=== PATIENT | male | born 1965 | race Caucasian/White ===

== ENCOUNTER 2020-02-28 10:22 | Emergency (ER) | payer OTHER ==
[~2020-02-28] VITALS: Ht 172.7 cm; Wt 75.0 kg
[2020-02-28] MEDS ORDERED: IV NORMAL SALINE 1000ML BAG 1,000 ML IV SCH (10:51)
--- NOTE | 2020-02-28 10:57 | ED.ADGEN ---
Past Medical History Past Medical History: Diabetes-Type I, Hypertension, Kidney Stone Additional Past Medical Histor: STAPH INFECTION ON LEFT LEG W/ SX Past Surgical History: Appendectomy, Cholecystectomy Additional Past Surgical Histo: ROTATOR CUFF SX Smoking Status: Current Some Day Smoker Alcohol Use: None Adult General Chief Complaint Chief Complaint: ABDOMINAL PAIN HPI HPI Patient is a 54 year old male who presents for nausea, vomiting, generalized abdominal pain. Was hospitalized at [facility] 1 week ago and discharged with new prescriptions for insulin, he has not had any since discharge. Was previously on insulin NPH and regular insulin. He was discharged with a prescription for Humulin and Levemir but is unable to afford the medications. Patient states he ran out of his Percocet that he takes for pain. Review of Systems Review of Systems Constitutional: Denies fever or chills. [] Eyes: Denies change in visual acuity. [] HENT: Denies nasal congestion or sore throat. [] Respiratory: Denies cough or shortness of breath. [] Cardiovascular: Denies chest pain or edema. [] GI: Denies abdominal pain, nausea, vomiting, bloody stools or diarrhea. [] : Denies dysuria. [] Musculoskeletal: Denies back pain or joint pain. [] Integument: Denies rash. [] Neurologic: Denies headache, focal weakness or sensory changes. [] Endocrine: Denies polyuria or polydipsia. [] Lymphatic: Denies swollen glands. [] Psychiatric: Denies depression or anxiety. [] Current Medications Current Medications Current Medications Medications (Trade) Dose Ordered Sig/Rock Start Time Stop Time Status Last Admin Dose Admin Morphine Sulfate (Morphine Sulfate) 4 mg PRN Q15MIN PRN 02/28/20 11:00 02/29/20 10:59 02/28/20 11:01 4 MG Ondansetron HCl (Zofran) 4 mg 1X ONCE 02/28/20 11:00 02/28/20 11:01 DC 02/28/20 11:02 4 MG Sodium Chloride 1,000 ml @ 1,000 mls/hr Q1H 02/28/20 10:51 02/28/20 11:50 DC 02/28/20 11:02 1,000 MLS/HR Allergies Allergies Allergies Coded Allergies Type Severity Reaction Last Updated Verified No Known Drug Allergies 10/5/20 No Physical Exam Physical Exam Constitutional: Well developed, well nourished, non-toxic appearance. [] HENT: Normocephalic, atraumatic, bilateral external ears normal, oropharynx moist, no oral exudates, nose normal. [] Eyes: PERRLA, EOMI, conjunctiva normal, no discharge. [] Neck: Normal range of motion, no tenderness, supple, no stridor. [] Cardiovascular:Heart rate regular rhythm, no murmur [] Lungs & Thorax: Bilateral breath sounds clear to auscultation [] Abdomen: Bowel sounds normal, soft, generalized tenderness and voluntary guarding [] Skin: Warm, dry, no erythema, no rash. [] Back: No tenderness, no CVA tenderness. [] Extremities: No tenderness, no cyanosis, no clubbing, ROM intact, no edema. [] Neurologic: Alert and oriented X 3, normal motor function, normal sensory function, no focal deficits noted. [] Psychologic: Affect normal, judgement normal, mood normal. [] Current Patient Data Vital Signs Vital Signs Date Time Temp Pulse Resp B/P (MAP) Pulse Ox O2 Delivery O2 Flow Rate FiO2 02/28/20 10:33 98.1 97 16 173/111 (131) 100 Room Air 98.1 Lab Values Laboratory Tests Test 02/28/20 10:41 02/28/20 10:43 02/28/20 12:25 Glucose (Fingerstick) 367 mg/dL (70-99) H White Blood Count 8.1 x10^3/uL (4.0-11.0) Red Blood Count 4.78 x10^6/uL (4.30-5.70) Hemoglobin 14.2 g/dL (13.0-17.5) Hematocrit 40.5 % (39.0-53.0) Mean Corpuscular Volume 85 fL (79-100) Mean Corpuscular Hemoglobin 30 pg (25-35) Mean Corpuscular Hemoglobin Concent 35 g/dL (31-37) Red Cell Distribution Width 15.1 % (11.5-14.5) H Platelet Count 351 x10^3/uL (140-400) Neutrophils (%) (Auto) 74 % (31-73) H Lymphocytes (%) (Auto) 20 % (24-48) L Monocytes (%) (Auto) 4 % (0-9) Eosinophils (%) (Auto) 1 % (0-3) Basophils (%) (Auto) 1 % (0-3) Neutrophils # (Auto) 6.0 x10^3/uL (1.8-7.7) Lymphocytes # (Auto) 1.6 x10^3/uL (1.0-4.8) Monocytes # (Auto) 0.4 x10^3/uL (0.0-1.1) Eosinophils # (Auto) 0.1 x10^3/uL (0.0-0.7) Basophils # (Auto) 0.1 x10^3/uL (0.0-0.2) Sodium Level 133 mmol/L (136-145) L Potassium Level 4.1 mmol/L (3.5-5.1) Chloride Level 99 mmol/L (98-107) Carbon Dioxide Level 24 mmol/L (21-32) Anion Gap 10 (6-14) Blood Urea Nitrogen 12 mg/dL (8-26) Creatinine 0.8 mg/dL (0.7-1.3) Estimated GFR (Cockcroft-Gault) 100.0 BUN/Creatinine Ratio 15 (6-20) Glucose Level 366 mg/dL (70-99) H Calcium Level 9.7 mg/dL (8.5-10.1) Phosphorus Level 3.7 mg/dL (2.6-4.7) Magnesium Level 1.7 mg/dL (1.8-2.4) L Total Bilirubin 0.4 mg/dL (0.2-1.0) Aspartate Amino Transferase (AST) 29 U/L (15-37) Alanine Aminotransferase (ALT) 41 U/L (16-63) Alkaline Phosphatase 111 U/L (46-116) Total Protein 7.7 g/dL (6.4-8.2) Albumin 4.0 g/dL (3.4-5.0) Albumin/Globulin Ratio 1.1 (1.0-1.7) Urine Collection Type Void Urine Color Yellow Urine Clarity Clear Urine pH 6.5 (<5.0-8.0) Urine Specific Gideon >=1.030 (1.000-1.030) Urine Protein 100 mg/dL (NEG-TRACE) Urine Glucose (UA) >=1000 mg/dL (NEG) Urine Ketones (Stick) 40 mg/dL (NEG) Urine Blood Negative (NEG) Urine Nitrite Negative (NEG) Urine Bilirubin Negative (NEG) Urine Urobilinogen Dipstick 0.2 mg/dL (0.2 mg/dL) Urine Leukocyte Esterase Negative (NEG) Urine RBC 0 /HPF (0-2) Urine WBC Occ /HPF (0-4) Urine Squamous Epithelial Cells Few /LPF Urine Bacteria Few /HPF (0-FEW) Laboratory Tests 02/28/20 10:43 Laboratory Tests 02/28/20 10:43 EKG EKG Heart rate 85, normal sinus rhythm, normal intervals, no ST elevation. Normal conduction, normal QRS [] Interpretation Time: 1115 Radiology/Procedures Radiology/Procedures EXAM: PORTABLE CHEST 1V 02/28/2020 10:51 AM CLINICAL INDICATION: Chest pain COMPARISON: Chest radiograph 02/19/2020 TECHNIQUE: AP upright view of the chest FINDINGS: A loop recorder projects over the heart. The heart and mediastinum are normal. Lungs are well-expanded. A nodular opacity projecting over the right lung base was not seen on prior exam but may be a nipple shadow. No consolidation, pleural effusion, or pneumothorax. Pulmonary vascularity is normal. The thoracic skeleton is intact. IMPRESSION: Nodular opacity projecting over the right lung base may be a nipple shadow. This could be confirmed with nipple markers. Otherwise negative radiograph of the chest. [] Course & Med Decision Making Course & Med Decision Making Pertinent Labs and Imaging studies reviewed. (See chart for details) [] Dragon Disclaimer Dragon Disclaimer This electronic medical record was generated, in whole or in part, using a voice recognition dictation system. Departure Departure Impression: Primary Impression: Abdominal pain Additional Impression: Uncontrolled diabetes mellitus Disposition: 01 HOME, SELF-CARE Condition: IMPROVED Referrals: Dr. Tinoco Patient Instructions: Correction Insulin, How and Where to Give Insulin Injections, Adult Additional Instructions: [facility] [address] [place] [address] [facility] [address] [place] [address] [place] [address] [facility] [address], [place] [address] Count Includes [facility] [address] [place] [address] [address] [place] [address] [address] [place] [address] [facility] [address] [place] [address] [facility] [address] [place] [address] [facility] [address] [place] [address] Scripts Oxycodone/Apap 5-325 (PERCOCET 5-325 MG TABLET ) 1 Each Tablet 2 TAB PO prn q8 PRN for PAIN for 2 Days, #12 TAB 0 Refills Prov: JAIME CARDONA MD 02/28/20 Insulin NPH Human Isophane (Novolin N Flexpen) 100 Unit/1 Ml Insuln.pen 15 UNIT SQ BID, #100 EACH Prov: JAIME CARDONA MD 02/28/20 Insulin Regular, Human (NOVOLIN R) 100 Unit/1 Ml Vial 7 UNIT IJ TID, #100 EACH Prov: JAIME CARDONA MD 02/28/20 Metoclopramide Hcl (REGLAN) 5 Mg Tablet 5 MG PO BIDAC for 7 Days, #14 TAB 0 Refills Prov: JAIME CARDONA MD 02/28/20 Problem Qualifiers JAIME CARDONA MD Feb 28, 2020 10:57
[2020-02-28] MEDS ORDERED: ONDANSETRON PF 4 MG/2 ML VIAL. IV ONE (11:00)
[2020-02-28] MEDS: MORPHINE SULFATE 4 MG/ML VIAL. IV/SQ PRN ×2 (11:01→13:15)
[2020-02-28 11:09] LABS: BASO # 0.1 x10^3/uL (0.0-0.2); BASO % 1 % (0-3); EOS # 0.1 x10^3/uL (0.0-0.7); EOS % 1 % (0-3); HEMATOCRIT 40.5 % (39.0-53.0); HEMOGLOBIN 14.2 g/dL (13.0-17.5); LYMPH # 1.6 x10^3/uL (1.0-4.8); LYMPH % 20 % (24-48); MEAN CORPUSCULAR HEMOGLOBIN 30 pg (25-35); MEAN CORPUSCULAR HGB CONC 35 g/dL (31-37); MEAN CORPUSCULAR VOLUME 85 fL (79-100); MONO # 0.4 x10^3/uL (0.0-1.1); MONO % 4 % (0-9); NEUT % 74 % (31-73); PLATELET COUNT 351 x10^3/uL (140-400); RED BLOOD COUNT 4.78 x10^6/uL (4.30-5.70); RED CELL DISTRIBUTION WIDTH 15.1 % (11.5-14.5); WHITE BLOOD COUNT 8.1 x10^3/uL (4.0-11.0)
[2020-02-28 11:21] LABS: CALCIUM 9.7 mg/dL (8.5-10.1); CREATININE 0.8 mg/dL (0.7-1.3)
[2020-02-28 11:26] LABS: ALBUMIN/GLOBULIN RATIO 1.1 (1.0-1.7); MAGNESIUM 1.7 mg/dL (1.8-2.4); PHOSPHORUS 3.7 mg/dL (2.6-4.7); TOTAL BILIRUBIN 0.4 mg/dL (0.2-1.0); TOTAL PROTEIN 7.7 g/dL (6.4-8.2)
[2020-02-28 11:27] LABS: POTASSIUM 4.1 mmol/L (3.5-5.1)
--- NOTE | 2020-02-28 11:30 | RAD ---
EXAM: PORTABLE CHEST 1V 02/28/2020 10:51 AM CLINICAL INDICATION: Chest pain COMPARISON: Chest radiograph 02/19/2020 TECHNIQUE: AP upright view of the chest FINDINGS: A loop recorder projects over the heart. The heart and mediastinum are normal. Lungs are well-expanded. A nodular opacity projecting over the right lung base was not seen on prior exam but may be a nipple shadow. No consolidation, pleural effusion, or pneumothorax. Pulmonary vascularity is normal. The thoracic skeleton is intact. IMPRESSION: Nodular opacity projecting over the right lung base may be a nipple shadow. This could be confirmed with nipple markers. Otherwise negative radiograph of the chest. Electronically signed by: Jennifer Winslow MD (02/28/2020 11:27 AM) [id number]
[2020-02-28 12:36] LABS: BILIRUBIN,URINE NEGATIVE (NEG); CLARITY,URINE CLEAR; COLOR,URINE YELLOW; NITRITE,URINE NEGATIVE (NEG); PH,URINE 6.5 (<5.0-8.0); PROTEIN,URINE 100 mg/dL (NEG-TRACE); UROBILINOGEN,URINE 0.2 mg/dL (0.2 mg/dL)
[2020-02-28 12:42] LABS: BACTERIA,URINE FEW /HPF (0-FEW); RBC,URINE 0 /HPF (0-2); WBC,URINE OCC /HPF (0-4)
--- NOTE | 2020-02-28 12:49 | EKG ---
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
[2020-02-28] MEDS ORDERED: OXYC1TAB15 PO (13:17)
[2020-02-28] MEDS ORDERED: INSU100V11 IJ (13:17)
[2020-02-28] MEDS ORDERED: METO5TAB55 PO (13:17)
[2020-02-28] MEDS ORDERED: INSU100I51 SQ (13:17)
[2020-02-28 13:33] VITALS: BP 146/87
[2020-02-28] MEDS ORDERED: MORPHINE SULFATE 2 MG/ML VIAL. IV ONE (13:45)
== END 2020-02-28 13:43 | disposition home or self-care (01) ==
LOC: ER 10:22
DX: R10.84 Generalized abdominal pain (principal); R11.2 Nausea with vomiting, unspecified; E10.9 Type 1 diabetes mellitus without complications; I10 Essential (primary) hypertension; Z87.442 Personal history of urinary calculi; Z90.89 Acquired absence of other organs; Z90.49 Acquired absence of other specified parts of digestive tract; Z98.890 Other specified postprocedural states; Z87.891 Personal history of nicotine dependence
CPT/HCPCS: 36415; 71045; 80053; 81001; 82962; 83735; 84100; 85025; 93005; 96361; 96374; 96375; 96376; 99285; J2270; J2405; J7030

== ENCOUNTER 2020-03-08 09:50 | Inpatient (IN) | payer OTHER ==
[~2020-03-08] VITALS: Ht 172.7 cm; Wt 73.8 kg
[~2020-03-08 09:50] MED LIST: INSU100I51 SQ; INSU100V11 IJ; METO5TAB55 PO; OXYC1TAB15 PO
[2020-03-08] MEDS ORDERED: IV NORMAL SALINE 1000ML BAG 1,000 ML IV SCH (10:18)
--- NOTE | 2020-03-08 10:21 | PHYS DOC ---
Past Medical History Past Medical History: Diabetes-Type I, Hypertension, Kidney Stone Additional Past Medical Histor: STAPH INFECTION ON LEFT LEG W/ SX Past Surgical History: Appendectomy, Cholecystectomy Additional Past Surgical Histo: ROTATOR CUFF SX Smoking Status: Current Some Day Smoker Alcohol Use: None General Adult EDM: Chief Complaint: NAUSEA/VOMITING/DIARRHA HPI: HPI: 54M with PMH of IDDM, p/w abd pain. Reports dull epigastric pain that began last night. Associated nausea and nonbloody/nonbilious emesis. Also reports some loose bowel movements. Was seen February 27 for abdominal pain as well. Prior to that, he was admitted to [place] for DM. Prior appendectomy and cholecystectomy. Review of Systems: Review of Systems: Gen: No fever, chills. Eyes: No blurred vision, diplopia. ENT: No nasal congestion, sore throat. CV: No CP, palpitations. Resp. No SOB, cough. GI: Reports abd pain, N/V. : No dysuria, hematuria. Reports polyuria. Neuro: No CHAPMAN, dizziness, weakness. MSK: No myalgia, arthralgia, back pain. Skin: No acute rash or lesion. Heart Score: Risk Factors: Risk Factors: DM, Current or recent (<one month) smoker, HTN, HLP, family history of CAD, obesity. Risk Scores: Score 0 - 3: 2.5% MACE over next 6 weeks - Discharge Home Score 4 - 6: 20.3% MACE over next 6 weeks - Admit for Clinical Observation Score 7 - 10: 72.7% MACE over next 6 weeks - Early Invasive Strategies Allergies: Allergies: Allergies Coded Allergies Type Severity Reaction Last Updated Verified No Known Drug Allergies 02/28/20 No Physical Exam: PE: Gen: NAD. Head: NC/AT. Eyes: No scleral icterus. No conjunctival injection. ENT: MMM. Posterior OP clear. Neck: Supple. NT. CV: RRR. Peripheral pulses intact. Resp: CTAB. Abd: Soft. Nondistended. Mid to upper abdominal tenderness without rebound, guarding, rigidity. MSK: No peripheral cyanosis. No edema. Neuro: Awake and alert. Skin. Warm. Dry. Psych: Appropriate mood & affect. Current Patient Data: Labs: Laboratory Tests Test 03/08/20 10:00 Glucose (Fingerstick) 491 mg/dL (70-99) H EKG: EKG: [] Radiology/Procedures: Radiology/Procedures: [] Course & Med Decision Making: Course & Med Decision Making Pertinent Labs and Imaging studies reviewed. (See chart for details) In summary, 54-year-old male with significant history of insulin-dependent diabetes mellitus with noncompliance, who presents evaluation of abdominal pain, nausea and vomiting. Hyperglycemic 491 on fingerstick. Elevated gap but normal ketones. CT abdomen/pelvis reveals findings consistent with colitis receiving Rocephin and Flagyl. Will be admitted for management of HHS, colitis, intractable nausea and vomiting. Insulin drip ordered. Dragon Disclaimer: Dragon Disclaimer: This electronic medical record was generated, in whole or in part, using a voice recognition dictation system. Departure Departure Impression: Primary Impression: Hyperosmolar hyperglycemic state (HHS) Additional Impressions: Colitis Intractable nausea and vomiting Disposition: ADMITTED INPT THIS HOSP Admitting Physician: DOLORES Condition: STABLE Referrals: SEFERINO WARE (PCP) DAKOTAH HARRIS DO Mar 08, 2020 10:21
[2020-03-08] MEDS ORDERED: ONDANSETRON PF 4 MG/2 ML VIAL. IVP ONE (10:30)
[2020-03-08] MEDS: MORPHINE SULFATE 4 MG/ML VIAL. IV/SQ PRN ×2 (10:32→12:53)
[2020-03-08 10:33] LABS: BASO # 0.1 x10^3/uL (0.0-0.2); BASO % 1 % (0-3); EOS % 0 % (0-3); HEMATOCRIT 45.8 % (39.0-53.0); HEMOGLOBIN 15.7 g/dL (13.0-17.5); LYMPH # 1.8 x10^3/uL (1.0-4.8); LYMPH % 13 % (24-48); MEAN CORPUSCULAR HEMOGLOBIN 29 pg (25-35); MEAN CORPUSCULAR HGB CONC 34 g/dL (31-37); MEAN CORPUSCULAR VOLUME 86 fL (79-100); MONO # 0.3 x10^3/uL (0.0-1.1); MONO % 2 % (0-9); NEUT # 11.3 x10^3/uL (1.8-7.7); NEUT % 83 % (31-73); PLATELET COUNT 338 x10^3/uL (140-400); RED BLOOD COUNT 5.32 x10^6/uL (4.30-5.70); RED CELL DISTRIBUTION WIDTH 14.7 % (11.5-14.5); WHITE BLOOD COUNT 13.6 x10^3/uL (4.0-11.0)
[2020-03-08 10:40] LABS: CALCIUM 10.1 mg/dL (8.5-10.1); CREATININE 1.3 mg/dL (0.7-1.3); GFR 57.1; POTASSIUM 3.9 mmol/L (3.5-5.1)
[2020-03-08 10:43] LABS: ALBUMIN 4.1 g/dL (3.4-5.0); TOTAL BILIRUBIN 0.6 mg/dL (0.2-1.0); TOTAL PROTEIN 8.3 g/dL (6.4-8.2)
[2020-03-08] MEDS ORDERED: IOHEXOL 300 MG/ML 100ML VIAL. IV ONE (10:45)
[2020-03-08 11:22] LABS: BILIRUBIN,URINE NEGATIVE (NEG); CLARITY,URINE CLEAR; COLOR,URINE YELLOW; NITRITE,URINE NEGATIVE (NEG); PROTEIN,URINE 100 mg/dL (NEG-TRACE); UROBILINOGEN,URINE 0.2 mg/dL (0.2 mg/dL)
--- NOTE | 2020-03-08 11:30 | RAD ---
CT abdomen and pelvis with contrast History: Mid abdominal pain Technique: After the administration of intravenous contrast, CT imaging was performed of the abdomen and pelvis. No oral contrast was given. Multiplanar images are reviewed. Exposure: One or more of the following individualized dose reduction techniques were utilized for this examination: 1. Automated exposure control 2. Adjustment of the mA and/or kV according to patient size 3. Use of iterative reconstruction technique. Comparison: February 19, 2020 Findings: There is no significant abnormality of the visualized lung bases. There is no significant focal abnormality of the liver, spleen, pancreas, adrenal glands. There is likely hepatic steatosis. Both kidneys enhance without hydronephrosis. There is again some nonspecific strandy change of the bilateral perinephric fat. There is again 1 cm hypodense lesion of the superior left kidney, density measurements suggestive of cyst 17 Hounsfield units. There has been cholecystectomy. Accurate evaluation of bowel is limited without oral contrast. No free air or free fluid is identified. There is scattered colonic diverticulosis greatest of the sigmoid colon. There is appearance of long segment variable colonic wall thickening throughout the colon greatest descending and proximal to mid sigmoid colon. There has been appendectomy. There is now appearance of circumferential urinary bladder wall thickening. Impression: 1. Suboptimally evaluated without oral contrast, there is appearance of variable long segment colonic wall thickening as may be seen with colitis. There is scattered colonic diverticulosis greatest of the sigmoid colon. 2. There is now appearance of circumferential urinary bladder wall thickening, could be due to incomplete distention unless suspicion for cystitis. 3. There is likely hepatic steatosis. 4. There has been appendectomy and cholecystectomy. 5. There is likely small cyst of the superior left kidney. Electronically signed by: Alireza Bishop MD (03/08/2020 11:27 AM) [facility]
[2020-03-08 11:38] LABS: BACTERIA,URINE 0 /HPF (0-FEW); RBC,URINE RARE /HPF (0-2); WBC,URINE RARE /HPF (0-4)
[2020-03-08] MEDS ORDERED: METOCLOPRAMIDE HCL 10 MG/2 ML VIAL. ONE (13:23)
[2020-03-08] MEDS ORDERED: METOCLOPRAMIDE HCL 10 MG/2 ML VIAL. IVP ONE (13:30)
[2020-03-08] MEDS ORDERED: INSULIN,REGULAR 100 UNIT DRIP 100 ML IV ONE (13:45)
[2020-03-08] MEDS ORDERED: cefTRIAXone IV Push 1 GM VIAL. IVP ONE (13:45)
[2020-03-08] MEDS ORDERED: ONDANSETRON PF 4 MG/2 ML VIAL. IV PRN (14:30)
--- NOTE | 2020-03-08 15:28 | HP ---
ADMIT DATE: 03/08/2020 CHIEF COMPLAINT: Nausea, vomiting, diarrhea. HISTORY OF PRESENT ILLNESS: The patient is a pleasant 54-year-old male who has type 1 diabetes. I am not sure if he is complying with his meds, basically he presents with nausea, vomiting, and diarrhea. He has associated epigastric pain. It was all night long, rates it at 09/10, worse with food, better with no food, describes as very irritating. While in the ER, we have noticed that he has a hyperglycemic hyperosmolar state and leukocytosis. We are going to admit the patient and he is currently on an insulin drip. PAST MEDICAL HISTORY: Noncompliance, diabetes, hypertension, hyperlipidemia, kidney stones, staph infection of the left leg, appendectomy, cholecystectomy, rotator cuff surgery, and tobacco abuse. ALLERGIES: None. FAMILY HISTORY: Diabetes. SOCIAL HISTORY: He smokes. No drinking or drugs. MEDICATIONS: Reviewed, please refer to the MRAD. REVIEW OF SYSTEMS: GENERAL: No history of weight change, weakness or fevers. SKIN: No bruising, hair changes or rashes. EYES: No blurred, double or loss of vision. NOSE AND THROAT: No history of nosebleeds, hoarseness or sore throat. HEART: No history of palpitations, chest pain or shortness of breath on exertion. LUNGS: Denies cough, hemoptysis, wheezing or shortness of breath. GASTROINTESTINAL: He complains of nausea, vomiting and diarrhea. GENITOURINARY: No history of frequency, urgency, hesitancy or nocturia. NEUROLOGIC: Denies history of numbness, tingling, tremor or weakness. PSYCHIATRIC: No history of panic, anxiety or depression. ENDOCRINE: No history of heat or cold intolerance, polyuria or polydipsia. EXTREMITIES: Denies muscle weakness, joint pain, pain on walking or stiffness. PHYSICAL EXAMINATION: VITALS: Within normal limits and are stable. GENERAL: No apparent distress. Alert and oriented. HEENT: Normal cephalic atraumatic, external auditory canals are patent EYES: Extraocular muscles are intact, pupils are equally round and reactive to light and accommodation MUSCULOSKELETAL: Well developed, well nourished, good range of motion ENDOCRINE: No thyromegaly was palpated LYMPHATICS: No cervical chain or axillary nodes were noted HEMATOPOIETIC: No bruising NECK: Supple, no JVD, no thyromegaly was noted. LUNGS: Clear to auscultation in all lung langford without rhonchi or wheezing. HEART: RRR, S1, S2 present. Peripheral pulses intact, no obvious murmurs were noted. ABDOMEN: Soft, nontender. Positive bowel sounds no organomegaly, normal bowel sounds. EXTREMITIES: Without any cyanosis, clubbing, or edema. Pedal pulses intact, Homans sign is negative. NEUROLOGIC: Normal speech, normal tone. A & O x3, moves all extremities, no obvious focal deficits. PSYCHIATRIC: Normal affect, normal mood. Stable. SKIN: No ulcerations or rashes, good skin turgor, no jaundice. VASCULAR: Good capillary refill, neurovascular bundle appears to be intact. IMAGING: CT of the abdomen shows some colonic thickening and hepatic steatosis. ASSESSMENT AND PLAN: Hyperglycemic hyperosmolar state colitis, leukocytosis of 13.6. Electrolyte disturbance with hyponatremia, sodium of 135. The patient has been admitted. We will start insulin drip, IV fluids. Trend labs. Consult GI. DVT prophylaxis. Full code. P.r.n. Zofran, IV saline p.r.n. morphine, IV ceftriaxone, IV Flagyl. ICU monitoring. PROGNOSIS: Guarded. SMITHA ANGEL DO DR: CHARMAINE/chata JOB#: [id number] / [id number]
--- NOTE | 2020-03-08 16:00 | PDOC2 ---
GI CONSULT Date of Service: DATE: 03/08/20 TIME: 15:46 Reason For Consult: nausea vomiting diarrhea abnormal cat scan HPI: HPI: 54 y/o male seen in ER. Reports recurrent n/v and upper abdominal pain ("like being punched," worse w/ vomiting). First occurred a couple months ago - admitted to [facility], was told "colitis," and treated w/ IV atbx and insulin drip. Unable to fill insulin Rx after that, came to ER here w/ similar but less severe symptoms, given different Rx. Back again - everything more severe this time. Symptoms recurred this morning w/o precipitating events. Has felt better in between each visit to the hospital. Denies reflux/heartburn, dysphagia, hematemesis, constipation, hematochezia, melena, and weight loss. Has "diarrhea" - one loose stool every 3-4 days. EGD and colonoscopy for dysphagia in [place] ~10 years ago were reportedly normal. Diverticulosis and likely hepatic steatosis on imaging. S/p cholecystectomy (doesn't recall stones). No liver or pancreas history. Percocet at home for LE nerve pain, denies NSAIDs, also uses marijuana sometimes for pain. Sees PCP for diabetes treatment, not sure what last A1c was. PMH: PMH: HTN, DM, neuropathy, nephrolithiasis appendectomy, cholecystectomy, right rotator cuff surgery x 3, lithotripsy, left leg surgery for staph infection FH: Family History: Cancer (mother - ovarian) Social History: Smoke: Quit ALCOHOL: none Drugs: Marijuana (occasionally for pain) ROS: GEN: Denies fevers, chills, sweats HEENT: Denies blurred vision, sore throat CV: Denies chest pain RESP: Denies shortness of air, cough GI: Per HPI : Denies hematuria, dysuria ENDO: Denies weight changes NEURO: LE neuropathy pain MSK: Denies weakness, joint pain/swelling SKIN: Denies jaundice, pruritus Vitals: Vitals: Vital Signs Date Time Temp Pulse Resp B/P (MAP) Pulse Ox O2 Delivery O2 Flow Rate FiO2 03/08/20 12:53 16 100 Room Air 03/08/20 10:12 98.6 73 151/87 (108) 98.6 Labs: Labs: Laboratory Tests Test 03/08/20 10:00 03/08/20 10:01 03/08/20 11:10 03/08/20 13:54 Glucose (Fingerstick) 491 mg/dL (70-99) 423 mg/dL (70-99) White Blood Count 13.6 x10^3/uL (4.0-11.0) Red Blood Count 5.32 x10^6/uL (4.30-5.70) Hemoglobin 15.7 g/dL (13.0-17.5) Hematocrit 45.8 % (39.0-53.0) Mean Corpuscular Volume 86 fL (79-100) Mean Corpuscular Hemoglobin 29 pg (25-35) Mean Corpuscular Hemoglobin Concent 34 g/dL (31-37) Red Cell Distribution Width 14.7 % (11.5-14.5) Platelet Count 338 x10^3/uL (140-400) Neutrophils (%) (Auto) 83 % (31-73) Lymphocytes (%) (Auto) 13 % (24-48) Monocytes (%) (Auto) 2 % (0-9) Eosinophils (%) (Auto) 0 % (0-3) Basophils (%) (Auto) 1 % (0-3) Neutrophils # (Auto) 11.3 x10^3/uL (1.8-7.7) Lymphocytes # (Auto) 1.8 x10^3/uL (1.0-4.8) Monocytes # (Auto) 0.3 x10^3/uL (0.0-1.1) Eosinophils # (Auto) 0.0 x10^3/uL (0.0-0.7) Basophils # (Auto) 0.1 x10^3/uL (0.0-0.2) Sodium Level 135 mmol/L (136-145) Potassium Level 3.9 mmol/L (3.5-5.1) Chloride Level 97 mmol/L (98-107) Carbon Dioxide Level 19 mmol/L (21-32) Anion Gap 19 (6-14) Blood Urea Nitrogen 19 mg/dL (8-26) Creatinine 1.3 mg/dL (0.7-1.3) Estimated GFR (Cockcroft-Gault) 57.1 BUN/Creatinine Ratio 15 (6-20) Glucose Level 484 mg/dL (70-99) Calcium Level 10.1 mg/dL (8.5-10.1) Magnesium Level 2.0 mg/dL (1.8-2.4) Total Bilirubin 0.6 mg/dL (0.2-1.0) Aspartate Amino Transf (AST/SGOT) 31 U/L (15-37) Alanine Aminotransferase (ALT/SGPT) 37 U/L (16-63) Alkaline Phosphatase 109 U/L (46-116) Total Protein 8.3 g/dL (6.4-8.2) Albumin 4.1 g/dL (3.4-5.0) Albumin/Globulin Ratio 1.0 (1.0-1.7) Lipase 133 U/L (73-393) Acetone Level Neg (NEG) Urine Collection Type Unknown Urine Color Yellow Urine Clarity Clear Urine pH 6.0 (<5.0-8.0) Urine Specific [place] >=1.030 (1.000-1.030) Urine Protein 100 mg/dL (NEG-TRACE) Urine Glucose (UA) >=1000 mg/dL (NEG) Urine Ketones (Stick) 40 mg/dL (NEG) Urine Blood Negative (NEG) Urine Nitrite Negative (NEG) Urine Bilirubin Negative (NEG) Urine Urobilinogen Dipstick 0.2 mg/dL (0.2 mg/dL) Urine Leukocyte Esterase Negative (NEG) Urine RBC Rare /HPF (0-2) Urine WBC Rare /HPF (0-4) Urine Squamous Epithelial Cells Few /LPF Urine Bacteria 0 /HPF (0-FEW) Test 03/08/20 15:21 Glucose (Fingerstick) 369 mg/dL (70-99) Allergies: Coded Allergies: No Known Drug Allergies (Unverified , 02/28/20) Medications: Current Medications Medications (Trade) Dose Ordered Sig/Rock Route PRN Reason Start Time Stop Time Status Last Admin Dose Admin Morphine Sulfate (Morphine Sulfate) 4 mg PRN Q15MIN PRN IV/SQ PAIN GREATER THAN 3/10 03/08/20 10:30 03/09/20 10:29 03/08/20 12:53 Sodium Chloride 1,000 ml @ 1,000 mls/hr Q1H IV 03/08/20 10:18 03/08/20 11:17 DC 03/08/20 10:31 Ondansetron HCl (Zofran) 4 mg 1X ONCE IVP 03/08/20 10:30 03/08/20 10:31 DC 03/08/20 10:32 Iohexol (Omnipaque 300 Mg/ml) 60 ml 1X ONCE IV 03/08/20 10:45 03/08/20 10:47 DC 03/08/20 11:10 Metoclopramide HCl (Reglan Vial) 10 mg 1X ONCE IVP 03/08/20 13:30 03/08/20 13:31 DC 03/08/20 13:29 Insulin Human Regular 100 ml @ 0 mls/hr 1X ONCE IV 03/08/20 13:45 03/08/20 13:46 DC 03/08/20 14:23 Ceftriaxone Sodium (Rocephin) 1 gm 1X ONCE IVP 03/08/20 13:45 03/08/20 13:46 DC 03/08/20 14:01 Metronidazole 100 ml @ 100 mls/hr 1X ONCE IV 03/08/20 13:45 03/08/20 14:44 DC 03/08/20 14:01 Imaging: Imaging: CT A/P 03/08 Impression: 1. Suboptimally evaluated without oral contrast, there is appearance of variable long segment colonic wall thickening as may be seen with colitis. There is scattered colonic diverticulosis greatest of the sigmoid colon. 2. There is now appearance of circumferential urinary bladder wall thickening, could be due to incomplete distention unless suspicion for cystitis. 3. There is likely hepatic steatosis. 4. There has been appendectomy and cholecystectomy. 5. There is likely small cyst of the superior left kidney. PE: GEN: NAD HEENT: Atraumatic, PERRL LUNGS: CTAB HEART: RRR ABD: NABS, S/ND, epigastric discomfort EXTREMITY: No edema SKIN: No rashes, no jaundice NEURO/PSYCH: A & O 3 A/P: A/P: Recurrent n/v, upper abd pain, loose stool every 3-4 days Leukocytosis, uncontrolled DM, elevated total protein Abnormal CT - possible colitis, possible cystitis CRC screen - reportedly normal ~10 years ago in [place] Diverticulosis S/p cholecystectomy Likely hepatic steatosis Chronic pain on Percocet Marijuana use -- Hyperglycemia/DM treatment, IV fluids, and chronic pain control per Dr. Reyes. Given IV Flagyl and Rocephin in ER - will discuss ?need to continue w/ Dr. Rankin. Recheck labs in a.m. 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 If really has diarrhea (doesn't seem like it), check stool studies - has had atbx recently, will order for completeness. Says he's thirsty - okay for clears, ADAT per GI. Check tox screen. Will plan for outpt EGD and colonoscopy +/- GES. EVANGELIST VELAZQUEZ Mar 08, 2020 16:00
[2020-03-08 16:39] LABS: BARBITURATES NEG (NEG); BENZODIAZEPINES NEG (NEG); CANNABINOIDS POS (NEG); COCAINE NEG (NEG); METHADONE NEG (NEG); OPIATES POS (NEG); PHENCYCLIDINE NEG (NEG)
[2020-03-08 16:41] LABS: AMPHETAMINE/METHAMPHETAMINE NEG (NEG)
[2020-03-08 20:00] VITALS: BP 141/74
[2020-03-08] MEDS ORDERED: PROCHLORPERAZINE 10 MG/2 ML VIAL. IM PRN (21:15)
[2020-03-08] MEDS: MORPHINE SULFATE 2 MG/ML VIAL. IV PRN (21:57)
[2020-03-08 23:03] VITALS: BP 139/80
[2020-03-09 01:09] LABS: HEMOGLOBIN A1C 9.6 % (4.8-5.6)
[2020-03-09 02:41] VITALS: BP 135/84
[2020-03-09] MEDS ORDERED: LISI1TAB23 PO (05:06)
[2020-03-09] MEDS ORDERED: CITA20TA9 PO (05:06)
[2020-03-09 07:00] VITALS: BP 145/84
[2020-03-09] MEDS: PANTOPRAZOLE IV PUSH 40 MG VIAL. IVP SCH ×2 (08:00→10:56)
[2020-03-09 09:08] LABS: HEMATOCRIT 41.9 % (39.0-53.0); HEMOGLOBIN 14.3 g/dL (13.0-17.5); RED BLOOD COUNT 4.89 x10^6/uL (4.30-5.70)
[2020-03-09 09:22] LABS: ALBUMIN 3.7 g/dL (3.4-5.0); ALBUMIN/GLOBULIN RATIO 0.9 (1.0-1.7); CALCIUM 9.4 mg/dL (8.5-10.1); GFR 77.3; POTASSIUM 3.8 mmol/L (3.5-5.1); TOTAL BILIRUBIN 0.7 mg/dL (0.2-1.0); TOTAL PROTEIN 7.8 g/dL (6.4-8.2)
--- NOTE | 2020-03-09 09:26 | PDOC ---
[employer] PROGRESS NOTE Date of Service DOS: DATE: 03/09/20 TIME: 09:20 Chief Complaint Chief Complaint Recurrent n/v, upper abd pain, loose stool every 3-4 days Leukocytosis, uncontrolled DM, elevated total protein DM2 - A1c 9.[address] - possible colitis, possible cystitis CRC screen - reportedly normal ~10 years ago in [place] Diverticulosis S/p cholecystectomy Likely hepatic steatosis Chronic pain on Percocet Marijuana use History of Present Illness History of Present Illness Mr Christianson is a 54 yo M w/ PMHx DM, HTN, HLD admitted with nausea, vomiting, and diarrhea. He has associated epigastric pain. It was all night long, rates it at 09/10, worse with food, better with no food, describes as very irritating. Admitted on insulin GTT for hyperglycemic hyperosmolar state and leukocytosis. Afebrile. Still with epigastric pain on taking liquid diet. Glucose better controlled today. No CP or SOB. Vitals/I&O Vitals/I&O: Vital Signs Date Time Temp Pulse Resp B/P (MAP) Pulse Ox O2 Delivery O2 Flow Rate FiO2 03/09/20 07:00 98.0 88 19 145/84 (104) 98 Room Air 98.0 I & O 0 03/08/20 03/08/20 03/09/20 15:00 23:00 07:00 Intake Total 800 ml 550 ml Output Total 0 ml Balance 800 ml 550 ml Physical Exam General: Alert, Oriented X3, Cooperative Heart: Regular rate, Normal S1, Normal S2 Lungs: Clear Abdomen: Normal bowel sounds, Soft Extremities: No clubbing, No cyanosis Skin: No rashes, No breakdown Labs Labs: Laboratory Tests Test 03/08/20 10:00 03/08/20 10:01 03/08/20 11:10 03/08/20 13:54 Glucose (Fingerstick) 491 mg/dL (70-99) 423 mg/dL (70-99) White Blood Count 13.6 x10^3/uL (4.0-11.0) Red Blood Count 5.32 x10^6/uL (4.30-5.70) Hemoglobin 15.7 g/dL (13.0-17.5) Hematocrit 45.8 % (39.0-53.0) Mean Corpuscular Volume 86 fL (79-100) Mean Corpuscular Hemoglobin 29 pg (25-35) Mean Corpuscular Hemoglobin Concent 34 g/dL (31-37) Red Cell Distribution Width 14.7 % (11.5-14.5) Platelet Count 338 x10^3/uL (140-400) Neutrophils (%) (Auto) 83 % (31-73) Lymphocytes (%) (Auto) 13 % (24-48) Monocytes (%) (Auto) 2 % (0-9) Eosinophils (%) (Auto) 0 % (0-3) Basophils (%) (Auto) 1 % (0-3) Neutrophils # (Auto) 11.3 x10^3/uL (1.8-7.7) Lymphocytes # (Auto) 1.8 x10^3/uL (1.0-4.8) Monocytes # (Auto) 0.3 x10^3/uL (0.0-1.1) Eosinophils # (Auto) 0.0 x10^3/uL (0.0-0.7) Basophils # (Auto) 0.1 x10^3/uL (0.0-0.2) Sodium Level 135 mmol/L (136-145) Potassium Level 3.9 mmol/L (3.5-5.1) Chloride Level 97 mmol/L (98-107) Carbon Dioxide Level 19 mmol/L (21-32) Anion Gap 19 (6-14) Blood Urea Nitrogen 19 mg/dL (8-26) Creatinine 1.3 mg/dL (0.7-1.3) Estimated GFR (Cockcroft-Gault) 57.1 BUN/Creatinine Ratio 15 (6-20) Glucose Level 484 mg/dL (70-99) Hemoglobin A1c 9.6 % (4.8-5.6) Calcium Level 10.1 mg/dL (8.5-10.1) Magnesium Level 2.0 mg/dL (1.8-2.4) Total Bilirubin 0.6 mg/dL (0.2-1.0) Aspartate Amino Transf (AST/SGOT) 31 U/L (15-37) Alanine Aminotransferase (ALT/SGPT) 37 U/L (16-63) Alkaline Phosphatase 109 U/L (46-116) Total Protein 8.3 g/dL (6.4-8.2) Albumin 4.1 g/dL (3.4-5.0) Albumin/Globulin Ratio 1.0 (1.0-1.7) Lipase 133 U/L (73-393) Acetone Level Neg (NEG) Urine Collection Type Unknown Urine Color Yellow Urine Clarity Clear Urine pH 6.0 (<5.0-8.0) Urine Specific [place] >=1.030 (1.000-1.030) Urine Protein 100 mg/dL (NEG-TRACE) Urine Glucose (UA) >=1000 mg/dL (NEG) Urine Ketones (Stick) 40 mg/dL (NEG) Urine Blood Negative (NEG) Urine Nitrite Negative (NEG) Urine Bilirubin Negative (NEG) Urine Urobilinogen Dipstick 0.2 mg/dL (0.2 mg/dL) Urine Leukocyte Esterase Negative (NEG) Urine RBC Rare /HPF (0-2) Urine WBC Rare /HPF (0-4) Urine Squamous Epithelial Cells Few /LPF Urine Bacteria 0 /HPF (0-FEW) Urine Opiates Screen Pos (NEG) Urine Methadone Screen Neg (NEG) Urine Barbiturates Neg (NEG) Urine Phencyclidine Screen Neg (NEG) Urine Amphetamine/Methamphetamine Neg (NEG) Urine Benzodiazepines Screen Neg (NEG) Urine Cocaine Screen Neg (NEG) Urine Cannabinoids Screen Pos (NEG) Urine Ethyl Alcohol Neg (NEG) Test 03/08/20 15:21 03/08/20 16:27 03/08/20 17:28 03/08/20 18:33 Glucose (Fingerstick) 369 mg/dL (70-99) 286 mg/dL (70-99) 217 mg/dL (70-99) 164 mg/dL (70-99) Test 03/08/20 19:47 03/08/20 20:22 03/09/20 07:20 03/09/20 08:35 Glucose (Fingerstick) 92 mg/dL (70-99) 88 mg/dL (70-99) 198 mg/dL (70-99) White Blood Count 8.0 x10^3/uL (4.0-11.0) Red Blood Count 4.89 x10^6/uL (4.30-5.70) Hemoglobin 14.3 g/dL (13.0-17.5) Hematocrit 41.9 % (39.0-53.0) Mean Corpuscular Volume 86 fL (79-100) Mean Corpuscular Hemoglobin 29 pg (25-35) Mean Corpuscular Hemoglobin Concent 34 g/dL (31-37) Red Cell Distribution Width 15.0 % (11.5-14.5) Platelet Count 307 x10^3/uL (140-400) Assessment and Plan Assessmemt and Plan Problems Medical Problems: (1) Colitis Status: Acute (2) Hyperosmolar hyperglycemic state (HHS) Status: Acute (3) Intractable nausea and vomiting Status: Acute Comment Review of Relevant I have reviewed the following items jackie (where applicable) has been applied. Medications: Current Medications Medications (Trade) Dose Ordered Sig/Rock Route PRN Reason Start Time Stop Time Status Last Admin Dose Admin Morphine Sulfate (Morphine Sulfate) 4 mg PRN Q15MIN PRN IV/SQ PAIN GREATER THAN 310 03/08/20 10:30 03/09/20 10:29 03/08/20 12:53 Sodium Chloride 1,000 ml @ 1,000 mls/hr Q1H IV 03/08/20 10:18 03/08/20 11:17 DC 03/08/20 10:31 Ondansetron HCl (Zofran) 4 mg 1X ONCE IVP 03/08/20 10:30 03/08/20 10:31 DC 03/08/20 10:32 Iohexol (Omnipaque 300 Mg/ml) 60 ml 1X ONCE IV 03/08/20 10:45 03/08/20 10:47 DC 03/08/20 11:10 Metoclopramide HCl (Reglan Vial) 10 mg 1X ONCE IVP 03/08/20 13:30 03/08/20 13:31 DC 03/08/20 13:29 Insulin Human Regular 100 ml @ 0 mls/hr 1X ONCE IV 03/08/20 13:45 03/08/20 13:46 DC 03/08/20 14:23 Ceftriaxone Sodium (Rocephin) 1 gm 1X ONCE IVP 03/08/20 13:45 03/08/20 13:46 DC 03/08/20 14:01 Metronidazole 100 ml @ 100 mls/hr 1X ONCE IV 03/08/20 13:45 03/08/20 14:44 DC 03/08/20 14:01 Pantoprazole Sodium (PROTONIX VIAL for IV PUSH) 40 mg DAILY IVP 03/09/20 07:30 03/09/20 08:00 Morphine Sulfate (Morphine Sulfate) 2 mg PRN Q2HR PRN IV PAIN 03/08/20 21:15 03/08/20 21:57 Justifications for Admission Other Justification ISACC FORRESTER MD Mar 09, 2020 09:26
[2020-03-09] MEDS: MORPHINE SULFATE 2 MG/ML VIAL. IV PRN ×4 (09:29→21:33)
[2020-03-09] MEDS ORDERED: NON FORMULARY ITEM (Lisinopril/Hydrochlorothiazide (Lisinopril-Hctz 10-12.5 Mg Tab) 1 TAB) PO SCH (09:30)
[2020-03-09] MEDS ORDERED: DEXTROSE 50% 25 GM / 50ML DISP.SYRIN. IV PRN (09:30)
[2020-03-09] MEDS ORDERED: LIDO:MAALOX 1:1 20 ML SINGLE DOSE. SWSW ONE (10:15)
[2020-03-09] MEDS: CITALOPRAM 20 MG TABLET. PO SCH (10:45)
[2020-03-09] MEDS: hydroCHLOROthiazide 12.5 MG CAPSULE PO SCH (10:45)
[2020-03-09 10:46] VITALS: BP 155/88
[2020-03-09] MEDS: LISINOPRIL 10 MG TABLET PO SCH (10:48)
[2020-03-09] MEDS: INSULIN GLARGINE SYRINGE. SQ SCH ×2 (10:51→21:34)
[2020-03-09] MEDS ORDERED: ONDANSETRON PF 4 MG/2 ML VIAL. IV PRN (12:15)
[2020-03-09] MEDS: INSULIN LISPRO 300 UNITS/3 ML VIAL. SQ SCH ×2 (12:26→16:32)
--- NOTE | 2020-03-09 13:09 | PDOC ---
Date of Service: DATE: 03/09/20 TIME: 13:06 Subjective: Subjective: No diarrhea. Suprapubic pain. Nausea. Objective: Vital Signs: Vital Signs Date Time Temp Pulse Resp B/P (MAP) Pulse Ox O2 Delivery O2 Flow Rate FiO2 03/09/20 12:16 Room Air 03/09/20 10:48 85 155/88 03/09/20 10:46 98.3 19 98 98.3 Labs: Laboratory Tests Test 03/08/20 13:54 03/08/20 15:21 03/08/20 16:27 03/08/20 17:28 Glucose (Fingerstick) 423 mg/dL 369 mg/dL 286 mg/dL 217 mg/dL Test 03/08/20 18:33 03/08/20 19:47 03/08/20 20:22 03/09/20 07:20 Glucose (Fingerstick) 164 mg/dL 92 mg/dL 88 mg/dL 198 mg/dL Test 03/09/20 08:35 03/09/20 11:14 White Blood Count 8.0 x10^3/uL Red Blood Count 4.89 x10^6/uL Hemoglobin 14.3 g/dL Hematocrit 41.9 % Mean Corpuscular Volume 86 fL Mean Corpuscular Hemoglobin 29 pg Mean Corpuscular Hemoglobin Concent 34 g/dL Red Cell Distribution Width 15.0 % Platelet Count 307 x10^3/uL Sodium Level 137 mmol/L Potassium Level 3.8 mmol/L Chloride Level 101 mmol/L Carbon Dioxide Level 25 mmol/L Anion Gap 11 Blood Urea Nitrogen 20 mg/dL Creatinine 1.0 mg/dL Estimated GFR (Cockcroft-Gault) 77.3 BUN/Creatinine Ratio 20 Glucose Level 262 mg/dL Calcium Level 9.4 mg/dL Total Bilirubin 0.7 mg/dL Aspartate Amino Transf (AST/SGOT) 33 U/L Alanine Aminotransferase (ALT/SGPT) 39 U/L Alkaline Phosphatase 95 U/L Total Protein 7.8 g/dL Albumin 3.7 g/dL Albumin/Globulin Ratio 0.9 Glucose (Fingerstick) 251 mg/dL PE: GEN: NAD LUNGS: CTAB HEART: RRR ABD: suprapubic discomfort NEURO/PSYCH: A & O 3 A/P: Recurrent n/v, suprapubic pain DM Abnormal CT - possible colitis, possible cystitis Chronic pain +marijuana -- Previously discussed outpt EGD and colonoscopy, possible GES. Continue same per GI for now. Will return later w/ Dr. Rankin. Justicifation of Admission Dx: Justifications for Admission: Justification of Admission Dx: Yes EVANGELIST VELAZQUEZ Mar 09, 2020 13:09
--- NOTE | 2020-03-09 14:21 | NUR ---
SS following for discharge planning. SS reviewed pt chart and discussed with pt RN. Pt is from home with spouse and is currently on room air. GI consulted. Pt requesting resources for insulin. Resource list provided to pt. SS will continue to follow for discharge planning.
[2020-03-09 14:37] VITALS: BP 149/86
[2020-03-09 19:50] VITALS: BP 150/90
[2020-03-09 22:43] VITALS: BP 118/83
[2020-03-10 02:47] VITALS: BP 133/68
--- NOTE | 2020-03-10 07:42 | PDOC ---
[employer] PROGRESS NOTE Date of Service DOS: DATE: 03/10/20 TIME: 07:42 Chief Complaint Chief Complaint Recurrent n/v, upper abd pain, loose stool every 3-4 days Leukocytosis, uncontrolled DM, elevated total protein DM2 - A1c 9.[address] - possible colitis, possible cystitis CRC screen - reportedly normal ~10 years ago in [place] Diverticulosis S/p cholecystectomy Likely hepatic steatosis Chronic pain on Percocet Marijuana use History of Present Illness History of Present Illness Mr Christianson is a 54 yo M w/ PMHx DM, HTN, HLD admitted with nausea, vomiting, and diarrhea. He has associated epigastric pain. It was all night long, rates it at 09/10, worse with food, better with no food, describes as very irritating. Admitted on insulin GTT for hyperglycemic hyperosmolar state and leukocytosis. 03/09: Afebrile. Still with epigastric pain on taking liquid diet. Glucose better controlled today. No CP or SOB. Afebrile. Has for full diet today and eating well no pain no early satiety had a bowel movement with a lot of relief. He is little disappointed he will not be getting EGD and colonoscopy while inpatient. He wishes for discharge home with self care with his . Vitals/I&O Vitals/I&O: Vital Signs Date Time Temp Pulse Resp B/P (MAP) Pulse Ox O2 Delivery O2 Flow Rate FiO2 03/10/20 02:47 98.0 82 19 133/68 (89) 97 Room Air 98.0 I & O 03/09/20 03/09/20 03/10/20 15:00 23:00 07:00 Intake Total 480 ml 500 ml Output Total 1000 ml Balance 480 ml -500 ml Physical Exam General: Alert, Oriented X3, Cooperative Heart: Regular rate, Normal S1, Normal S2 Lungs: Clear Abdomen: Normal bowel sounds, Soft Extremities: No clubbing, No cyanosis Skin: No rashes, No breakdown Labs Labs: Laboratory Tests Test 03/09/20 08:35 03/09/20 11:14 03/09/20 16:18 03/09/20 20:02 White Blood Count 8.0 x10^3/uL (4.0-11.0) Red Blood Count 4.89 x10^6/uL (4.30-5.70) Hemoglobin 14.3 g/dL (13.0-17.5) Hematocrit 41.9 % (39.0-53.0) Mean Corpuscular Volume 86 fL (79-100) Mean Corpuscular Hemoglobin 29 pg (25-35) Mean Corpuscular Hemoglobin Concent 34 g/dL (31-37) Red Cell Distribution Width 15.0 % (11.5-14.5) Platelet Count 307 x10^3/uL (140-400) Sodium Level 137 mmol/L (136-145) Potassium Level 3.8 mmol/L (3.5-5.1) Chloride Level 101 mmol/L (98-107) Carbon Dioxide Level 25 mmol/L (21-32) Anion Gap 11 (6-14) Blood Urea Nitrogen 20 mg/dL (8-26) Creatinine 1.0 mg/dL (0.7-1.3) Estimated GFR (Cockcroft-Gault) 77.3 BUN/Creatinine Ratio 20 (6-20) Glucose Level 262 mg/dL (70-99) Calcium Level 9.4 mg/dL (8.5-10.1) Total Bilirubin 0.7 mg/dL (0.2-1.0) Aspartate Amino Transf (AST/SGOT) 33 U/L (15-37) Alanine Aminotransferase (ALT/SGPT) 39 U/L (16-63) Alkaline Phosphatase 95 U/L (46-116) Total Protein 7.8 g/dL (6.4-8.2) Albumin 3.7 g/dL (3.4-5.0) Albumin/Globulin Ratio 0.9 (1.0-1.7) Glucose (Fingerstick) 251 mg/dL (70-99) 130 mg/dL (70-99) 129 mg/dL (70-99) Test 03/09/20 21:14 Glucose (Fingerstick) 147 mg/dL (70-99) Assessment and Plan Assessmemt and Plan Problems Medical Problems: (1) Colitis Status: Acute (2) Hyperosmolar hyperglycemic state (HHS) Status: Acute (3) Intractable nausea and vomiting Status: Acute Comment Review of Relevant I have reviewed the following items jackie (where applicable) has been applied. Medications: Current Medications Medications (Trade) Dose Ordered Sig/Rock Route PRN Reason Start Time Stop Time Status Last Admin Dose Admin Citalopram Hydrobromide (CeleXA) 20 mg DAILY PO 03/09/20 10:30 03/09/20 10:45 Insulin Glargine (Lantus Syringe) 15 unit BID SQ 03/09/20 10:30 03/09/20 21:34 Insulin Human Lispro (HumaLOG) 0-9 UNITS TIDWMEALS SQ 03/09/20 12:00 03/09/20 12:26 Lisinopril (Prinivil) 10 mg DAILY PO 03/09/20 10:30 03/09/20 10:48 Hydrochlorothiazide (Microzide) 12.5 mg DAILY PO 03/09/20 10:30 03/09/20 10:45 Multi-Ingredient Mouthwash/Gargle (Gi Cocktail) 20 ml 1X ONCE SWSW 03/09/20 10:15 03/09/20 10:16 DC 03/09/20 10:48 Ondansetron HCl (Zofran) 4 mg PRN Q4HRS PRN IV NAUSEA/VOMITING 03/09/20 12:15 03/09/20 12:17 Justifications for Admission Other Justification ISACC FORRESTER MD Mar 10, 2020 07:42
[2020-03-10] MEDS ORDERED: METOCLOPRAMIDE HCL 10 MG/2 ML VIAL. IVP PRN (07:45)
[2020-03-10 07:56] VITALS: BP 136/87
[2020-03-10] MEDS: INSULIN LISPRO 300 UNITS/3 ML VIAL. SQ SCH ×2 (08:00→12:42)
[2020-03-10] MEDS: PANTOPRAZOLE IV PUSH 40 MG VIAL. IVP SCH (08:40)
[2020-03-10] MEDS: hydroCHLOROthiazide 12.5 MG CAPSULE PO SCH (09:40)
[2020-03-10] MEDS: CITALOPRAM 20 MG TABLET. PO SCH (09:40)
[2020-03-10] MEDS: LISINOPRIL 10 MG TABLET PO SCH (09:41)
[2020-03-10] MEDS: INSULIN GLARGINE SYRINGE. SQ SCH (09:44)
--- NOTE | 2020-03-10 09:57 | PDOC ---
Date of Service: DATE: 03/10/20 TIME: 09:55 Subjective: Subjective: No pain. Ate regular food for breakfast. Had a stool - says no specimen collected. 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 Note has IV Reglan ordered. Vital Signs: Vital Signs Date Time Temp Pulse Resp B/P (MAP) Pulse Ox O2 Delivery O2 Flow Rate FiO2 03/10/20 09:41 100 136/87 03/10/20 07:56 98.1 19 99 Room Air 98.1 Labs: Laboratory Tests Test 03/09/20 11:14 03/09/20 16:18 03/09/20 20:02 03/09/20 21:14 Glucose (Fingerstick) 251 mg/dL (70-99) 130 mg/dL (70-99) 129 mg/dL (70-99) 147 mg/dL (70-99) Test 03/10/20 08:26 Glucose (Fingerstick) 192 mg/dL (70-99) PE: GEN: NAD LUNGS: CTAB HEART: RRR ABD: NABS, S/ND/NT NEURO/PSYCH: A & O 3 A/P: Recurrent n/v, suprapubic pain - resolved DM Abnormal CT - possible colitis, possible cystitis Chronic pain, +marijuana -- Outpt scopes when able to prep. Dc per primary. Justicifation of Admission Dx: Justifications for Admission: Justification of Admission Dx: Yes EVANGELIST VELAZQUEZ Mar 10, 2020 09:57
[2020-03-10 10:12] VITALS: BP 161/98
[2020-03-10] MEDS ORDERED: PANT40TA77 PO (11:04)
--- NOTE | 2020-03-10 11:09 | PDOC3 ---
Discharge Summary Visit Information Date of Admission: Mar 08, 2020 Date of Discharge: Mar 10, 2020 Admitting Diagnosis: Intractable nausea and vomiting Final Diagnosis Problems Medical Problems: (1) Colitis Status: Acute (2) Hyperosmolar hyperglycemic state (HHS) Status: Acute (3) Intractable nausea and vomiting Status: Acute Brief Hospital Course Allergies Allergies Coded Allergies Type Severity Reaction Last Updated Verified No Known Drug Allergies 02/28/20 No Vital Signs Vital Signs Date Time Temp Pulse Resp B/P (MAP) Pulse Ox O2 Delivery O2 Flow Rate FiO2 03/10/20 10:12 98.2 101 19 161/98 (119) 98 Room Air 98.2 Lab Results Laboratory Tests Test 03/08/20 11:10 03/08/20 13:54 03/08/20 15:21 03/08/20 16:27 Urine Collection Type Unknown Urine Color Yellow Urine Clarity Clear Urine pH 6.0 (<5.0-8.0) Urine Specific [place] >=1.030 (1.000-1.030) Urine Protein 100 mg/dL (NEG-TRACE) Urine Glucose (UA) >=1000 mg/dL (NEG) Urine Ketones (Stick) 40 mg/dL (NEG) Urine Blood Negative (NEG) Urine Nitrite Negative (NEG) Urine Bilirubin Negative (NEG) Urine Urobilinogen Dipstick 0.2 mg/dL (0.2 mg/dL) Urine Leukocyte Esterase Negative (NEG) Urine RBC Rare /HPF (0-2) Urine WBC Rare /HPF (0-4) Urine Squamous Epithelial Cells Few /LPF Urine Bacteria 0 /HPF (0-FEW) Urine Opiates Screen Pos (NEG) Urine Methadone Screen Neg (NEG) Urine Barbiturates Neg (NEG) Urine Phencyclidine Screen Neg (NEG) Urine Amphetamine/Methamphetamine Neg (NEG) Urine Benzodiazepines Screen Neg (NEG) Urine Cocaine Screen Neg (NEG) Urine Cannabinoids Screen Pos (NEG) Urine Ethyl Alcohol Neg (NEG) Glucose (Fingerstick) 423 mg/dL (70-99) 369 mg/dL (70-99) 286 mg/dL (70-99) Test 03/08/20 17:28 03/08/20 18:33 03/08/20 19:47 03/08/20 20:22 Glucose (Fingerstick) 217 mg/dL (70-99) 164 mg/dL (70-99) 92 mg/dL (70-99) 88 mg/dL (70-99) Test 03/09/20 07:20 03/09/20 08:35 03/09/20 11:14 03/09/20 16:18 Glucose (Fingerstick) 198 mg/dL (70-99) 251 mg/dL (70-99) 130 mg/dL (70-99) White Blood Count 8.0 x10^3/uL (4.0-11.0) Red Blood Count 4.89 x10^6/uL (4.30-5.70) Hemoglobin 14.3 g/dL (13.0-17.5) Hematocrit 41.9 % (39.0-53.0) Mean Corpuscular Volume 86 fL (79-100) Mean Corpuscular Hemoglobin 29 pg (25-35) Mean Corpuscular Hemoglobin Concent 34 g/dL (31-37) Red Cell Distribution Width 15.0 % (11.5-14.5) Platelet Count 307 x10^3/uL (140-400) Sodium Level 137 mmol/L (136-145) Potassium Level 3.8 mmol/L (3.5-5.1) Chloride Level 101 mmol/L (98-107) Carbon Dioxide Level 25 mmol/L (21-32) Anion Gap 11 (6-14) Blood Urea Nitrogen 20 mg/dL (8-26) Creatinine 1.0 mg/dL (0.7-1.3) Estimated GFR (Cockcroft-Gault) 77.3 BUN/Creatinine Ratio 20 (6-20) Glucose Level 262 mg/dL (70-99) Calcium Level 9.4 mg/dL (8.5-10.1) Total Bilirubin 0.7 mg/dL (0.2-1.0) Aspartate Amino Transf (AST/SGOT) 33 U/L (15-37) Alanine Aminotransferase (ALT/SGPT) 39 U/L (16-63) Alkaline Phosphatase 95 U/L (46-116) Total Protein 7.8 g/dL (6.4-8.2) Albumin 3.7 g/dL (3.4-5.0) Albumin/Globulin Ratio 0.9 (1.0-1.7) Test 03/09/20 20:02 03/09/20 21:14 03/10/20 08:26 Glucose (Fingerstick) 129 mg/dL (70-99) 147 mg/dL (70-99) 192 mg/dL (70-99) Laboratory Tests Test 03/09/20 11:14 03/09/20 16:18 03/09/20 20:02 03/09/20 21:14 Glucose (Fingerstick) 251 mg/dL (70-99) 130 mg/dL (70-99) 129 mg/dL (70-99) 147 mg/dL (70-99) Test 03/10/20 08:26 Glucose (Fingerstick) 192 mg/dL (70-99) Brief Hospital Course Mr Christianson is a 54 yo M w/ PMHx DM, HTN, HLD admitted with nausea, vomiting, and diarrhea. He has associated epigastric pain. It was all night long, rates it at 09/10, worse with food, better with no food, describes as very irritating. Admitted on insulin GTT for hyperglycemic hyperosmolar state and leukocytosis. 03/09: Afebrile. Still with epigastric pain on taking liquid diet. Glucose better controlled today. No CP or SOB. Afebrile. Has for full diet today and eating well no pain no early satiety had a bowel movement with a lot of relief. He is little disappointed he will not be getting EGD and colonoscopy while inpatient. He wishes for discharge home with self care with his . Consults; GI Problem list: Recurrent n/v, upper abd pain, loose stool every 3-4 days Leukocytosis, uncontrolled DM, elevated total protein DM2 - A1c 9.[address] - possible colitis, possible cystitis CRC screen - reportedly normal ~10 years ago in [place] Diverticulosis S/p cholecystectomy Likely hepatic steatosis Chronic pain on Percocet Marijuana use Greater than 30 minutes spent on d/c home with self care Discharge Information Condition at Discharge: Improved Follow Up: Weeks (1) Disposition/Orders: D/C to Home Scheduled Citalopram Hydrobromide (Celexa) 20 Mg Tablet, 20 MG PO DAILY for depression, (Reported) Entered as Reported by: Inocencio Chacon on 03/09/20 0506 Last Taken: UNKNOWN on Unknown Date & Time Last Action: Continued on 03/09/20 0924 by ISACC FORRESTER MD Insulin NPH Human Isophane (Novolin N Flexpen) 100 Unit/1 Ml Insuln.pen, 15 UNIT SQ BID, #100 Prescribed by: JAIME CARDONA MD on 02/28/20 1317 Last Action: Converted on 03/09/20923 by ISACC FORRESTER MD Insulin Regular, Human (Novolin R) 100 Unit/1 Ml Vial, 7 UNIT IJ TID, #100 Prescribed by: JAIME CARDONA MD on 02/28/20 1317 Lisinopril/Hydrochlorothiazide (Lisinopril-Hctz 10-12.5 Mg Tab) 1 Each Tablet, 1 TAB PO DAILY for htn, #90 Ref 3 (Reported) Entered as Reported by: Inocencio Chacon on 03/09/20 0506 Last Taken: UNKNOWN on Unknown Date & Time Last Action: Converted on 03/09/20923 by ISACC FORRESTER MD Pantoprazole Sodium (Protonix ) 40 Mg Tablet.dr, 40 MG PO DAILYAC for GERD for 30 Days, #30 Prescribed by: ISACC FORRESTER MD on 03/10/20 1104 Justicifation of Admission Dx: Justifications for Admission: Justification of Admission Dx: Yes ISACC FORRESTER MD Mar 10, 2020 11:09
--- NOTE | 2020-03-10 12:19 | NUR ---
SS following up with discharge planning. SS reviewed pt chart and discussed with pt RN. Pt is currently on room air. Discharge order on the chart for home with self care.
[2020-03-10 14:00] VITALS: BP 141/88
--- NOTE | 2020-03-10 15:41 | NUR ---
Discharge Note: YANY JEFFREY Discharge instructions and discharge home medications reviewed with Patient and a copy given. All questions have been answered and understanding verbalized. The following instructions and handouts were given: Hyperglycemia Discontinued lines and drains: Peripheral IV intact. Patient discharged to Home or Self Care with Family Member via Wheelchair
== END 2020-03-10 14:40 | disposition home or self-care (01) | DRG 391 ==
LOC: ER 09:50 → ED HOLD 14:28 → 2 NORTH 17:50
PROVIDERS: ADMIT Internal Medicine; ATTEND Internal Medicine
DX: K52.9 Noninfective gastroenteritis and colitis, unspecified (principal); E11.00 Type 2 diabetes mellitus with hyperosmolarity without nonketotic hyperglycemic-hyperosmolar coma (NKHHC); E87.1 Hypo-osmolality and hyponatremia; B95.8 Unspecified staphylococcus as the cause of diseases classified elsewhere; E78.5 Hyperlipidemia, unspecified; F12.90 Cannabis use, unspecified, uncomplicated; F17.200 Nicotine dependence, unspecified, uncomplicated; G89.29 Other chronic pain; I10 Essential (primary) hypertension; K31.84 Gastroparesis; K57.30 Diverticulosis of large intestine without perforation or abscess without bleeding; K76.0 Fatty (change of) liver, not elsewhere classified; N20.0 Calculus of kidney; N28.1 Cyst of kidney, acquired; Z79.4 Long term (current) use of insulin; Z79.891 Long term (current) use of opiate analgesic; Z80.9 Family history of malignant neoplasm, unspecified; Z83.3 Family history of diabetes mellitus; Z87.442 Personal history of urinary calculi; Z90.49 Acquired absence of other specified parts of digestive tract; Z91.19 Patient's noncompliance with other medical treatment and regimen; E11.43 Type 2 diabetes mellitus with diabetic autonomic (poly)neuropathy
CPT/HCPCS: 36415; 74177; 80053; 80307; 81001; 82010; 82962; 83036; 83690; 83735; 85025; 85027; 87493; 87505; 96361; 96365; 96368; 96375; C9113; J0696; J1815; J2270; J2405; J2765; J3490; J7030; Q9967; 99285-25; G0378

== ENCOUNTER 2020-09-16 13:45 | Observation (INO) | payer BC ==
[~2020-09-16] VITALS: Ht 172.7 cm; Wt 85.1 kg
[~2020-09-16 13:45] MED LIST changes: +ASPI325T8 PO; +ATOR20TA58 PO; +CITA20TA9 PO; +GABA300C18 PO; +HYDR12.575 PO; +LISI1TAB23 PO; +OXYC-317 PO; +PANT40TA77 PO
--- NOTE | 2020-09-16 14:51 | PHYS DOC ---
Past Medical History Past Medical History: CVA, Diabetes-Type I, Hypertension, Kidney Stone Additional Past Medical Histor: STAPH INFECTION ON LEFT LEG W/ SX, CVA with L side weakness Past Surgical History: Appendectomy, Cholecystectomy Additional Past Surgical Histo: ROTATOR CUFF SX Smoking Status: Former Smoker Alcohol Use: None Adult General Chief Complaint Chief Complaint: EYE PROBLEMS HPI HPI Patient is a 54 year old male with a past medical history of hypertension diabetes now presents emergency department complaining of new onset of right- sided eye pain and vision changes. Of note patient was admitted to the hospital service after receiving TPA for CVA on September 10. Patient states that he was admitted and underwent neurology evaluation underwent physical therapy and reports from hospital stay that the patient returned to baseline. Patient returns stating that he has had worsening irritation of the right eye over the last 2 days and notes difficulty closing the right eyelid. Denies any fever, chills. Does note he has been having worsening headache since that time Review of Systems Review of Systems Constitutional: Denies fever or chills [] Eyes: Denies change in visual acuity, redness, or eye pain [] HENT: Denies nasal congestion or sore throat [] Respiratory: Denies cough or shortness of breath [] Cardiovascular: No additional information not addressed in HPI [] GI: Denies abdominal pain, nausea, vomiting, bloody stools or diarrhea [] : Denies dysuria or hematuria [] Musculoskeletal: Denies back pain or joint pain [] Integument: Denies rash or skin lesions [] Neurologic: Denies headache, focal weakness or sensory changes [] Endocrine: Denies polyuria or polydipsia [] All other systems were reviewed and found to be within normal limits, except as documented in this note. Current Medications Current Medications Current Medications Medications (Trade) Dose Ordered Sig/Rock Start Time Stop Time Status Last Admin Dose Admin Acetaminophen (Tylenol) 1,000 mg 1X ONCE 09/16/20 15:30 09/16/20 15:31 DC 09/16/20 15:29 1,000 MG Acyclovir (Zovirax) 400 mg 5XDAY 09/16/20 16:00 09/16/20 16:02 DC 09/16/20 16:25 400 MG Morphine Sulfate (Morphine Sulfate) 2 mg PRN Q2HR PRN 09/16/20 15:45 09/17/20 15:44 DC 09/17/20 05:02 2 MG Multi-Ingred Cream/Lotion/Oil/ Oint (Artificial Tears Eye Ointment) 1 nikolai 1X ONCE 09/16/20 16:15 09/16/20 16:16 DC 09/16/20 16:25 1 NIKOLAI Ondansetron HCl (Zofran) 4 mg PRN Q8HRS PRN 09/16/20 15:45 09/17/20 15:44 DC Prednisone (Prednisone) 20 mg STK-MED ONCE 09/16/20 15:26 09/16/20 15:26 DC Allergies Allergies Allergies Coded Allergies Type Severity Reaction Last Updated Verified No Known Drug Allergies 02/28/20 No Physical Exam Physical Exam Constitutional: Well developed, well nourished, no acute distress, non-toxic appearance. [] HENT: Normocephalic, atraumatic, bilateral external ears normal, oropharynx moist, no oral exudates, nose normal. [] Eyes: PERRLA, EOMI, conjunctiva normal, no discharge. [] Neck: Normal range of motion, no tenderness, supple, no stridor. [] Cardiovascular:Heart rate regular rhythm, no murmur [] Lungs & Thorax: Bilateral breath sounds clear to auscultation [] Abdomen: Bowel sounds normal, soft, no tenderness, no masses, no pulsatile mass es. [] Skin: Warm, dry, no erythema, no rash. [] Back: No tenderness, no CVA tenderness. [] Extremities: No tenderness, no cyanosis, no clubbing, ROM intact, no edema. [] Neurologic: Alert and oriented X 3, almost complete paralysis of the entire right face including the forehead, normal sensory function, no focal deficits noted. [] Psychologic: Affect normal, judgement normal, mood normal. [] Current Patient Data Vital Signs Vital Signs Date Time Temp Pulse Resp B/P (MAP) Pulse Ox O2 Delivery O2 Flow Rate FiO2 09/16/20 16:28 16 98 Room Air 09/16/20 16:23 90 136/84 (101) 09/16/20 13:50 98.0 98.0 Lab Values Laboratory Tests Test 09/16/20 14:41 09/16/20 14:44 Glucose (Fingerstick) 321 mg/dL (70-99) H White Blood Count 7.8 x10^3/uL (4.0-11.0) Red Blood Count 5.13 x10^6/uL (4.30-5.70) Hemoglobin 14.9 g/dL (13.0-17.5) Hematocrit 43.4 % (39.0-53.0) Mean Corpuscular Volume 85 fL (79-100) Mean Corpuscular Hemoglobin 29 pg (25-35) Mean Corpuscular Hemoglobin Concent 34 g/dL (31-37) Red Cell Distribution Width 13.5 % (11.5-14.5) Platelet Count 277 x10^3/uL (140-400) Neutrophils (%) (Auto) 58 % (31-73) Lymphocytes (%) (Auto) 32 % (24-48) Monocytes (%) (Auto) 6 % (0-9) Eosinophils (%) (Auto) 3 % (0-3) Basophils (%) (Auto) 1 % (0-3) Neutrophils # (Auto) 4.5 x10^3/uL (1.8-7.7) Lymphocytes # (Auto) 2.5 x10^3/uL (1.0-4.8) Monocytes # (Auto) 0.5 x10^3/uL (0.0-1.1) Eosinophils # (Auto) 0.2 x10^3/uL (0.0-0.7) Basophils # (Auto) 0.1 x10^3/uL (0.0-0.2) Prothrombin Time 12.1 SEC (11.7-14.0) Prothrombin Time INR 0.9 (0.8-1.1) Activated Partial Thromboplast Time 30 SEC (24-38) Sodium Level 138 mmol/L (136-145) Potassium Level 4.4 mmol/L (3.5-5.1) Chloride Level 102 mmol/L (98-107) Carbon Dioxide Level 22 mmol/L (21-32) Anion Gap 14 (6-14) Blood Urea Nitrogen 18 mg/dL (8-26) Creatinine 1.1 mg/dL (0.7-1.3) Estimated GFR (Cockcroft-Gault) 69.2 Glucose Level 323 mg/dL (70-99) H Calcium Level 9.1 mg/dL (8.5-10.1) Troponin I Quantitative < 0.017 ng/mL (0.000-0.055) Laboratory Tests 09/16/20 14:44 Laboratory Tests 09/16/20 14:44 EKG EKG [] Radiology/Procedures Radiology/Procedures [] Course & Med Decision Making Course & Med Decision Making Pertinent Labs and Imaging studies reviewed. (See chart for details) [] Dragon Disclaimer Dragon Disclaimer This electronic medical record was generated, in whole or in part, using a voice recognition dictation system. Departure Departure Referrals: SEFERINO MENJIVAR MD (PCP) Attending Signature Attending Signature I have participated in the care of this patient and I have reviewed and agree with all pertinent clinical information above including history, exam, and recommendations. JUANJOSE WISDOM MD Sep 16, 2020 14:51
[2020-09-16 14:52] LABS: BASO # 0.1 x10^3/uL (0.0-0.2); BASO % 1 % (0-3); EOS # 0.2 x10^3/uL (0.0-0.7); EOS % 3 % (0-3); HEMATOCRIT 43.4 % (39.0-53.0); HEMOGLOBIN 14.9 g/dL (13.0-17.5); LYMPH # 2.5 x10^3/uL (1.0-4.8); LYMPH % 32 % (24-48); MEAN CORPUSCULAR HEMOGLOBIN 29 pg (25-35); MEAN CORPUSCULAR HGB CONC 34 g/dL (31-37); MEAN CORPUSCULAR VOLUME 85 fL (79-100); MONO # 0.5 x10^3/uL (0.0-1.1); MONO % 6 % (0-9); NEUT # 4.5 x10^3/uL (1.8-7.7); NEUT % 58 % (31-73); PLATELET COUNT 277 x10^3/uL (140-400); RED BLOOD COUNT 5.13 x10^6/uL (4.30-5.70); RED CELL DISTRIBUTION WIDTH 13.5 % (11.5-14.5); WHITE BLOOD COUNT 7.8 x10^3/uL (4.0-11.0)
--- NOTE | 2020-09-16 14:56 | EKG ---
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
[2020-09-16 15:01] LABS: CALCIUM 9.1 mg/dL (8.5-10.1); CREATININE 1.1 mg/dL (0.7-1.3); GFR 69.2; POTASSIUM 4.4 mmol/L (3.5-5.1)
[2020-09-16 15:05] LABS: PROTHROMBIN TIME PATIENT 12.1 SEC (11.7-14.0)
--- NOTE | 2020-09-16 15:20 | RAD ---
EXAM: Head CT without contrast. HISTORY: Stroke. TECHNIQUE: Computed tomographic images of the head were obtained without contrast. *One or more of the following individualized dose reduction techniques were utilized for this examina tion: 1. Automated exposure control. 2. Adjustment of the mA and/or kV according to patient size. 3. Use of iterative reconstruction technique. COMPARISON: MRI dated 09/11/2020. FINDINGS: There is no acute or subacute extra-axial or intraparenchymal hemorrhage. There is no mass effect or midline shift. There is no hydrocephalus. There are areas of decreased attenuation within the cerebral white matter, nonspecific and likely rel ated to chronic small vessel disease. There are focal areas of hypodensity due to chronic infarction within the left thalamus and brachium pontis and superior right cerebellum. The visualized portions of the orbits, paranasal sinuses and mastoid air cells are unremarkable. No s uspicious calvarial lesion is seen. IMPRESSION: 1. No acute intracranial finding. Note is made that MRI is more sensitive for acute infarction. 2. Bilateral cerebral white matter changes, likely due to chronic small vessel disease. There are sup erimposed small chronic infarcts within the left thalamus, brachium pontis and superior right cerebel lum. Findings were discussed with Dr. Thompson in the ED at 1550 hours on 09/16/2020. Electronically signed by: Kathleen Hooper MD (09/16/2020 3:18 PM) [id number]
[2020-09-16] MEDS ORDERED: predniSONE 20 MG TABLET ONE (15:26)
[2020-09-16] MEDS ORDERED: MORPHINE SULFATE 4 MG/ML VIAL. IV ONE (15:30)
[2020-09-16] MEDS ORDERED: ACETAMINOPHEN 500 MG TABLET PO ONE (15:30)
[2020-09-16] MEDS ORDERED: predniSONE 20 MG TABLET PO ONE (15:45)
[2020-09-16] MEDS ORDERED: ONDANSETRON PF 4 MG/2 ML VIAL. IV PRN (15:45)
[2020-09-16] MEDS ORDERED: ACYCLOVIR 200 MG CAPSULE. PO SCH (16:00)
[2020-09-16] MEDS ORDERED: MINERAL OIL/PETROLATUM,WHITE OPHTH OINT 3.5GM TUBE. OU ONE (16:15)
--- NOTE | 2020-09-16 16:58 | HP ---
ADMIT DATE: 09/16/2020 CHIEF COMPLAINT: Right facial droop. HISTORY OF PRESENT ILLNESS: The patient is a pleasant middle-aged male who has had 2 or 3 previous strokes. We just discharged one week ago after he received TPA and underwent physical therapy, occupational therapy and speech therapy. At that time, we did have Neurology and Cardiology see him. It was felt that he probably had a new small stroke. Over the past 3 days, the patient states his symptoms returned. He has been having facial drooping. The right eye has turned red, the right side of his face is also hypersensitive to pain. Clinically, it seems like he may have developed a Cheng's palsy. I discussed the case with ER physician. We are going to admit the patient to get a second opinion from Dr. Johnson. PAST MEDICAL HISTORY: Stroke x 2, perhaps 3; hyperlipidemia, polypharmacy, hypertension, chronic pain, neuropathy, depression, anxiety, GERD, diabetes. PAST SURGICAL HISTORY: None. FAMILY HISTORY: Diabetes hypertension. SOCIAL HISTORY: He does not drink, smoke or take drugs. ALLERGIES: None. MEDICATIONS: We sent the patient home on aspirin, atorvastatin, hydrochlorothiazide, Celexa, gabapentin, insulin, lisinopril/hydrochlorothiazide, oxycodone and Protonix. REVIEW OF SYSTEMS: GENERAL: No history of weight change, weakness or fevers. SKIN: No bruising, hair changes or rashes. EYES: He complains of right eye redness. NOSE AND THROAT: No history of nosebleeds, hoarseness or sore throat. HEART: No history of palpitations, chest pain or shortness of breath on exertion. LUNGS: Denies cough, hemoptysis, wheezing or shortness of breath. GASTROINTESTINAL: Denies changes in appetite, nausea, vomiting, diarrhea or constipation. GENITOURINARY: No history of frequency, urgency, hesitancy or nocturia. NEUROLOGIC: He complains of right facial droop and right face burning. PSYCHIATRIC: No history of panic, anxiety or depression. ENDOCRINE: No history of heat or cold intolerance, polyuria or polydipsia. EXTREMITIES: Denies muscle weakness, joint pain, pain on walking or stiffness. . PHYSICAL EXAMINATION: VITALS: Within normal limits and are stable. GENERAL: No apparent distress. Alert and oriented. HEENT: Normal cephalic atraumatic, external auditory canals are patent. EYES: The right eye is red. MUSCULOSKELETAL: Well developed, well nourished, good range of motion. ENDOCRINE: No thyromegaly was palpated. LYMPHATICS: No cervical chain or axillary nodes were noted. HEMATOPOIETIC: No bruising. NECK: Supple, no JVD, no thyromegaly was noted. LUNGS: Clear to auscultation in all lung [place] without rhonchi or wheezing. HEART: RRR, S1, S2 present. Peripheral pulses intact, no obvious murmurs were noted. ABDOMEN: Soft, nontender. Positive bowel sounds no organomegaly, normal bowel sounds. EXTREMITIES: Without any cyanosis, clubbing, or edema. Pedal pulses intact, Homans sign is negative. NEUROLOGIC: The right face is drooping. He is not able to wrinkle his forehead. PSYCHIATRIC: Normal affect, normal mood. Stable. SKIN: No ulcerations or rashes, good skin turgor, no jaundice. VASCULAR: Good capillary refill, neurovascular bundle appears to be intact. IMAGING: CT of the head shows no acute changes. He does have bilateral cerebral white matter changes, likely due to chronic small vessel disease. Hematology is normal. Electrolytes are normal. Glucose is high at 323. INR is 0.9. ASSESSMENT AND PLAN: New stroke symptoms, although this might be Cheng's palsy. We are going to consult Dr. Araya. Home medications. Deep venous thrombosis prophylaxis. Full code. I will start empiric acyclovir 800 q.i.d. and Medrol Dosepak. YAYO DR: Albertina TID: [id number]
[2020-09-16] MEDS ORDERED: INSULIN REGULAR 100 UNIT/ML 3ML VIAL. SQ ONE (18:00)
[2020-09-16] MEDS: MORPHINE SULFATE 2 MG/ML VIAL. IV PRN ×3 (18:04→23:04)
[2020-09-16] MEDS: INSULIN LISPRO 300 UNITS/3 ML VIAL. SQ SCH (20:00)
[2020-09-16] MEDS: ACYCLOVIR 200 MG CAPSULE. PO SCH ×2 (21:25→22:00)
[2020-09-16] MEDS: GABAPENTIN 300 MG CAPSULE. PO SCH (21:25)
[2020-09-16] MEDS: ATORVASTATIN CALCIUM 20 MG TABLET PO SCH (21:25)
[2020-09-16] MEDS: oxyCODONE/APAP 10/325 1 TAB TABLET PO PRN (21:25)
[2020-09-16] MEDS: INSULIN GLARGINE SYRINGE. SQ SCH (21:29)
[2020-09-16 21:34] VITALS: BP 150/82
[2020-09-16 23:05] VITALS: BP 145/90
[2020-09-17] MEDS: MORPHINE SULFATE 2 MG/ML VIAL. IV PRN ×2 (03:01→05:02)
[2020-09-17 03:05] VITALS: BP 139/77
[2020-09-17] MEDS: ACYCLOVIR 200 MG CAPSULE. PO SCH ×5 (05:02→21:34)
[2020-09-17] MEDS: oxyCODONE/APAP 10/325 1 TAB TABLET PO PRN ×4 (06:23→19:25)
[2020-09-17 07:30] VITALS: BP 147/81
[2020-09-17 08:19] LABS: BASO % 0 % (0-3); EOS % 0 % (0-3); HEMATOCRIT 41.2 % (39.0-53.0); HEMOGLOBIN 13.7 g/dL (13.0-17.5); LYMPH # 1.5 x10^3/uL (1.0-4.8); LYMPH % 12 % (24-48); MEAN CORPUSCULAR HEMOGLOBIN 28 pg (25-35); MEAN CORPUSCULAR HGB CONC 33 g/dL (31-37); MEAN CORPUSCULAR VOLUME 85 fL (79-100); MONO # 0.4 x10^3/uL (0.0-1.1); MONO % 3 % (0-9); NEUT # 11.3 x10^3/uL (1.8-7.7); NEUT % 85 % (31-73); PLATELET COUNT 280 x10^3/uL (140-400); RED BLOOD COUNT 4.84 x10^6/uL (4.30-5.70); RED CELL DISTRIBUTION WIDTH 13.3 % (11.5-14.5); WHITE BLOOD COUNT 13.3 x10^3/uL (4.0-11.0)
[2020-09-17 08:31] LABS: CALCIUM 8.9 mg/dL (8.5-10.1); CREATININE 1.2 mg/dL (0.7-1.3); GFR 62.6; POTASSIUM 4.7 mmol/L (3.5-5.1)
[2020-09-17] MEDS: hydroCHLOROthiazide 12.5 MG CAPSULE PO SCH (08:46)
[2020-09-17] MEDS: ASPIRIN 325 MG TABLET PO SCH (08:47)
[2020-09-17] MEDS: LISINOPRIL 10 MG TABLET PO SCH (08:47)
[2020-09-17] MEDS: CITALOPRAM 20 MG TABLET. PO SCH (08:47)
[2020-09-17] MEDS: PANTOPRAZOLE 40 MG TABLET.DR. PO SCH (08:47)
[2020-09-17] MEDS: GABAPENTIN 300 MG CAPSULE. PO SCH ×3 (08:47→21:32)
[2020-09-17] MEDS ORDERED: LISINOPRIL 10 MG TABLET ONE (09:00)
[2020-09-17] MEDS ORDERED: hydroCHLOROthiazide 12.5 MG CAPSULE PO SCH (09:00)
[2020-09-17] MEDS ORDERED: predniSONE 10 MG TABLET PO SCH (09:00)
[2020-09-17] MEDS: INSULIN LISPRO 300 UNITS/3 ML VIAL. SQ SCH ×3 (09:28→18:22)
[2020-09-17] MEDS: INSULIN GLARGINE SYRINGE. SQ SCH ×2 (09:33→21:37)
[2020-09-17 10:55] VITALS: BP 137/85
--- NOTE | 2020-09-17 13:09 | PDOC2 ---
NEUROLOGY CONSULT Date of Service DOS: DATE: 09/17/20 TIME: 13:00 Reason for Consult Reason for Consult: Right facial weakness Referring Physician Referring Physician: Dr. Reyes Source Source: Chart review, Patient History of Present Illness History of Present Illness The patient is a 54-year-old right-handed male who is here with sudden onset of right-sided weakness. He received alteplase. He has had strokes and transient ischemic attacks in the past. He has residual left hemiparesis from the prior strokes. MRI of the brain, echocardiogram, CT angiograms, and evaluation of his previously placed loop recorder were all negative. I was not sure he even had a new stroke, but most likely it was lacunar. He went home and then the next day, approximately 09/13, noticed acute onset of right facial weakness and right face pain. He denies any change in hearing or taste. He came to the emergency room yesterday. I discussed the case with Dr. 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 Patient did receive 60 mg of prednisone yesterday and 30 mg today. He cannot close his right eye. He does have a patch on it. His pain is not changed. Past Medical History Cardiovascular: HTN CENTRAL NERVOUS SYSTEM: Periperal neuropathy, TIA GI: Other (Colitis) Endocrine: Diabetes Past Surgical History Past Surgical History: Appendectomy, Cholecystectomy, Other (Right rotator cuff, left leg abscess) Family History Family History: CVA Social History Social History , disabled, ex-smoker, rare alcohol Current Medications Current Medications Current Medications Acetaminophen (Tylenol) 1,000 mg 1X ONCE PO Last administered on 09/16/20at 15:29; Start 09/16/20 at 15:30; Stop 09/16/20 at 15:31; Status DC Morphine Sulfate (Morphine Sulfate) 4 mg 1X ONCE IV Last administered on 09/16/20at 15:30; Start 09/16/20 at 15:30; Stop 09/16/20 at 15:31; Status DC Prednisone (Prednisone) 60 mg 1X ONCE PO Last administered on 09/16/20at 15:29; Start 09/16/20 at 15:45; Stop 09/16/20 at 15:46; Status DC Acyclovir (Zovirax) 400 mg 5XDAY PO Last administered on 09/16/20at 16:25; Start 09/16/20 at 16:00; Stop 09/16/20 at 16:02; Status DC Prednisone (Prednisone) 20 mg STK-MED ONCE .ROUTE ; Start 09/16/20 at 15:26; Stop 09/16/20 at 15:26; Status DC Ondansetron HCl (Zofran) 4 mg PRN Q8HRS PRN IV NAUSEA/VOMITING; Start 09/16/20 at 15:45; Stop 09/17/20 at 15:44 Morphine Sulfate (Morphine Sulfate) 2 mg PRN Q2HR PRN IV PAIN Last administered on 09/17/20at 05:02; Start 09/16/20 at 15:45; Stop 09/17/20 at 15:44 Acyclovir (Zovirax) 800 mg 5XDAY PO Last administered on 09/17/20at 08:48; Start 09/16/20 at 18:00 Prednisone (Prednisone) 30 mg DAILY PO Last administered on 09/17/20at 08:47; Start 09/17/20 at 09:00; Stop 09/17/20 at 12:59; Status DC Multi-Ingred Cream/Lotion/Oil/ Oint (Artificial Tears Eye Ointment) 1 inkolai 1X ONCE OU Last administered on 09/16/20at 16:25; Start 09/16/20 at 16:15; Stop 09/16/20 at 16:16; Status DC Insulin Human Regular (HumuLIN R VIAL) 7 unit 1X ONCE SQ Last administered on 09/16/20at 18:03; Start 09/16/20 at 18:00; Stop 09/16/20 at 18:01; Status DC Aspirin (Debra Aspirin) 325 mg DAILYWBKFT PO Last administered on 09/17/20at 08:47; Start 09/17/20 at 08:00 Atorvastatin Calcium (Lipitor) 20 mg QHS PO Last administered on 09/16/20at 21:25; Start 09/16/20 at 21:00 Citalopram Hydrobromide (CeleXA) 20 mg DAILY PO Last administered on 09/17/20at 08:47; Start 09/17/20 at 09:00 Gabapentin (Neurontin) 300 mg TID PO Last administered on 09/17/20at 08:47; Start 09/16/20 at 21:00 Hydrochlorothiazide (Microzide) 12.5 mg DAILY PO ; Start 09/17/20 at 09:00 Insulin Human Lispro (HumaLOG) 7 units TIDWMEALS SQ Last administered on 09/17/20at 12:20; Start 09/16/20 at 20:00 Oxycodone/ Acetaminophen (Percocet 10/325) 1 tab PRN TID PRN PO MODERATE TO SEVERE PAIN Last administered on 09/17/20at 11:23; Start 09/16/20 at 20:00 Pantoprazole Sodium (Protonix) 40 mg DAILYAC PO Last administered on 09/17/20at 08:47; Start 09/17/20 at 07:30 Insulin Glargine (Lantus Syringe) 15 unit BID SQ Last administered on 09/17/20at 09:33; Start 09/16/20 at 21:00 Lisinopril (Prinivil) 10 mg DAILY PO Last administered on 09/17/20at 08:47; Start 09/17/20 at 09:00 Hydrochlorothiazide (Microzide) 12.5 mg DAILY PO Last administered on 09/17/20at 08:46; Start 09/17/20 at 09:00 Prednisone (Prednisone) 20 mg DAILY PO ; Start 09/18/20 at 09:00; Stop 09/19/20 at 08:59; Status UNV Prednisone (Prednisone) 10 mg 1X ONCE PO ; Start 09/19/20 at 09:00; Stop 09/19/20 at 09:01; Status UNV Active Scripts Active Hydrochlorothiazide Capsule (Hydrochlorothiazide) 12.5 Mg Capsule 12.5 Mg PO DAILY 30 Days Aspirin 325 Mg Tablet 325 Mg PO DAILYWBKFT 30 Days Atorvastatin Calcium 20 Mg Tablet 20 Mg PO QHS 30 Days Protonix (Pantoprazole Sodium) 40 Mg Tablet.dr 40 Mg PO DAILYAC 30 Days Novolin N Flexpen (Insulin NPH Human Isophane) 100 Unit/1 Ml Insuln.pen 15 Unit SQ BID Novolin R (Insulin Regular, Human) 100 Unit/1 Ml Vial 7 Unit IJ TID Reported Endocet 10-325 Mg Tablet (Oxycodone Hcl/Acetaminophen) 1 Each Tablet 1 Tab PO PRN TID PRN MDD 3 Tablet(s) 5 Days Gabapentin (Gabapentin) 300 Mg Capsule 300 Mg PO TID Celexa (Citalopram Hydrobromide) 20 Mg Tablet 20 Mg PO DAILY Lisinopril-Hctz 10-12.5 Mg Tab (Lisinopril/Hydrochlorothiazide) 1 Each Tablet 1 Tab PO DAILY Allergies Allergies: Coded Allergies: No Known Drug Allergies (Unverified , 02/28/20) ROS Review of System Negative for fever, chills, weight loss, shortness of breath, chest pain, indigestion, hematochezia, melena, and dysuria. Full 14-point review of systems is negative. Physical Exam Physical Examination General: Well-developed, well-nourished in no acute distress HEENT: Normocephalic andatraumatic. Temporal arteriespulsatile and nontender. Tympanic membranes clear Neck: Supple without bruit, no meningismus Musculoskeletal: Stability:see neurologic. Gait exam:see neurologic. Tone:see neurologic.Str ength:see neurologic. Neurological: Mental Status:intact, orientation, memory, attention span/concentration, language, fund of knowledge normal. Cranial Nerves:Pupils equal and reactive to light, extraocular movements areintact, visual langford are full to confrontation. Facial sensation is normal. There is right peripheral facial weakness. Vestibulo-ocular reflex is intact. Palate elevates and tongue protrudes in midline. All other cranial related problems are negative except as mentioned before.Reflexes:1+ and symmetric with flexor plantar responses. Motor:4/5, with normal tone and bulk. Coordination:Finger-nose finger and hsda-rx-hqsb testing are not impaired out of proportion to weakness. Rapid alternating movements and fine finger movements are intact. Gait:Not tested. Sensory:Bilateral stocking loss. Vitals VITALS Vital Signs Date Time Temp Pulse Resp B/P (MAP) Pulse Ox O2 Delivery O2 Flow Rate FiO2 09/17/20 11:23 20 96 Room Air 09/17/20 10:55 98.6 86 137/85 (102) 98.6 Labs Labs Laboratory Tests Test 09/16/20 14:41 09/16/20 14:44 09/16/20 18:02 09/16/20 21:17 Glucose (Fingerstick) 321 mg/dL (70-99) 212 mg/dL (70-99) 316 mg/dL (70-99) White Blood Count 7.8 x10^3/uL (4.0-11.0) Red Blood Count 5.13 x10^6/uL (4.30-5.70) Hemoglobin 14.9 g/dL (13.0-17.5) Hematocrit 43.4 % (39.0-53.0) Mean Corpuscular Volume 85 fL (79-100) Mean Corpuscular Hemoglobin 29 pg (25-35) Mean Corpuscular Hemoglobin Concent 34 g/dL (31-37) Red Cell Distribution Width 13.5 % (11.5-14.5) Platelet Count 277 x10^3/uL (140-400) Neutrophils (%) (Auto) 58 % (31-73) Lymphocytes (%) (Auto) 32 % (24-48) Monocytes (%) (Auto) 6 % (0-9) Eosinophils (%) (Auto) 3 % (0-3) Basophils (%) (Auto) 1 % (0-3) Neutrophils # (Auto) 4.5 x10^3/uL (1.8-7.7) Lymphocytes # (Auto) 2.5 x10^3/uL (1.0-4.8) Monocytes # (Auto) 0.5 x10^3/uL (0.0-1.1) Eosinophils # (Auto) 0.2 x10^3/uL (0.0-0.7) Basophils # (Auto) 0.1 x10^3/uL (0.0-0.2) Prothrombin Time 12.1 SEC (11.7-14.0) Prothromb Time International Ratio 0.9 (0.8-1.1) Activated Partial Thromboplast Time 30 SEC (24-38) Sodium Level 138 mmol/L (136-145) Potassium Level 4.4 mmol/L (3.5-5.1) Chloride Level 102 mmol/L (98-107) Carbon Dioxide Level 22 mmol/L (21-32) Anion Gap 14 (6-14) Blood Urea Nitrogen 18 mg/dL (8-26) Creatinine 1.1 mg/dL (0.7-1.3) Estimated GFR (Cockcroft-Gault) 69.2 Glucose Level 323 mg/dL (70-99) Calcium Level 9.1 mg/dL (8.5-10.1) Troponin I Quantitative < 0.017 ng/mL (0.000-0.055) Test 09/17/20 06:05 09/17/20 08:17 09/17/20 11:42 White Blood Count 13.3 x10^3/uL (4.0-11.0) Red Blood Count 4.84 x10^6/uL (4.30-5.70) Hemoglobin 13.7 g/dL (13.0-17.5) Hematocrit 41.2 % (39.0-53.0) Mean Corpuscular Volume 85 fL (79-100) Mean Corpuscular Hemoglobin 28 pg (25-35) Mean Corpuscular Hemoglobin Concent 33 g/dL (31-37) Red Cell Distribution Width 13.3 % (11.5-14.5) Platelet Count 280 x10^3/uL (140-400) Neutrophils (%) (Auto) 85 % (31-73) Lymphocytes (%) (Auto) 12 % (24-48) Monocytes (%) (Auto) 3 % (0-9) Eosinophils (%) (Auto) 0 % (0-3) Basophils (%) (Auto) 0 % (0-3) Neutrophils # (Auto) 11.3 x10^3/uL (1.8-7.7) Lymphocytes # (Auto) 1.5 x10^3/uL (1.0-4.8) Monocytes # (Auto) 0.4 x10^3/uL (0.0-1.1) Eosinophils # (Auto) 0.0 x10^3/uL (0.0-0.7) Basophils # (Auto) 0.0 x10^3/uL (0.0-0.2) Sodium Level 134 mmol/L (136-145) Potassium Level 4.7 mmol/L (3.5-5.1) Chloride Level 98 mmol/L (98-107) Carbon Dioxide Level 24 mmol/L (21-32) Anion Gap 12 (6-14) Blood Urea Nitrogen 26 mg/dL (8-26) Creatinine 1.2 mg/dL (0.7-1.3) Estimated GFR (Cockcroft-Gault) 62.6 Glucose Level 313 mg/dL (70-99) Calcium Level 8.9 mg/dL (8.5-10.1) Glucose (Fingerstick) 308 mg/dL (70-99) 331 mg/dL (70-99) Laboratory Tests Test 09/16/20 14:41 09/16/20 14:44 09/16/20 18:02 09/16/20 21:17 Glucose (Fingerstick) 321 mg/dL (70-99) 212 mg/dL (70-99) 316 mg/dL (70-99) White Blood Count 7.8 x10^3/uL (4.0-11.0) Red Blood Count 5.13 x10^6/uL (4.30-5.70) Hemoglobin 14.9 g/dL (13.0-17.5) Hematocrit 43.4 % (39.0-53.0) Mean Corpuscular Volume 85 fL (79-100) Mean Corpuscular Hemoglobin 29 pg (25-35) Mean Corpuscular Hemoglobin Concent 34 g/dL (31-37) Red Cell Distribution Width 13.5 % (11.5-14.5) Platelet Count 277 x10^3/uL (140-400) Neutrophils (%) (Auto) 58 % (31-73) Lymphocytes (%) (Auto) 32 % (24-48) Monocytes (%) (Auto) 6 % (0-9) Eosinophils (%) (Auto) 3 % (0-3) Basophils (%) (Auto) 1 % (0-3) Neutrophils # (Auto) 4.5 x10^3/uL (1.8-7.7) Lymphocytes # (Auto) 2.5 x10^3/uL (1.0-4.8) Monocytes # (Auto) 0.5 x10^3/uL (0.0-1.1) Eosinophils # (Auto) 0.2 x10^3/uL (0.0-0.7) Basophils # (Auto) 0.1 x10^3/uL (0.0-0.2) Prothrombin Time 12.1 SEC (11.7-14.0) Prothromb Time International Ratio 0.9 (0.8-1.1) Activated Partial Thromboplast Time 30 SEC (24-38) Sodium Level 138 mmol/L (136-145) Potassium Level 4.4 mmol/L (3.5-5.1) Chloride Level 102 mmol/L (98-107) Carbon Dioxide Level 22 mmol/L (21-32) Anion Gap 14 (6-14) Blood Urea Nitrogen 18 mg/dL (8-26) Creatinine 1.1 mg/dL (0.7-1.3) Estimated GFR (Cockcroft-Gault) 69.2 Glucose Level 323 mg/dL (70-99) Calcium Level 9.1 mg/dL (8.5-10.1) Troponin I Quantitative < 0.017 ng/mL (0.000-0.055) Test 09/17/20 06:05 09/17/20 08:17 09/17/20 11:42 White Blood Count 13.3 x10^3/uL (4.0-11.0) Red Blood Count 4.84 x10^6/uL (4.30-5.70) Hemoglobin 13.7 g/dL (13.0-17.5) Hematocrit 41.2 % (39.0-53.0) Mean Corpuscular Volume 85 fL (79-100) Mean Corpuscular Hemoglobin 28 pg (25-35) Mean Corpuscular Hemoglobin Concent 33 g/dL (31-37) Red Cell Distribution Width 13.3 % (11.5-14.5) Platelet Count 280 x10^3/uL (140-400) Neutrophils (%) (Auto) 85 % (31-73) Lymphocytes (%) (Auto) 12 % (24-48) Monocytes (%) (Auto) 3 % (0-9) Eosinophils (%) (Auto) 0 % (0-3) Basophils (%) (Auto) 0 % (0-3) Neutrophils # (Auto) 11.3 x10^3/uL (1.8-7.7) Lymphocytes # (Auto) 1.5 x10^3/uL (1.0-4.8) Monocytes # (Auto) 0.4 x10^3/uL (0.0-1.1) Eosinophils # (Auto) 0.0 x10^3/uL (0.0-0.7) Basophils # (Auto) 0.0 x10^3/uL (0.0-0.2) Sodium Level 134 mmol/L (136-145) Potassium Level 4.7 mmol/L (3.5-5.1) Chloride Level 98 mmol/L (98-107) Carbon Dioxide Level 24 mmol/L (21-32) Anion Gap 12 (6-14) Blood Urea Nitrogen 26 mg/dL (8-26) Creatinine 1.2 mg/dL (0.7-1.3) Estimated GFR (Cockcroft-Gault) 62.6 Glucose Level 313 mg/dL (70-99) Calcium Level 8.9 mg/dL (8.5-10.1) Glucose (Fingerstick) 308 mg/dL (70-99) 331 mg/dL (70-99) Images Images Head CT without contrast. HISTORY: Stroke. TECHNIQUE: Computed tomographic images of the head were obtained without contrast. *One or more of the following individualized dose reduction techniques were utilized for this examination: 1. Automated exposure control. 2. Adjustment of the mA and/or kV according to patient size. 3. Use of iterative reconstruction technique. COMPARISON: MRI dated 09/11/2020. FINDINGS: There is no acute or subacute extra-axial or intraparenchymal hemorrhage. There is no mass effect or midline shift. There is no hydrocephalus. There are areas of decreased attenuation within the cerebral white matter, nonspecific and likely related to chronic small vessel disease. There are focal areas of hypodensity due to chronic infarction within the left thalamus and brachium pontis and superior right cerebellum. The visualized portions of the orbits, paranasal sinuses and mastoid air cells are unremarkable. No suspicious calvarial lesion is seen. IMPRESSION: 1. No acute intracranial finding. Note is made that MRI is more sensitive for acute infarction. 2. Bilateral cerebral white matter changes, likely due to chronic small vessel disease. There are superimposed small chronic infarcts within the left thalamus, brachium pontis and superior right cerebellum. Assessment/Plan Assessment/Plan Impression: A week ago he definitely had signs of a left hemispheric stroke with right central facial weakness. This was most likely small vessel. 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 Multiple prior strokes Diabetic neuropathy. Recommendations: MRI of the brain, I do not know if cardiology remove the loop recorder last week, if it is out he can have the MRI tomorrow, otherwise it needs to be coordinated with company traveling representative Prednisone taper Keep right eye taped shut Rehabilitation modalities Aspirin and statin Aim for discharge tomorrow Thank you for letting me help with the patient's care. GRIS TOLLIVER MD Sep 17, 2020 13:09
--- NOTE | 2020-09-17 13:31 | PDOC ---
[employer] PROGRESS NOTE Date of Service DOS: DATE: 09/17/20 TIME: 13:21 Chief Complaint Chief Complaint Right sided facial weakness Possible Cheng's palsy Eye pain Headache History of Present Illness History of Present Illness 09/17/2020: Patient seen and examined Resting comfortably in bed Still complaining of difficulty blinking with right eye and associated right eye pain, has drops for lubrication Neurology recommends MRI brain tomorrow Discussed with RN Chart reviewed Vitals/I&O Vitals/I&O: Vital Signs Date Time Temp Pulse Resp B/P (MAP) Pulse Ox O2 Delivery O2 Flow Rate FiO2 09/17/20 11:23 20 96 Room Air 09/17/20 10:55 98.6 86 137/85 (102) 98.6 I & O 09/16/20 09/16/20 09/17/20 15:00 23:00 07:00 Intake Total 700 ml Output Total 715 ml Balance -15 ml Physical Exam Physical Exam: Eyes: Right eye appears red and irritated Neuro: Right facial weakness General: Alert, Oriented X3, Cooperative, No acute distress Heart: Regular rate, No murmurs Lungs: Clear, Other (No wheezes or crackles) Abdomen: Soft, No tenderness Extremities: No clubbing, No edema Skin: No rashes, No significant lesion Labs Labs: Laboratory Tests Test 09/16/20 14:41 09/16/20 14:44 09/16/20 18:02 09/16/20 21:17 Glucose (Fingerstick) 321 mg/dL (70-99) 212 mg/dL (70-99) 316 mg/dL (70-99) White Blood Count 7.8 x10^3/uL (4.0-11.0) Red Blood Count 5.13 x10^6/uL (4.30-5.70) Hemoglobin 14.9 g/dL (13.0-17.5) Hematocrit 43.4 % (39.0-53.0) Mean Corpuscular Volume 85 fL (79-100) Mean Corpuscular Hemoglobin 29 pg (25-35) Mean Corpuscular Hemoglobin Concent 34 g/dL (31-37) Red Cell Distribution Width 13.5 % (11.5-14.5) Platelet Count 277 x10^3/uL (140-400) Neutrophils (%) (Auto) 58 % (31-73) Lymphocytes (%) (Auto) 32 % (24-48) Monocytes (%) (Auto) 6 % (0-9) Eosinophils (%) (Auto) 3 % (0-3) Basophils (%) (Auto) 1 % (0-3) Neutrophils # (Auto) 4.5 x10^3/uL (1.8-7.7) Lymphocytes # (Auto) 2.5 x10^3/uL (1.0-4.8) Monocytes # (Auto) 0.5 x10^3/uL (0.0-1.1) Eosinophils # (Auto) 0.2 x10^3/uL (0.0-0.7) Basophils # (Auto) 0.1 x10^3/uL (0.0-0.2) Prothrombin Time 12.1 SEC (11.7-14.0) Prothromb Time International Ratio 0.9 (0.8-1.1) Activated Partial Thromboplast Time 30 SEC (24-38) Sodium Level 138 mmol/L (136-145) Potassium Level 4.4 mmol/L (3.5-5.1) Chloride Level 102 mmol/L (98-107) Carbon Dioxide Level 22 mmol/L (21-32) Anion Gap 14 (6-14) Blood Urea Nitrogen 18 mg/dL (8-26) Creatinine 1.1 mg/dL (0.7-1.3) Estimated GFR (Cockcroft-Gault) 69.2 Glucose Level 323 mg/dL (70-99) Calcium Level 9.1 mg/dL (8.5-10.1) Troponin I Quantitative < 0.017 ng/mL (0.000-0.055) Test 09/17/20 06:05 09/17/20 08:17 09/17/20 11:42 White Blood Count 13.3 x10^3/uL (4.0-11.0) Red Blood Count 4.84 x10^6/uL (4.30-5.70) Hemoglobin 13.7 g/dL (13.0-17.5) Hematocrit 41.2 % (39.0-53.0) Mean Corpuscular Volume 85 fL (79-100) Mean Corpuscular Hemoglobin 28 pg (25-35) Mean Corpuscular Hemoglobin Concent 33 g/dL (31-37) Red Cell Distribution Width 13.3 % (11.5-14.5) Platelet Count 280 x10^3/uL (140-400) Neutrophils (%) (Auto) 85 % (31-73) Lymphocytes (%) (Auto) 12 % (24-48) Monocytes (%) (Auto) 3 % (0-9) Eosinophils (%) (Auto) 0 % (0-3) Basophils (%) (Auto) 0 % (0-3) Neutrophils # (Auto) 11.3 x10^3/uL (1.8-7.7) Lymphocytes # (Auto) 1.5 x10^3/uL (1.0-4.8) Monocytes # (Auto) 0.4 x10^3/uL (0.0-1.1) Eosinophils # (Auto) 0.0 x10^3/uL (0.0-0.7) Basophils # (Auto) 0.0 x10^3/uL (0.0-0.2) Sodium Level 134 mmol/L (136-145) Potassium Level 4.7 mmol/L (3.5-5.1) Chloride Level 98 mmol/L (98-107) Carbon Dioxide Level 24 mmol/L (21-32) Anion Gap 12 (6-14) Blood Urea Nitrogen 26 mg/dL (8-26) Creatinine 1.2 mg/dL (0.7-1.3) Estimated GFR (Cockcroft-Gault) 62.6 Glucose Level 313 mg/dL (70-99) Calcium Level 8.9 mg/dL (8.5-10.1) Glucose (Fingerstick) 308 mg/dL (70-99) 331 mg/dL (70-99) Review of Systems Review of Systems: Reports right facial paralysis, headache, and right eye pain. Denies chest pain, shortness of breath. Assessment and Plan Assessmemt and Plan Assessment: New stroke symptoms Right facial weakness Possible Cheng's palsy Eye pain Headache Plan: Neurology consulted, recommendations appreciated MRI brain tomorrow Keep right eye taped shut Possible discharge home tomorrow Continue empiric acyclovir Continue Medrol dose pack DVT prophylaxis Full code Home meds Comment Review of Relevant I have reviewed the following items jackie (where applicable) has been applied. Medications: Current Medications Medications (Trade) Dose Ordered Sig/Rock Route PRN Reason Start Time Stop Time Status Last Admin Dose Admin Acetaminophen (Tylenol) 1,000 mg 1X ONCE PO 09/16/20 15:30 09/16/20 15:31 DC 09/16/20 15:29 Morphine Sulfate (Morphine Sulfate) 4 mg 1X ONCE IV 09/16/20 15:30 09/16/20 15:31 DC 09/16/20 15:30 Prednisone (Prednisone) 60 mg 1X ONCE PO 09/16/20 15:45 09/16/20 15:46 DC 09/16/20 15:29 Acyclovir (Zovirax) 400 mg 5XDAY PO 09/16/20 16:00 09/16/20 16:02 DC 09/16/20 16:25 Morphine Sulfate (Morphine Sulfate) 2 mg PRN Q2HR PRN IV PAIN 09/16/20 15:45 09/17/20 15:44 09/17/20 05:02 Acyclovir (Zovirax) 800 mg 5XDAY PO 09/16/20 18:00 09/17/20 08:48 Prednisone (Prednisone) 30 mg DAILY PO 09/17/20 09:00 09/17/20 12:59 DC 09/17/20 08:47 Multi-Ingred Cream/Lotion/Oil/ Oint (Artificial Tears Eye Ointment) 1 nikolai 1X ONCE OU 09/16/20 16:15 09/16/20 16:16 DC 09/16/20 16:25 Insulin Human Regular (HumuLIN R VIAL) 7 unit 1X ONCE SQ 09/16/20 18:00 09/16/20 18:01 DC 09/16/20 18:03 Aspirin (Debra Aspirin) 325 mg DAILYWBKFT PO 09/17/20 08:00 09/17/20 08:47 Atorvastatin Calcium (Lipitor) 20 mg QHS PO 09/16/20 21:00 09/16/20 21:25 Citalopram Hydrobromide (CeleXA) 20 mg DAILY PO 09/17/20 09:00 09/17/20 08:47 Gabapentin (Neurontin) 300 mg TID PO 09/16/20 21:00 09/17/20 08:47 Insulin Human Lispro (HumaLOG) 7 units TIDWMEALS SQ 09/16/20 20:00 09/17/20 12:20 Oxycodone/ Acetaminophen (Percocet 10/325) 1 tab PRN TID PRN PO MODERATE TO SEVERE PAIN 09/16/20 20:00 09/17/20 11:23 Pantoprazole Sodium (Protonix) 40 mg DAILYAC PO 09/17/20 07:30 09/17/20 08:47 Insulin Glargine (Lantus Syringe) 15 unit BID SQ 09/16/20 21:00 09/17/20 09:33 Lisinopril (Prinivil) 10 mg DAILY PO 09/17/20 09:00 09/17/20 08:47 Hydrochlorothiazide (Microzide) 12.5 mg DAILY PO 09/17/20 09:00 09/17/20 08:46 Justifications for Admission Other Justification Acute CVA SMITHA ANGEL III DO Sep 17, 2020 13:31
[2020-09-17 14:20] VITALS: BP 144/81
[2020-09-17] MEDS ORDERED: DEXTROSE 50% 25 GM / 50ML DISP.SYRIN. IV PRN ×2 (17:30→21:30)
[2020-09-17 19:50] VITALS: BP 146/89
[2020-09-17] MEDS: ATORVASTATIN CALCIUM 20 MG TABLET PO SCH (21:32)
[2020-09-17 23:35] VITALS: BP 137/89
[2020-09-18] MEDS: oxyCODONE/APAP 10/325 1 TAB TABLET PO PRN ×4 (00:28→15:53)
[2020-09-18 03:50] VITALS: BP 133/75
[2020-09-18] MEDS: ACYCLOVIR 200 MG CAPSULE. PO SCH ×3 (05:53→14:58)
[2020-09-18 07:00] VITALS: BP 137/84
[2020-09-18] MEDS ORDERED: INSULIN LISPRO 300 UNITS/3 ML VIAL. SQ SCH (08:00)
[2020-09-18] MEDS: CITALOPRAM 20 MG TABLET. PO SCH (08:50)
[2020-09-18] MEDS: LISINOPRIL 10 MG TABLET PO SCH (08:52)
[2020-09-18] MEDS: hydroCHLOROthiazide 12.5 MG CAPSULE PO SCH (08:52)
[2020-09-18] MEDS: ASPIRIN 325 MG TABLET PO SCH (08:53)
[2020-09-18] MEDS: PANTOPRAZOLE 40 MG TABLET.DR. PO SCH (08:53)
[2020-09-18] MEDS: GABAPENTIN 300 MG CAPSULE. PO SCH ×2 (08:53→14:57)
[2020-09-18] MEDS ORDERED: predniSONE 10 MG TABLET PO SCH (09:00)
[2020-09-18] MEDS ORDERED: LISINOPRIL 10 MG TABLET ONE (09:00)
[2020-09-18] MEDS: INSULIN LISPRO 300 UNITS/3 ML VIAL. SQ SCH ×6 (09:01→17:19)
[2020-09-18] MEDS: INSULIN GLARGINE SYRINGE. SQ SCH (09:23)
--- NOTE | 2020-09-18 10:36 | PDOC ---
PROGRESS NOTES Date of Service DATE: 09/18/20 TIME: 10:33 Assessment Problems Medical Problems: (1) Right sided weakness Status: Acute A week ago he definitely had signs of a left hemispheric stroke with right central facial weakness. This was most likely small vessel. 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 Multiple prior strokes Diabetic neuropathy. Plan MRI of the brain Prednisone taper He will need outpatient supply of as needed Percocet for his pain Continue gabapentin Acyclovir was also ordered Keep right eye taped shut until it closes on its own Rehabilitation modalities Aspirin and statin Aim for discharge later today Follow-up with me or my nurse practitioner, if no better in 4-6 weeks Subjective Face is stronger but has quite a bit of ipsilateral pain Objective Vital Signs Date Time Temp Pulse Resp B/P (MAP) Pulse Ox O2 Delivery O2 Flow Rate FiO2 09/18/20 08:52 85 137/84 09/18/20 07:00 98.3 18 94 Room Air 98.3 Intake and Output 09/18/20 07:00 Intake Total 1600 ml Output Total 1025 ml Balance 575 ml Intake Oral 1600 ml Output Urine Total 1025 ml PHYSICAL EXAM Alert. Oriented to time, place and person. PERRL. EOMI. CN: Right peripheral facial weakness, right eye closes a little Muscle tone: normal. Muscle strength: 4/5 DTR: 1+ Plantar reflex: [ ] Gait: A little unsteady. Sensory exam: Stocking loss. No cerebellar signs elicited. Review of Relevant I have reviewed the following items jackie (where applicable) has been applied. Labs Laboratory Tests Test 09/16/20 14:41 09/16/20 14:44 09/16/20 18:02 09/16/20 21:17 Glucose (Fingerstick) 321 mg/dL (70-99) 212 mg/dL (70-99) 316 mg/dL (70-99) White Blood Count 7.8 x10^3/uL (4.0-11.0) Red Blood Count 5.13 x10^6/uL (4.30-5.70) Hemoglobin 14.9 g/dL (13.0-17.5) Hematocrit 43.4 % (39.0-53.0) Mean Corpuscular Volume 85 fL (79-100) Mean Corpuscular Hemoglobin 29 pg (25-35) Mean Corpuscular Hemoglobin Concent 34 g/dL (31-37) Red Cell Distribution Width 13.5 % (11.5-14.5) Platelet Count 277 x10^3/uL (140-400) Neutrophils (%) (Auto) 58 % (31-73) Lymphocytes (%) (Auto) 32 % (24-48) Monocytes (%) (Auto) 6 % (0-9) Eosinophils (%) (Auto) 3 % (0-3) Basophils (%) (Auto) 1 % (0-3) Neutrophils # (Auto) 4.5 x10^3/uL (1.8-7.7) Lymphocytes # (Auto) 2.5 x10^3/uL (1.0-4.8) Monocytes # (Auto) 0.5 x10^3/uL (0.0-1.1) Eosinophils # (Auto) 0.2 x10^3/uL (0.0-0.7) Basophils # (Auto) 0.1 x10^3/uL (0.0-0.2) Prothrombin Time 12.1 SEC (11.7-14.0) Prothromb Time International Ratio 0.9 (0.8-1.1) Activated Partial Thromboplast Time 30 SEC (24-38) Sodium Level 138 mmol/L (136-145) Potassium Level 4.4 mmol/L (3.5-5.1) Chloride Level 102 mmol/L (98-107) Carbon Dioxide Level 22 mmol/L (21-32) Anion Gap 14 (6-14) Blood Urea Nitrogen 18 mg/dL (8-26) Creatinine 1.1 mg/dL (0.7-1.3) Estimated GFR (Cockcroft-Gault) 69.2 Glucose Level 323 mg/dL (70-99) Calcium Level 9.1 mg/dL (8.5-10.1) Troponin I Quantitative < 0.017 ng/mL (0.000-0.055) Test 09/17/20 06:05 09/17/20 08:17 09/17/20 11:42 09/17/20 16:15 White Blood Count 13.3 x10^3/uL (4.0-11.0) Red Blood Count 4.84 x10^6/uL (4.30-5.70) Hemoglobin 13.7 g/dL (13.0-17.5) Hematocrit 41.2 % (39.0-53.0) Mean Corpuscular Volume 85 fL (79-100) Mean Corpuscular Hemoglobin 28 pg (25-35) Mean Corpuscular Hemoglobin Concent 33 g/dL (31-37) Red Cell Distribution Width 13.3 % (11.5-14.5) Platelet Count 280 x10^3/uL (140-400) Neutrophils (%) (Auto) 85 % (31-73) Lymphocytes (%) (Auto) 12 % (24-48) Monocytes (%) (Auto) 3 % (0-9) Eosinophils (%) (Auto) 0 % (0-3) Basophils (%) (Auto) 0 % (0-3) Neutrophils # (Auto) 11.3 x10^3/uL (1.8-7.7) Lymphocytes # (Auto) 1.5 x10^3/uL (1.0-4.8) Monocytes # (Auto) 0.4 x10^3/uL (0.0-1.1) Eosinophils # (Auto) 0.0 x10^3/uL (0.0-0.7) Basophils # (Auto) 0.0 x10^3/uL (0.0-0.2) Sodium Level 134 mmol/L (136-145) Potassium Level 4.7 mmol/L (3.5-5.1) Chloride Level 98 mmol/L (98-107) Carbon Dioxide Level 24 mmol/L (21-32) Anion Gap 12 (6-14) Blood Urea Nitrogen 26 mg/dL (8-26) Creatinine 1.2 mg/dL (0.7-1.3) Estimated GFR (Cockcroft-Gault) 62.6 Glucose Level 313 mg/dL (70-99) Calcium Level 8.9 mg/dL (8.5-10.1) Glucose (Fingerstick) 308 mg/dL (70-99) 331 mg/dL (70-99) 346 mg/dL (70-99) Test 09/17/20 20:56 09/18/20 08:14 Glucose (Fingerstick) 362 mg/dL (70-99) 205 mg/dL (70-99) Laboratory Tests Test 09/17/20 11:42 09/17/20 16:15 09/17/20 20:56 09/18/20 08:14 Glucose (Fingerstick) 331 mg/dL (70-99) 346 mg/dL (70-99) 362 mg/dL (70-99) 205 mg/dL (70-99) Medications Current Medications Acetaminophen (Tylenol) 1,000 mg 1X ONCE PO Last administered on 09/16/20at 15:29; Start 09/16/20 at 15:30; Stop 09/16/20 at 15:31; Status DC Morphine Sulfate (Morphine Sulfate) 4 mg 1X ONCE IV Last administered on 09/16/20at 15:30; Start 09/16/20 at 15:30; Stop 09/16/20 at 15:31; Status DC Prednisone (Prednisone) 60 mg 1X ONCE PO Last administered on 09/16/20at 15:29; Start 09/16/20 at 15:45; Stop 09/16/20 at 15:46; Status DC Acyclovir (Zovirax) 400 mg 5XDAY PO Last administered on 09/16/20at 16:25; Start 09/16/20 at 16:00; Stop 09/16/20 at 16:02; Status DC Prednisone (Prednisone) 20 mg STK-MED ONCE .ROUTE ; Start 09/16/20 at 15:26; Stop 09/16/20 at 15:26; Status DC Ondansetron HCl (Zofran) 4 mg PRN Q8HRS PRN IV NAUSEA/VOMITING; Start 09/16/20 at 15:45; Stop 09/17/20 at 15:44; Status DC Morphine Sulfate (Morphine Sulfate) 2 mg PRN Q2HR PRN IV PAIN Last administered on 09/17/20at 05:02; Start 09/16/20 at 15:45; Stop 09/17/20 at 15:44; Status DC Acyclovir (Zovirax) 800 mg 5XDAY PO Last administered on 09/17/20at 08:48; Start 09/16/20 at 18:00; Stop 09/17/20 at 13:40; Status DC Prednisone (Prednisone) 30 mg DAILY PO Last administered on 09/17/20at 08:47; Start 09/17/20 at 09:00; Stop 09/17/20 at 12:59; Status DC Multi-Ingred Cream/Lotion/Oil/ Oint (Artificial Tears Eye Ointment) 1 nikolai 1X ONCE OU Last administered on 09/16/20at 16:25; Start 09/16/20 at 16:15; Stop 09/16/20 at 16:16; Status DC Insulin Human Regular (HumuLIN R VIAL) 7 unit 1X ONCE SQ Last administered on 09/16/20at 18:03; Start 09/16/20 at 18:00; Stop 09/16/20 at 18:01; Status DC Aspirin (Debra Aspirin) 325 mg DAILYWBKFT PO Last administered on 09/18/20 08:53; Start 09/17/20 at 08:00 Atorvastatin Calcium (Lipitor) 20 mg QHS PO Last administered on 09/17/20at 21:32; Start 09/16/20 at 21:00 Citalopram Hydrobromide (CeleXA) 20 mg DAILY PO Last administered on 09/18/20 08:50; Start 09/17/20 at 09:00 Gabapentin (Neurontin) 300 mg TID PO Last administered on 09/18/20 08:53; Start 09/16/20 at 21:00 Hydrochlorothiazide (Microzide) 12.5 mg DAILY PO Last administered on 09/17/20 15:30; Start 09/17/20 at 09:00; Stop 09/18/20 at 08:10; Status DC Insulin Human Lispro (HumaLOG) 7 units TIDWMEALS SQ Last administered on 09/18/20 09:02; Start 09/16/20 at 20:00 Oxycodone/ Acetaminophen (Percocet 10/325) 1 tab PRN TID PRN PO MODERATE TO SEVERE PAIN Last administered on 09/17/20at 11:23; Start 09/16/20 at 20:00; Stop 09/17/20 at 13:21; Status DC Pantoprazole Sodium (Protonix) 40 mg DAILYAC PO Last administered on 09/18/20 08:53; Start 09/17/20 at 07:30 Insulin Glargine (Lantus Syringe) 15 unit BID SQ Last administered on 09/18/20at 09:23; Start 09/16/20 at 21:00 Lisinopril (Prinivil) 10 mg DAILY PO Last administered on 09/18/20at 08:52; Start 09/17/20 at 09:00 Hydrochlorothiazide (Microzide) 12.5 mg DAILY PO Last administered on 09/18/20at 08:52; Start 09/17/20 at 09:00 Prednisone (Prednisone) 20 mg DAILY PO Last administered on 09/18/20at 08:50; Start 09/18/20 at 09:00; Stop 09/19/20 at 08:59 Prednisone (Prednisone) 10 mg 1X ONCE PO ; Start 09/19/20 at 09:00; Stop 09/19/20 at 09:01 Oxycodone/ Acetaminophen (Percocet 10/325) 1 tab PRN Q4HRS PRN PO MODERATE TO SEVERE PAIN Last administered on 09/18/20at 04:44; Start 09/17/20 at 13:30 Acyclovir (Zovirax) 400 mg 5XDAY PO Last administered on 09/18/20at 05:53; Start 09/17/20 at 14:00 Insulin Human Lispro (HumaLOG) 0-7 UNITS TIDWMEALS SQ Last administered on 09/17/20at 18:24; Start 09/18/20 at 08:00; Stop 09/17/20 at 21:21; Status DC Dextrose (Dextrose 50%-Water Syringe) 12.5 gm PRN Q15MIN PRN IV SEE COMMENTS; Start 09/17/20 at 17:30; Stop 09/17/20 at 21:21; Status DC Insulin Human Lispro (HumaLOG) 0-7 UNITS TIDACHC SQ Last administered on 09/18/20at 09:01; Start 09/18/20 at 07:30 Dextrose (Dextrose 50%-Water Syringe) 12.5 gm PRN Q15MIN PRN IV SEE COMMENTS; Start 09/17/20 at 21:30 Active Scripts Active Hydrochlorothiazide Capsule (Hydrochlorothiazide) 12.5 Mg Capsule 12.5 Mg PO DAILY 30 Days Aspirin 325 Mg Tablet 325 Mg PO DAILYWBKFT 30 Days Atorvastatin Calcium 20 Mg Tablet 20 Mg PO QHS 30 Days Protonix (Pantoprazole Sodium) 40 Mg Tablet.dr 40 Mg PO DAILYAC 30 Days Novolin N Flexpen (Insulin NPH Human Isophane) 100 Unit/1 Ml Insuln.pen 15 Unit SQ BID Novolin R (Insulin Regular, Human) 100 Unit/1 Ml Vial 7 Unit IJ TID Reported Endocet 10-325 Mg Tablet (Oxycodone Hcl/Acetaminophen) 1 Each Tablet 1 Tab PO PRN TID PRN MDD 3 Tablet(s) 5 Days Gabapentin (Gabapentin) 300 Mg Capsule 300 Mg PO TID Celexa (Citalopram Hydrobromide) 20 Mg Tablet 20 Mg PO DAILY Lisinopril-Hctz 10-12.5 Mg Tab (Lisinopril/Hydrochlorothiazide) 1 Each Tablet 1 Tab PO DAILY Vitals/I & O Vital Sign - Last 24 Hours 09/17/20 09/17/20 09/17/20 09/17/20 10:55 11:23 14:20 15:24 Temp 98.6 98.4 98.6 98.4 Pulse 86 81 Resp 20 20 20 18 B/P (MAP) 137/85 (102) 144/81 (102) Pulse Ox 96 96 95 95 O2 Delivery Room Air Room Air Room Air Room Air 09/17/20 09/17/20 09/17/20 09/17/20 15:54 19:25 19:30 19:50 Temp 98.4 98.4 Pulse 92 Resp 20 18 B/P (MAP) 146/89 (108) Pulse Ox 95 96 O2 Delivery Room Air Room Air Room Air Room Air 09/17/20 09/17/20 09/18/20 09/18/20 20:00 23:35 00:28 01:00 Temp 98.6 98.6 Pulse 90 Resp 18 B/P (MAP) 137/89 (105) Pulse Ox 94 O2 Delivery Room Air Room Air Room Air Room Air 09/18/20 09/18/20 09/18/20 09/18/20 03:50 04:44 05:18 07:00 Temp 98.0 98.3 98.0 98.3 Pulse 72 66 Resp 18 18 B/P (MAP) 133/75 (94) 137/84 (101) Pulse Ox 95 94 O2 Delivery Room Air Room Air Room Air Room Air 09/18/20 08:52 Pulse 85 B/P (MAP) 137/84 Intake and Output 09/17/20 09/17/20 09/18/20 15:00 23:00 07:00 Intake Total 820 ml 480 ml 300 ml Output Total 1025 ml Balance 820 ml -545 ml 300 ml Justicifation of Admission Dx: Justifications for Admission: Justification of Admission Dx: Yes GRIS TOLLIVER MD Sep 18, 2020 10:36
[2020-09-18 11:00] VITALS: BP 133/79
[2020-09-18] MEDS ORDERED: ACYC200C84 PO (11:25)
--- NOTE | 2020-09-18 11:50 | NUR ---
SW following. Discussed with RN, pt from home with , room air, ada diet. Pt having a brain MRI. Discharge order for home with self care. RN advised no SW needs. SW will continue to follow.
--- NOTE | 2020-09-18 11:53 | PDOC ---
[facility] PROGRESS NOTE Date of Service DOS: DATE: 09/18/20 TIME: 11:51 Chief Complaint Chief Complaint Right sided facial weakness Possible Cheng's palsy Eye pain Headache History of Present Illness History of Present Illness 09/18/2020 Patient seen and examined Complains of right eye pain still Will have MRI today Discussed with RN Discussed with case management Chart reviewed 09/17/2020: Patient seen and examined Resting comfortably in bed Still complaining of difficulty blinking with right eye and associated right eye pain, has drops for lubrication Neurology recommends MRI brain tomorrow Discussed with RN Chart reviewed Vitals/I&O Vitals/I&O: Vital Signs Date Time Temp Pulse Resp B/P (MAP) Pulse Ox O2 Delivery O2 Flow Rate FiO2 09/18/20 11:03 Room Air 09/18/20 11:00 97.9 61 18 133/79 (97) 94 97.9 I & O 09/17/20 09/17/20 09/18/20 15:00 23:00 07:00 Intake Total 820 ml 480 ml 300 ml Output Total 1025 ml Balance 820 ml -545 ml 300 ml Physical Exam Physical Exam: Eyes: Right eye appears red and irritated Neuro: Right facial weakness General: Alert, Oriented X3, Cooperative, No acute distress Heart: Regular rate, No murmurs Lungs: Clear, Other (No wheezes or crackles) Abdomen: Soft, No tenderness Extremities: No clubbing, No edema Skin: No rashes, No significant lesion Labs Labs: Laboratory Tests Test 09/17/20 16:15 09/17/20 20:56 09/18/20 08:14 09/18/20 11:28 Glucose (Fingerstick) 346 mg/dL (70-99) 362 mg/dL (70-99) 205 mg/dL (70-99) 130 mg/dL (70-99) Review of Systems Review of Systems: Reports eye pain and headache. Denies n/v Assessment and Plan Assessmemt and Plan Assessment: New stroke symptoms Right facial weakness Possible Cheng's palsy Eye pain Headache Plan: Neurology consulted, recommendations appreciated MRI brain today Keep right eye taped shut Possible discharge home today Continue empiric acyclovir Continue Medrol dose pack DVT prophylaxis Full code Home meds Comment Review of Relevant I have reviewed the following items jackie (where applicable) has been applied. Medications: Current Medications Medications (Trade) Dose Ordered Sig/Rock Route PRN Reason Start Time Stop Time Status Last Admin Dose Admin Prednisone (Prednisone) 20 mg DAILY PO 09/18/20 09:00 09/19/20 08:59 09/18/20 08:50 Oxycodone/ Acetaminophen (Percocet 10/325) 1 tab PRN Q4HRS PRN PO MODERATE TO SEVERE PAIN 09/17/20 13:30 09/18/20 11:03 Acyclovir (Zovirax) 400 mg 5XDAY PO 09/17/20 14:00 09/18/20 11:02 Insulin Human Lispro (HumaLOG) 0-7 UNITS TIDWMEALS SQ 09/18/20 08:00 09/17/20 21:21 DC 09/17/20 18:24 Insulin Human Lispro (HumaLOG) 0-7 UNITS TIDACHC SQ 09/18/20 07:30 09/18/20 09:01 Justifications for Admission Other Justification Acute CVA SMITHA ANGEL III DO Sep 18, 2020 11:53
--- NOTE | 2020-09-18 13:14 | DS ---
DATE OF DISCHARGE: 09/18/2020 ADMISSION DIAGNOSES: Probable Cheng's palsy and history of previous stroke. DISCHARGE DIAGNOSES: Resolving Cheng's palsy, history of old strokes, hyperlipidemia, polypharmacy, hypertension, chronic pain, neuropathy, depression, anxiety, gastroesophageal reflux disease and diabetes. CONSULTS: Dr. Araya. PROCEDURES: None. HOSPITAL COURSE: The patient is a pleasant middle-aged male who has suffered from strokes over the years. He has actually had 2 or 3 previous strokes. Once again, he presented with some stroke-like symptoms, but we realized this is possibly a Cheng's palsy. His right eye is drooped. His right face is also drooped. He has got a red eye. He cannot winkle his forehead and so we went ahead and started him on steroids and acyclovir. We did consult Dr. Araya. An MRI is still pending today, but clinically I saw and examined this morning, he is doing well. We planned to discharge on a Medrol Dosepak and acyclovir. DISPOSITION: Home. ACTIVITY: As tolerated. DIET: Low sodium. MEDICATIONS: Please see the MRAD. Acyclovir 400 p.o. q.i.d. for 7 days, Tylenol 325 a day, Lipitor 20 a day, Celexa 20 a day, gabapentin 300 t.i.d., hydrochlorothiazide 12.5 a day, insulin, lisinopril 10 a day, oxycodone p.r.n., Protonix 40 a day. Total time [address]: Albertina TID: [id number]
[2020-09-18 15:00] VITALS: BP 122/86
--- NOTE | 2020-09-18 16:04 | RAD ---
MRI of the brain without contrast 09/18/2020 Clinical History: Right facial weakness. History of previous CVA.. Technique: Unenhanced T1-weighted sagittal and axial, T2-weighted axial and coronal and FLAIR, suscep tibility weighted and diffusion-weighted axial images of the brain were obtained. Findings: Comparison study is dated 09/11/2020. Additional comparison is made to patient's CT scan of the head dated 09/16/2020. There is generalized parenchymal atrophy. Patchy and several small scattered areas of increased signa l intensity are seen within the periventricular and subcortical white matter of both cerebral hemisph eres along with the left cerebral peduncle on FLAIR and T2-weighted images consistent with areas of s mall vessel ischemic disease. These are unchanged. Small old areas of lacunar infarction are seen inv olving the right brachium pontis and jack. No acute parenchymal abnormality is seen. No extra-axial f luid collection is noted. Mild mucosal thickening in seen scattered throughout the paranasal sinuses. Normal flow voids are see n within the major vascular structures surrounding the brain parenchyma. IMPRESSION: No acute parenchymal abnormality is seen. Electronically signed by: Edouard Epstein MD (09/18/2020 4:02 PM) [id number]
--- NOTE | 2020-09-18 17:28 | NUR ---
Discharge Note: KORIN JEFFREY 2 Discharge instructions and discharge home medications reviewed with Patient and a copy given. All questions have been answered and understanding verbalized. The following instructions and handouts were given: discharge instructions, follow ups, rxs, stroke prevention, bells palsy education. Discontinued lines and drains: Peripheral IV intact. Patient discharged to Home or Self Care with Spouse via Wheelchair at 1728. Patient ate extra lunch so blood glucose was elevated at 351, Dr. Reyes notified, 14 units Humalog administered before patient discharged & instructed to recheck when he got home.
[2020-09-19] MEDS ORDERED: predniSONE 10 MG TABLET PO ONE (09:00)
== END 2020-09-18 17:28 | disposition home or self-care (01) ==
LOC: ER 13:45 → INTOOBSV 16:49 → ED HOLD 16:49 → 2 NORTH 20:43
PROVIDERS: ADMIT Internal Medicine; ATTEND Internal Medicine
DX: I63.9 Cerebral infarction, unspecified (principal); I69.354 Hemiplegia and hemiparesis following cerebral infarction affecting left non-dominant side; G51.0 Bell's palsy; I10 Essential (primary) hypertension; E78.5 Hyperlipidemia, unspecified; E10.40 Type 1 diabetes mellitus with diabetic neuropathy, unspecified; E10.51 Type 1 diabetes mellitus with diabetic peripheral angiopathy without gangrene; K21.9 Gastro-esophageal reflux disease without esophagitis; F41.9 Anxiety disorder, unspecified; F32.9 Major depressive disorder, single episode, unspecified; R51.9 Headache, unspecified; Z79.4 Long term (current) use of insulin; Z90.49 Acquired absence of other specified parts of digestive tract; Z87.891 Personal history of nicotine dependence; Z98.890 Other specified postprocedural states; Z87.442 Personal history of urinary calculi; Z79.82 Long term (current) use of aspirin
CPT/HCPCS: 36415; 70450; 70551; 80048; 82962; 84484; 85025; 85610; 85730; 93005; 96372; 96374; 96376; 99285; G0378; J1815; J2270; J7512; G0379

== ENCOUNTER 2021-03-24 02:38 | Inpatient (IN) | payer MEDICAID ==
[~2021-03-24] VITALS: Ht 172.7 cm; Wt 86.9 kg
[~2021-03-24 02:38] MED LIST changes: +ACYC200C84 PO; +AMOX1TAB11 PO; +HYDR-2761 PO; -LISI1TAB23 PO; +LISI1TAB35 PO; +VALA500T9 PO
--- NOTE | 2021-03-24 03:01 | RAD ---
CT HEAD INDICATION: Code stroke COMPARISON: None Available. Exposure: One or more of the following individualized dose reduction techniques were utilized for thi s examination: 1. Automated exposure control 2. Adjustment of the mA and/or kV according to patient size 3. Use of iterative reconstruction technique TECHNIQUE: 5 mm contiguous axial images were obtained from the skull base to the vertex in both bone and soft tissue algorithm. FINDINGS: No abnormal attenuation within the brain parenchyma. No evidence of acute intracranial hemorrhage. No extra-axial fluid collections. No mass effect or midline shift. Ventricular size is appropriate. Basal cisterns are patent. No fractures identified.Mujica-white differentiation is preserved.Globes and orbits are within normal l imits. Paranasal sinuses and mastoid air cells are clear. IMPRESSION: No acute intracranial findings FOR INTERNAL CODING PURPOSES Critical result: Findings discussed with ER physician at 03/24/2021 2:58 AM. RESULT CODE: (C) Electronically signed by: Franki Banks MD (03/24/2021 2:58 AM) [id number]
[2021-03-24 03:03] LABS: BASO # 0.1 x10^3/uL (0.0-0.2); BASO % 1 % (0-3); EOS # 0.2 x10^3/uL (0.0-0.7); EOS % 3 % (0-3); HEMATOCRIT 40.4 % (39.0-53.0); HEMOGLOBIN 13.8 g/dL (13.0-17.5); LYMPH # 3.7 x10^3/uL (1.0-4.8); LYMPH % 45 % (24-48); MEAN CORPUSCULAR HEMOGLOBIN 29 pg (25-35); MEAN CORPUSCULAR HGB CONC 34 g/dL (31-37); MEAN CORPUSCULAR VOLUME 85 fL (79-100); MONO # 0.5 x10^3/uL (0.0-1.1); MONO % 6 % (0-9); NEUT # 3.7 x10^3/uL (1.8-7.7); NEUT % 45 % (31-73); PLATELET COUNT 292 x10^3/uL (140-400); RED BLOOD COUNT 4.75 x10^6/uL (4.30-5.70); RED CELL DISTRIBUTION WIDTH 14.9 % (11.5-14.5); WHITE BLOOD COUNT 8.1 x10^3/uL (4.0-11.0)
--- NOTE | 2021-03-24 03:07 | EKG ---
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
--- NOTE | 2021-03-24 03:09 | PHYS DOC ---
Past Medical History Past Medical History: CVA, Diabetes-Type II, Hypertension, Kidney Stone Additional Past Medical Histor: STAPH INFECTION ON LEFT LEG W/ SX, CVA with L side weakness Past Surgical History: Appendectomy, Cholecystectomy Additional Past Surgical Histo: ROTATOR CUFF SX Smoking Status: Never Smoker Alcohol Use: None General Adult EDM: Chief Complaint: MULTIPLE COMPLAINTS HPI: HPI: Patient is a 55 year old brought in by EMS from home for reported speech dif ficulty and reported facial droop. According to EMS, the patient's significant other had inform them that symptoms began 30 minutes prior to arrival. However, she is not here, and she is not reachable via phone to corroborate any specific information. The patient reports that he had been asleep prior to EMS arrival. On arrival, the patient's speech is altered, how he manifests no evidence of f acial asymmetry. The patient reports that he just does not feel well. He is unable to articulate any specific complaints, he is a poor historian. He does appear to be acutely altered however. He is taken immediately to CT for head CT. Head CT returned negative for any acute process. The patient manifested some diffuse, symmetric bilateral upper and lower extremity shaking movements in extension of bilateral upper and lower extremities, but was awake and conversant and looking around and following commands during these episodes. No loss of consciousness or tonic-clonic activity was noted. Ultimately, after several minutes, the patient's mentation progressively did start to improve. He reported having a headache, though denies any severe or sudden onset headache. Not the worst headache of his life, per his report. He reports that he feels generally weak all over. He denies any fall or head injury. He denies chest pain, dyspnea, abdominal pain, nausea vomiting. He denies numbness or tingling. He has a history of previous CVA. He denies that he feels similar to prior CVA symptoms. His speech cleared within several minutes as well. He does admit that he is not entirely certain what occurred prior to his arrival here today. I made multiple attempts to contact the patient's significant other, via phone, with the number provided here, without success. Review of Systems: Review of Systems: Constitutional: Denies fever or chills. [] Eyes: Denies vision loss. HENT: Denies nasal congestion or sore throat. [] Respiratory: Denies cough or shortness of breath. [] Cardiovascular: Denies chest pain or edema. [] GI: Denies abdominal pain, nausea, vomiting, bloody stools or diarrhea. [] : Denies dysuria. [] Musculoskeletal: Denies back pain or joint pain. He does report some mild diffuse myalgia. Integument: Denies rash. [] Neurologic: Reports headache. He denies focal weakness or numbness or tingling. He denies syncope. He is unaware of any head injury or loss of consciousness. Psychiatric: Denies depression or anxiety. Denies acute mood changes. Denies mai use or illicit substance use. [] Heart Score: C/O Chest Pain: No Risk Factors: Risk Factors: DM, Current or recent (<one month) smoker, HTN, HLP, family history of CAD, obesity. Risk Scores: Score 0 - 3: 2.5% MACE over next 6 weeks - Discharge Home Score 4 - 6: 20.3% MACE over next 6 weeks - Admit for Clinical Observation Score 7 - 10: 72.7% MACE over next 6 weeks - Early Invasive Strategies Allergies: Allergies: Allergies Coded Allergies Type Severity Reaction Last Updated Verified I S O L A T I O N *CONTACT* Allergy Unknown 01/15/21 Yes No Known Medication Allergies Allergy Unknown 01/15/21 Yes Physical Exam: PE: Constitutional: Well developed, well nourished, no acute distress, non-toxic appearance. He does appear older than stated age. HENT: Normocephalic, atraumatic, bilateral external ears normal, TMs are clear bilaterally, oropharynx moist, no oral exudates, nose normal. Membranes are moist. Eyes: PERRL, EOMI, conjunctiva normal, no discharge. Sclera are clear and anicteric. Neck: Normal range of motion, no tenderness, supple, no stridor. No meningismus. Trachea is midline. Cardiovascular:Heart rate regular rhythm, +2 radial dorsalis pedis pulses bilaterally. Lungs & Thorax: Bilateral breath sounds clear to auscultation [] Abdomen: Bowel sounds normal, soft, no tenderness, no masses, no pulsatile masses. [] Skin: Warm, dry, no erythema, no rash. [] Extremities: No tenderness, no cyanosis, no clubbing, ROM intact, no edema. No calf tenderness. Neurologic: Initially, the patient is drowsy, opens eyes spontaneously, he follows most commands. No facial asymmetry is noted. He is confused, not fully oriented. However, after several minutes, the patient is spontaneously awake, oriented x3. Cranial nerves II through XII are grossly intact. 5 out of 5 motor strength all 4 extremities. No limb ataxia is noted. Sensation is grossly intact. His speech was initially somewhat stuttering and mildly dysarthric, but this cleared quickly. Psychologic: Flat affect. He is cooperative and pleasant. Current Patient Data: Labs: Laboratory Tests Test 03/24/21 02:50 03/24/21 02:52 White Blood Count 8.1 x10^3/uL (4.0-11.0) Red Blood Count 4.75 x10^6/uL (4.30-5.70) Hemoglobin 13.8 g/dL (13.0-17.5) Hematocrit 40.4 % (39.0-53.0) Mean Corpuscular Volume 85 fL (79-100) Mean Corpuscular Hemoglobin 29 pg (25-35) Mean Corpuscular Hemoglobin Concent 34 g/dL (31-37) Red Cell Distribution Width 14.9 % (11.5-14.5) H Platelet Count 292 x10^3/uL (140-400) Neutrophils (%) (Auto) 45 % (31-73) Lymphocytes (%) (Auto) 45 % (24-48) Monocytes (%) (Auto) 6 % (0-9) Eosinophils (%) (Auto) 3 % (0-3) Basophils (%) (Auto) 1 % (0-3) Neutrophils # (Auto) 3.7 x10^3/uL (1.8-7.7) Lymphocytes # (Auto) 3.7 x10^3/uL (1.0-4.8) Monocytes # (Auto) 0.5 x10^3/uL (0.0-1.1) Eosinophils # (Auto) 0.2 x10^3/uL (0.0-0.7) Basophils # (Auto) 0.1 x10^3/uL (0.0-0.2) Glucose (Fingerstick) 367 mg/dL (70-99) H Laboratory Tests 03/24/21 02:50 EKG: EKG: EKG is interpreted at 03 100 Rhythm is sinus It is 100 bpm [place] is left Baseline artifact No STEMI Radiology/Procedures: Radiology/Procedures: IMAGING REPORT Signed PATIENT: KORIN JEFFREY ACCOUNT: [id number] : 1965 LOCATION: ER AGE: 55 SEX: M EXAM STATUS: PRE ER ORD. PHYSICIAN: BECKA MITCHELL DO REASON: stroke PROCEDURE: CT CODE STROKE HEAD WO CT HEAD INDICATION: Code stroke COMPARISON: None Available. Exposure: One or more of the following individualized dose reduction techniques were utilized for this examination: 1. Automated exposure control 2. Adjustment of the mA and/or kV according to patient size 3. Use of iterative reconstruction technique TECHNIQUE: 5 mm contiguous axial images were obtained from the skull base to the vertex in both bone and soft tissue algorithm. FINDINGS: No abnormal attenuation within the brain parenchyma. No evidence of acute intracranial hemorrhage. No extra-axial fluid collections. No mass effect or midline shift. Ventricular size is appropriate. Basal cisterns are patent. No fractures identified.Mujica-white differentiation is preserved.Globes and orbits are within normal limits. Paranasal sinuses and mastoid air cells are clear. IMPRESSION: No acute intracranial findings FOR INTERNAL CODING PURPOSES Critical result: Findings discussed with ER physician at 03/24/2021 2:58 AM. RESULT CODE: (C) Electronically signed by: Franki Banks MD (03/24/2021 2:58 AM) [id number] DICTATED and SIGNED BY: FRANKI BANKS MD DATE: 03/24/21 [id number] IMAGING REPORT Signed PATIENT: KORIN JEFFREY ACCOUNT: [id number] : 1965 LOCATION: ER AGE: 55 SEX: M EXAM STATUS: REG ER ORD. PHYSICIAN: BECKA MITCHELL DO REASON: stroke PROCEDURE: PORTABLE CHEST 1V EXAM: CHEST 1 VIEW History: Stroke COMPARISON: None available. TECHNIQUE: Single portable radiograph of the chest FINDINGS: Low lung volumes and technique accentuates heart size and pulmonary vascularity. The lungs are clear bilaterally. The costophrenic sulci are clear and well demarcated. IMPRESSION: No radiographic evidence of an acute cardiopulmonary process. Electronically signed by: Franki Banks MD (03/24/2021 5:00 AM) [id number] DICTATED and SIGNED BY: FRANKI BANKS MD DATE: 03/24/21 [id number] Course & Med Decision Making: Course & Med Decision Making Pertinent Labs and Imaging studies reviewed. (See chart for details) I discussed the findings, differential diagnosis and plan of care with the patient. He is given IV fluids. He requested something for his headache, so he was given a dose of IV Toradol. Lactic acid was initially elevated, I have requested a repeat lab draw. Anion gap is normal. Ammonia level is slightly elevated. He does not appear to be clinically intoxicated. His clinical condition has progressively improved relatively rapidly. No obvious indication for diagnosis of CVA, no indication for TPA administration. Underlying etiology for symptoms could be postictal state after seizure, though no witnessed actual seizure or generalized tonic-clonic activity reported or noted here. Could also be underlying metabolic encephalopathic condition. He is comfortable with the plan for admission. I consulted with Dr. Joe of neurology, who agrees to see the patient while admitted. He is accepted for admission by Dr. Tony. Cheri Disclaimer: Cheri Disclaimer: This electronic medical record was generated, in whole or in part, using a voice recognition dictation system. Departure Departure Impression: Primary Impression: AMS (altered mental status) Qualified Codes: R41.82 - Altered mental status, unspecified Disposition: ADMITTED INPATIENT Admitting Physician: DOLORES Condition: IMPROVED Referrals: SEFERINO MENJIVAR MD (PCP) BCEKA MITCHELL DO Mar 24, 2021 03:09
[2021-03-24 03:20] LABS: CREATININE 1.1 mg/dL (0.7-1.3); POTASSIUM 3.7 mmol/L (3.5-5.1)
[2021-03-24 03:20] LABS: BILIRUBIN,URINE NEGATIVE (NEG); CLARITY,URINE CLEAR; COLOR,URINE YELLOW; NITRITE,URINE NEGATIVE (NEG); PH,URINE 6.5 (<5.0-8.0); PROTEIN,URINE 100 mg/dL (NEG-TRACE)
[2021-03-24 03:24] LABS: BARBITURATES NEG (NEG); BENZODIAZEPINES NEG (NEG); CANNABINOIDS NEG (NEG); COCAINE NEG (NEG); METHADONE NEG (NEG); OPIATES NEG (NEG); PHENCYCLIDINE NEG (NEG)
[2021-03-24 03:26] LABS: BACTERIA,URINE 0 /HPF (0-FEW); RBC,URINE OCC /HPF (0-2); WBC,URINE RARE /HPF (0-4)
[2021-03-24 03:28] LABS: AMPHETAMINE/METHAMPHETAMINE NEG (NEG)
[2021-03-24] MEDS ORDERED: IV NORMAL SALINE 1000ML BAG 1,000 ML IV ONE ×2 (04:15→05:30)
[2021-03-24 04:27] LABS: ALBUMIN 3.4 g/dL (3.4-5.0); DIRECT BILIRUBIN 0.1 mg/dL (0.0-0.2); TOTAL BILIRUBIN 0.2 mg/dL (0.2-1.0); TOTAL PROTEIN 7.7 g/dL (6.4-8.2)
--- NOTE | 2021-03-24 05:02 | RAD ---
EXAM: CHEST 1 VIEW History: Stroke COMPARISON: None available. TECHNIQUE: Single portable radiograph of the chest FINDINGS: Low lung volumes and technique accentuates heart size and pulmonary vascularity. The lungs are clear bilaterally. The costophrenic sulci are clear and well demarcated. IMPRESSION: No radiographic evidence of an acute cardiopulmonary process. Electronically signed by: Franki Banks MD (03/24/2021 5:00 AM) [id number]
[2021-03-24] MEDS ORDERED: KETOROLAC 15 MG/ML VIAL. IVP ONE (05:30)
[2021-03-24 05:34] LABS: INFLUENZA A PATIENT NEGATIVE (NEGATIVE); INFLUENZA B PATIENT NEGATIVE (NEGATIVE)
[2021-03-24 06:34] VITALS: BP 156/79
--- NOTE | 2021-03-24 09:03 | PDOC1 ---
History and Physical Date of Admission Date of Admission DATE: 03/24/21 TIME: 09:02 History of Present Illness History of Present Illness Mr. Christianson, is a 55 year old brought in by EMS from home for confusion, after awakneing at [place] with new symptoms He had a new speech difficulty and facial droop. her proted consuion and had witness tremor and shakign movements to his upper extremities. He feels weak and is not sure where he is todaym, prior stroke noted in prior notes Past Medical History Cardiovascular: HTN CENTRAL NERVOUS SYSTEM: Periperal neuropathy, TIA GI: Other Hepatobiliary: No pertinent hx Renal/: No pertinent hx Endocrine: Diabetes Past Surgical History Past Surgical History: Appendectomy, Cholecystectomy, Other Family History Family History: Diabetes, Hypertension, Stroke Social History Smoke: No ALCOHOL: none Drugs: Marijuana Current Medications Current Medications Current Medications Sodium Chloride 1,000 ml @ 1,000 mls/hr 1X ONCE IV Last administered on 03/24/21at 04:15; Start 03/24/21 at 04:15; Stop 03/24/21 at 05:14; Status DC Ketorolac Tromethamine (Toradol 15mg Vial) 15 mg 1X ONCE IVP ; Start 03/24/21 at 05:30; Stop 03/24/21 at 05:31; Status DC Sodium Chloride 1,000 ml @ 75 mls/hr 1X ONCE IV Last administered on 03/24/21at 08:15; Start 03/24/21 at 05:30; Stop 03/24/21 at 18:49 Active Scripts Active Valacyclovir (Valacyclovir Hcl) 500 Mg Tablet 1,000 Mg PO TID 7 Days Amox Tr-K Clv 875-125 Mg Tab (Amoxicillin/Potassium Clav) 1 Each Tablet 1 Tab PO BID 3 Days Hydrochlorothiazide Capsule (Hydrochlorothiazide) 12.5 Mg Capsule 12.5 Mg PO DAILY 30 Days Aspirin 325 Mg Tablet 325 Mg PO [id number] 30 Days Atorvastatin Calcium 20 Mg Tablet 20 Mg PO QHS 30 Days Protonix (Pantoprazole Sodium) 40 Mg Tablet.dr 40 Mg PO DAILYAC 30 Days Novolin N Flexpen (Insulin NPH Human Isophane) 100 Unit/1 Ml Insuln.pen 15 Unit SQ BID Novolin R (Insulin Regular, Human) 100 Unit/1 Ml Vial 7 Unit IJ TID Reported Endocet 10-325 Mg Tablet (Oxycodone Hcl/Acetaminophen) 1 Each Tablet 1 Tab PO PRN TID PRN MDD 3 Tablet(s) 5 Days Gabapentin (Gabapentin) 300 Mg Capsule 300 Mg PO TID Celexa (Citalopram Hydrobromide) 20 Mg Tablet 20 Mg PO DAILY Lisinopril-Hctz 10-12.5 Mg Tab (Lisinopril/Hydrochlorothiazide) 1 Each Tablet 1 Tab PO DAILY Allergies Allergies: Coded Allergies: I S O L A T I O N *CONTACT* (Verified Allergy, Unknown, 01/15/21) mrsa No Known Medication Allergies (Verified Allergy, Unknown, 01/15/21) ROS General: No: Chills, Night Sweats, Fatigue, Malaise, Appetite, Other PSYCHOLOGICAL ROS: YES: Anxiety, Sleep disturbances; No: Behavioral Disorder, Concentration difficultie, Decreased libido, Depression, Disorientation, Hallucinations, Hostility, Irritablity, Memory difficulties, Mood Swings, Obsessive thoughts, Physical abuse, Suicidal ideati on, Other Eyes: No Blurry vision, No Decreased vision, No Double vision, No Dry eyes, No Excessive tearing, No Eye Pain, No Itchy Eyes, No Loss of vision, No Photophobia, No Scotomata, No Uses contacts, No Uses glasses, No Other HEENT: YES: Heacaches; No: Visual Changes, Hearing change, Nasal congestion, Nasal discharge, Oral lesions, Sinus pain, Sore Throat, Epistaxis, Sneezing, Snoring, Tinnitus, Vertigo, Vocal changes, Other Respiratory: No: Cough, Hemoptysis, Orthopnea, Pleuritic Pain, Shortness of breath, SOB with excertion, Sputum Changes, Stridor, Tachypnea, Wheezing, Other Cardiovascular: No Palpitations, No Orthopnea, No Paroxysmal Noc. Dyspnea, No Edema, No Lt Headedness, No Other Gastrointestinal: Yes Nausea; No Vomiting, No Abdominal Pain, No Diarrhea, No Constipation, No Melena, No Hematochezia, No Other Genitourinary: No Dysuria, No Frequency, No Incontinence, No Hematuria, No Retention, No Discharge, No Urgency, No Pain, No Flank Pain, No Other, No , No , No , No , No , No , No Musculoskeletal: Yes Gait Disturbance; No Joint Pain, No Joint Stiffness, No Joint Swelling, No Muscle Pain, No Muscular Weakness, No Pain In:, No Swelling In:, No Other Neurological: Yes Confusion, Yes Impaired Coord/balance, Yes Memory Loss Skin: Yes Dry Skin; No Eczema, No Hair Changes, No Lumps, No Mole Changes, No Mottling, No Nail Changes, No Pruritus, No Rash, No Skin Lesion Changes, No Other, No Acne Physical Exam General: Alert, Cooperative, mild distress, Other (not oriented) HEENT: PERRLA, EOMI Lungs: Clear to auscultation, Normal air movement Heart: S1S2, other Extremities: No cyanosis, No edema Neuro: Sensation intact Psych/Mental Status: Other (confused) Vitals Vitals Vital Signs Date Time Temp Pulse Resp B/P (MAP) Pulse Ox O2 Delivery O2 Flow Rate FiO2 03/24/21 06:34 97.7 78 20 156/79 (104) 98 Room Air 97.7 Labs Labs Laboratory Tests Test 03/24/21 02:50 03/24/21 02:52 03/24/21 03:05 03/24/21 04:50 White Blood Count 8.1 x10^3/uL (4.0-11.0) Red Blood Count 4.75 x10^6/uL (4.30-5.70) Hemoglobin 13.8 g/dL (13.0-17.5) Hematocrit 40.4 % (39.0-53.0) Mean Corpuscular Volume 85 fL (79-100) Mean Corpuscular Hemoglobin 29 pg (25-35) Mean Corpuscular Hemoglobin Concent 34 g/dL (31-37) Red Cell Distribution Width 14.9 % (11.5-14.5) Platelet Count 292 x10^3/uL (140-400) Neutrophils (%) (Auto) 45 % (31-73) Lymphocytes (%) (Auto) 45 % (24-48) Monocytes (%) (Auto) 6 % (0-9) Eosinophils (%) (Auto) 3 % (0-3) Basophils (%) (Auto) 1 % (0-3) Neutrophils # (Auto) 3.7 x10^3/uL (1.8-7.7) Lymphocytes # (Auto) 3.7 x10^3/uL (1.0-4.8) Monocytes # (Auto) 0.5 x10^3/uL (0.0-1.1) Eosinophils # (Auto) 0.2 x10^3/uL (0.0-0.7) Basophils # (Auto) 0.1 x10^3/uL (0.0-0.2) Prothrombin Time 12.0 SEC (11.7-14.0) Prothromb Time International Ratio 0.9 (0.8-1.1) Activated Partial Thromboplast Time 29 SEC (24-38) Sodium Level 138 mmol/L (136-145) Potassium Level 3.7 mmol/L (3.5-5.1) Chloride Level 102 mmol/L (98-107) Carbon Dioxide Level 24 mmol/L (21-32) Anion Gap 12 (6-14) Blood Urea Nitrogen 12 mg/dL (8-26) Creatinine 1.1 mg/dL (0.7-1.3) Estimated GFR (Cockcroft-Gault) 69.0 Glucose Level 363 mg/dL (70-99) Lactic Acid Level 5.7 mmol/L (0.4-2.0) 2.8 mmol/L (0.4-2.0) Calcium Level 9.0 mg/dL (8.5-10.1) Total Bilirubin 0.2 mg/dL (0.2-1.0) Direct Bilirubin 0.1 mg/dL (0.0-0.2) Aspartate Amino Transf (AST/SGOT) 25 U/L (15-37) Alanine Aminotransferase (ALT/SGPT) 46 U/L (16-63) Alkaline Phosphatase 130 U/L (46-116) Ammonia 40 mcmol/L (11-34) Creatine Kinase 90 U/L (39-308) Troponin I High Sensitivity 8 ng/L (4-75) Total Protein 7.7 g/dL (6.4-8.2) Albumin 3.4 g/dL (3.4-5.0) Ethyl Alcohol Level < 10 mg/dL (0-10) Glucose (Fingerstick) 367 mg/dL (70-99) Urine Collection Type U cath Urine Color Yellow Urine Clarity Clear Urine pH 6.5 (<5.0-8.0) Urine Specific [place] >=1.030 (1.000-1.030) Urine Protein 100 mg/dL (NEG-TRACE) Urine Glucose (UA) >=1000 mg/dL (NEG) Urine Ketones (Stick) Negative mg/dL (NEG) Urine Blood Negative (NEG) Urine Nitrite Negative (NEG) Urine Bilirubin Negative (NEG) Urine Urobilinogen Dipstick 1.0 mg/dL (0.2 mg/dL) Urine Leukocyte Esterase Negative (NEG) Urine RBC Occ /HPF (0-2) Urine WBC Rare /HPF (0-4) Urine Squamous Epithelial Cells Occ /LPF Urine Bacteria 0 /HPF (0-FEW) Urine Opiates Screen Neg (NEG) Urine Methadone Screen Neg (NEG) Urine Barbiturates Neg (NEG) Urine Phencyclidine Screen Neg (NEG) Urine Amphetamine/Methamphetamine Neg (NEG) Urine Benzodiazepines Screen Neg (NEG) Urine Cocaine Screen Neg (NEG) Urine Cannabinoids Screen Neg (NEG) Urine Ethyl Alcohol Neg (NEG) Test 03/24/21 05:00 Influenza Type A Antigen Negative (NEGATIVE) Influenza Type B Antigen Negative (NEGATIVE) SARS-CoV-2 Antigen (Rapid) Negative (NEGATIVE) Laboratory Tests Test 03/24/21 02:50 03/24/21 02:52 03/24/21 03:05 03/24/21 04:50 White Blood Count 8.1 x10^3/uL (4.0-11.0) Red Blood Count 4.75 x10^6/uL (4.30-5.70) Hemoglobin 13.8 g/dL (13.0-17.5) Hematocrit 40.4 % (39.0-53.0) Mean Corpuscular Volume 85 fL (79-100) Mean Corpuscular Hemoglobin 29 pg (25-35) Mean Corpuscular Hemoglobin Concent 34 g/dL (31-37) Red Cell Distribution Width 14.9 % (11.5-14.5) Platelet Count 292 x10^3/uL (140-400) Neutrophils (%) (Auto) 45 % (31-73) Lymphocytes (%) (Auto) 45 % (24-48) Monocytes (%) (Auto) 6 % (0-9) Eosinophils (%) (Auto) 3 % (0-3) Basophils (%) (Auto) 1 % (0-3) Neutrophils # (Auto) 3.7 x10^3/uL (1.8-7.7) Lymphocytes # (Auto) 3.7 x10^3/uL (1.0-4.8) Monocytes # (Auto) 0.5 x10^3/uL (0.0-1.1) Eosinophils # (Auto) 0.2 x10^3/uL (0.0-0.7) Basophils # (Auto) 0.1 x10^3/uL (0.0-0.2) Prothrombin Time 12.0 SEC (11.7-14.0) Prothromb Time International Ratio 0.9 (0.8-1.1) Activated Partial Thromboplast Time 29 SEC (24-38) Sodium Level 138 mmol/L (136-145) Potassium Level 3.7 mmol/L (3.5-5.1) Chloride Level 102 mmol/L (98-107) Carbon Dioxide Level 24 mmol/L (21-32) Anion Gap 12 (6-14) Blood Urea Nitrogen 12 mg/dL (8-26) Creatinine 1.1 mg/dL (0.7-1.3) Estimated GFR (Cockcroft-Gault) 69.0 Glucose Level 363 mg/dL (70-99) Lactic Acid Level 5.7 mmol/L (0.4-2.0) 2.8 mmol/L (0.4-2.0) Calcium Level 9.0 mg/dL (8.5-10.1) Total Bilirubin 0.2 mg/dL (0.2-1.0) Direct Bilirubin 0.1 mg/dL (0.0-0.2) Aspartate Amino Transf (AST/SGOT) 25 U/L (15-37) Alanine Aminotransferase (ALT/SGPT) 46 U/L (16-63) Alkaline Phosphatase 130 U/L (46-116) Ammonia 40 mcmol/L (11-34) Creatine Kinase 90 U/L (39-308) Troponin I High Sensitivity 8 ng/L (4-75) Total Protein 7.7 g/dL (6.4-8.2) Albumin 3.4 g/dL (3.4-5.0) Ethyl Alcohol Level < 10 mg/dL (0-10) Glucose (Fingerstick) 367 mg/dL (70-99) Urine Collection Type U cath Urine Color Yellow Urine Clarity Clear Urine pH 6.5 (<5.0-8.0) Urine Specific [place] >=1.030 (1.000-1.030) Urine Protein 100 mg/dL (NEG-TRACE) Urine Glucose (UA) >=1000 mg/dL (NEG) Urine Ketones (Stick) Negative mg/dL (NEG) Urine Blood Negative (NEG) Urine Nitrite Negative (NEG) Urine Bilirubin Negative (NEG) Urine Urobilinogen Dipstick 1.0 mg/dL (0.2 mg/dL) Urine Leukocyte Esterase Negative (NEG) Urine RBC Occ /HPF (0-2) Urine WBC Rare /HPF (0-4) Urine Squamous Epithelial Cells Occ /LPF Urine Bacteria 0 /HPF (0-FEW) Urine Opiates Screen Neg (NEG) Urine Methadone Screen Neg (NEG) Urine Barbiturates Neg (NEG) Urine Phencyclidine Screen Neg (NEG) Urine Amphetamine/Methamphetamine Neg (NEG) Urine Benzodiazepines Screen Neg (NEG) Urine Cocaine Screen Neg (NEG) Urine Cannabinoids Screen Neg (NEG) Urine Ethyl Alcohol Neg (NEG) Test 03/24/21 05:00 Influenza Type A Antigen Negative (NEGATIVE) Influenza Type B Antigen Negative (NEGATIVE) SARS-CoV-2 Antigen (Rapid) Negative (NEGATIVE) VTE Prophylaxis Ordered VTE Prophylaxis Devices: Yes VTE Pharmacological Prophylaxi: Yes Assessment/Plan Assessment/Plan acute metabolic encephalopathy, poss partial seizure, consult neuro Hx OF CVA reported on prior admit Diabetes on insulin, type1, prior hgb A1c 11.9 6 months ago Justifications for Admission Other Justification Acute CVA TATIANA JIMENEZ MD Mar 24, 2021 09:03
[2021-03-24] MEDS ORDERED: GABA600T7 PO (10:02)
[2021-03-24] MEDS ORDERED: SULF1TAB24 PO (10:02)
[2021-03-24 10:15] VITALS: BP 184/85
[2021-03-24] MEDS ORDERED: DEXTROSE 50% 25 GM / 50ML DISP.SYRIN. IV PRN (10:30)
[2021-03-24] MEDS: INSULIN LISPRO 300 UNITS/3 ML VIAL. SQ SCH ×4 (11:30→21:00)
[2021-03-24] MEDS: CITALOPRAM 20 MG TABLET. PO SCH (12:00)
[2021-03-24] MEDS: SMZ/TMP 800/160MG TABLET. PO SCH ×2 (12:00→19:45)
[2021-03-24] MEDS: hydroCHLOROthiazide 12.5 MG CAPSULE PO SCH (12:00)
[2021-03-24] MEDS: LISINOPRIL 10 MG TABLET PO SCH (12:00)
[2021-03-24] MEDS: GABAPENTIN 300 MG CAPSULE. PO SCH ×2 (12:00→19:46)
[2021-03-24] MEDS: AA 4.25 %/CALCIUM/LYTES/D5W 1,000 ML IV SCH (13:28)
[2021-03-24 14:24] VITALS: BP 147/65
--- NOTE | 2021-03-24 15:49 | RAD ---
Exam Date: 03/24/2021 2:18 PM MRI BRAIN WO Indication: Reason: stroke / Spl. Instructions: / History: . TECHNIQUE: Routine multiplanar MR images of the brain were obtained without intravenous contrast. FINDINGS: The ventricles and sulci are normal in size and configuration for the patient's stated age. Abnormal T2/FLAIR signal in the periventricular and subcortical white matter bilaterally is consistent with m icrovascular disease. There is no mass effect, midline shift, extra axial collection, or acute intra cranial hemorrhage. There is no diffusion abnormality to suggest acute infarction. The flow voids a t the base of the brain are within normal limits. The visualized paranasal sinuses, orbits and masto id air cells are within normal limits. No lesion of the skull base or calvarium is seen. IMPRESSION: No evidence for acute intracranial pathology. Mild microvascular disease. Electronically signed by: Kwame Keller MD (03/24/2021 3:47 PM) [id number]
--- NOTE | 2021-03-24 17:32 | CONS ---
DATE OF CONSULTATION: 03/24/2021 REFERRING PHYSICIAN: Ernestina Tony MD REASON FOR CONSULTATION: Stroke. HISTORY OF PRESENT ILLNESS: The patient is a 55-year-old man brought in by EMS because of difficulty with speech and facial drooping. Symptoms were present 30 minutes prior to arrival. In the Emergency Room; however, symptoms improved and were nonfocal. He complained of pain throughout his body, but nothing focal. His speech fluctuated with word finding difficulty and stuttering and at other times, it was fairly fluent. He was not noted to have had any sensory loss. He underwent an emergent CT, which was negative. There was no seizure activity noted. He was admitted for further observation. PAST MEDICAL HISTORY: 1. The patient was seen by Neurology twice in 08/2020 for neurologic symptoms concerning for stroke. On those occasions, MRIs were performed and were not revealing. 2. Diabetes. 3. Hypertension. 4. The patient reports history of previous stroke in 2019 when he lived in [place]. 5. Appendectomy. 6. Cholecystectomy. 7. Bipolar disorder. ALLERGIES: NO KNOWN ALLERGIES TO DRUGS. MEDICATIONS PRIOR TO ADMISSION: Atorvastatin 20 mg, citalopram 20 mg, gabapentin 600 mg 3 times per day, insulin, lisinopril/hydrochlorothiazide and Bactrim. FAMILY HISTORY: Diabetes, hypertension and stroke. SOCIAL HISTORY: He has been for 30 years. He has 5 daughters. He does not drink alcohol. He does smoke marijuana. He has not been vaccinated against COVID. He is on disability. His does not work. They live in low income housing. REVIEW OF SYSTEMS: He does complain of headache. There has been no change of vision or hearing. He has had trouble with talking. He has not had cough, cold or shortness of breath. He denies fever or rash. He frequently has diarrhea. No genitourinary complaint. He does complain of left sided numbness. He has generalized weakness. He has had difficulty with walking correction. At home, he walks with a cane and now he is in a wheelchair. PHYSICAL EXAMINATION: VITAL SIGNS: The blood pressure was 184/85, pulse 71, respirations 18, temperature 97.9 degrees Fahrenheit. Oximetry was 97% on room air. His weight was 84.5 kilograms, height 68 inches with a calculated body mass index of 28.3. GENERAL: He was alert, awake and cooperative. NEUROLOGIC: Speech was unusual. He held his left mouth in funny positions at times. Generally, he was able to get his words and ideas out without much difficulty. There was occasional stuttering, but this was minimal. He followed commands well. Examination of the cranial nerves revealed visual langford were full to confrontation. Extraocular movements were intact. The eyes were conjugate. Pursuit movements were smooth and saccadic eye movements were without dysmetria. Facial sensation was intact, although at times he said they were shading to sharp on the left. Vibratory sense just across midline in the face was better perceived in the center. Muscles of mastication were powerful symmetrically. Facial expression fluctuated. He held his left mouth tightly shut, but not the right. When distracted, it did appear that his mouth was symmetric. Hearing was intact to finger rub. The palate arched symmetrically and the tongue was midline with full motion. He did shoulder shrug symmetrically, but with minimal effort. Muscle bulk and tone was normal. Initially, he clenched his fist, but when I reduced it, there was no increased tone. Tone was absolutely normal in the arms. Power testing was difficult because his effort was minimal, but power appeared symmetric. The same was true with his legs. He was able to raise each foot an inch or so off the bed with a straight leg raise, but it took him tremendous effort in a great deal of time to do so. Same was true with knee flexion and dorsi and plantar flexion. Reflexes were 2/4 in the upper extremities, but absent at knees and ankles. Toes were not upgoing. Coordination testing with [id number] was well performed bilaterally without ataxia. He was too weak to do [id number]. He did fine motor movements slow, but accurately with his hands. Sensory exam revealed shading in the left arm to sharp. Proprioception was off almost 100% of the time. He said the opposite of which way I was going consistently. Vibratory sense was well perceived in both hands. In the lower extremities, there was sensory shading to vibratory sense, pain and cold thermal. He did not perceive pain at all in the left leg, but he did perceive cold thermal. Vibratory sense across the sternum was better perceived on the right than the left, just across midline. Gait was not testable. EXTREMITIES: Peripheral pulses were symmetric in the hands and feet. There was no edema or cyanosis. LABORATORY RESULTS: CBC was performed 03/24/2021 revealing a normal white blood cell count, hemoglobin, hematocrit and platelet count. Chemistries were performed on 03/24/2021. This revealed electrolytes, BUN and creatinine. The GFR calculated at 69. Glucose was elevated to 363. Calcium was normal. Lactic acid on admission was elevated to 5.7. Ammonia level was 40. CPK was not elevated. Follow up lactic acid was still elevated at 2.8 and after another 4-hour interval, was down to 1.1. Liver enzymes were elevated with alkaline phosphatase only at 130. The remainder normal. PT/INR was 0.9 and PTT was 29. Urine drug screen was negative and alcohol level was not detected. Influenza antigen was negative and SARS-CoV-2 antigen rapid test was negative with the PCR was pending. Urinalysis performed 03/24/2021, revealed a very concentrated urine with a specific gravity greater than 1.030. A 100 mg/dL of protein and greater than 1000 of glucose. There were rare white cells and occasional squamous epithelial cells. IMAGING RESULTS: CT scan of the head was performed without contrast on 03/24/2021, revealing no acute intracranial process. Chest x-ray was performed on 03/24/2021, revealing no acute cardiopulmonary process. IMPRESSION: The patient is a 55-year-old man with unusual constellation of symptoms and complaints. The etiology is not clear, but I suspect there is a strong psychiatric component to his symptoms. He was seen twice in 08/[address] Johnson. MRIs at that time did not reveal an acute process. RECOMMENDATIONS: I will repeat the MRI of the head one more time without contrast, to look for an acute process. If this was negative, then I would strongly suggest he start working again with Psychiatry to get his underlying psychiatric disorder under better control. I appreciate being involved in his care. GRETCHEN DR: Jimena TID: [id number] CC: Volodymyr Johnson MD
[2021-03-24 18:55] VITALS: BP 145/70
[2021-03-24] MEDS: ATORVASTATIN CALCIUM 20 MG TABLET PO SCH (19:45)
[2021-03-24] MEDS: INSULIN GLARGINE SYRINGE. SQ SCH (20:28)
[2021-03-24 22:38] VITALS: BP 181/91
[2021-03-25 02:45] VITALS: BP 193/96
[2021-03-25] MEDS ORDERED: hydrALAZINE 20 MG/ML VIAL. IVP PRN (02:45)
[2021-03-25] MEDS: AA 4.25 %/CALCIUM/LYTES/D5W 1,000 ML IV SCH (03:15)
[2021-03-25 04:03] LABS: BASO # 0.1 x10^3/uL (0.0-0.2); BASO % 1 % (0-3); EOS # 0.2 x10^3/uL (0.0-0.7); EOS % 2 % (0-3); HEMOGLOBIN 13.1 g/dL (13.0-17.5); LYMPH # 2.8 x10^3/uL (1.0-4.8); LYMPH % 32 % (24-48); MEAN CORPUSCULAR HEMOGLOBIN 29 pg (25-35); MEAN CORPUSCULAR HGB CONC 34 g/dL (31-37); MEAN CORPUSCULAR VOLUME 85 fL (79-100); MONO # 0.6 x10^3/uL (0.0-1.1); MONO % 7 % (0-9); NEUT % 58 % (31-73); PLATELET COUNT 271 x10^3/uL (140-400); RED BLOOD COUNT 4.59 x10^6/uL (4.30-5.70); WHITE BLOOD COUNT 8.6 x10^3/uL (4.0-11.0)
[2021-03-25 04:21] LABS: ALBUMIN 2.9 g/dL (3.4-5.0); ALBUMIN/GLOBULIN RATIO 0.8 (1.0-1.7); CALCIUM 8.4 mg/dL (8.5-10.1); CREATININE 0.7 mg/dL (0.7-1.3); GFR 116.2; POTASSIUM 3.8 mmol/L (3.5-5.1); TOTAL BILIRUBIN 0.4 mg/dL (0.2-1.0); TOTAL PROTEIN 6.6 g/dL (6.4-8.2)
[2021-03-25] MEDS: INSULIN LISPRO 300 UNITS/3 ML VIAL. SQ SCH ×7 (07:30→23:01)
[2021-03-25 07:59] VITALS: BP 184/81
[2021-03-25] MEDS: INSULIN GLARGINE SYRINGE. SQ SCH ×2 (09:00→23:00)
[2021-03-25] MEDS: SMZ/TMP 800/160MG TABLET. PO SCH ×2 (09:00→23:03)
[2021-03-25] MEDS: GABAPENTIN 300 MG CAPSULE. PO SCH ×3 (09:00→22:59)
[2021-03-25] MEDS: LISINOPRIL 10 MG TABLET PO SCH (09:00)
[2021-03-25] MEDS: hydroCHLOROthiazide 12.5 MG CAPSULE PO SCH (09:00)
[2021-03-25] MEDS: CITALOPRAM 20 MG TABLET. PO SCH (09:00)
[2021-03-25 11:14] VITALS: BP 151/90
[2021-03-25 15:15] VITALS: BP 159/83
--- NOTE | 2021-03-25 15:29 | PDOC ---
[facility] PROGRESS NOTE Date of Service DOS: DATE: 03/25/21 TIME: 15:27 Chief Complaint Chief Complaint acute metabolic encephalopathy, poss partial seizure, consult neuro Hx OF CVA reported on prior admit Diabetes on insulin, type1, prior hgb A1c 11.9 weakness and debility History of Present Illness History of Present Illness htn, tachy, poor control, add coreg, Vitals/I&O Vitals/I&O: Vital Signs Date Time Temp Pulse Resp B/P (MAP) Pulse Ox O2 Delivery O2 Flow Rate FiO2 03/25/21 15:15 96.8 106 20 159/83 (108) 98 Room Air 96.8 I & O 03/24/21 03/24/21 03/25/21 15:00 23:00 07:00 Intake Total 0 ml 0 ml Output Total 750 ml 900 ml Balance 0 ml -750 ml -900 ml Physical Exam Physical Exam: more calm and oriented, General: Alert, Oriented X3, Cooperative, No acute distress, Other (not oriented) Lungs: Clear, Other Extremities: No cyanosis, No edema Skin: No breakdown Labs Labs: Laboratory Tests Test 03/24/21 20:25 03/25/21 03:40 03/25/21 08:54 03/25/21 11:29 Glucose (Fingerstick) 164 mg/dL (70-99) 268 mg/dL (70-99) 354 mg/dL (70-99) White Blood Count 8.6 x10^3/uL (4.0-11.0) Red Blood Count 4.59 x10^6/uL (4.30-5.70) Hemoglobin 13.1 g/dL (13.0-17.5) Hematocrit 39.0 % (39.0-53.0) Mean Corpuscular Volume 85 fL (79-100) Mean Corpuscular Hemoglobin 29 pg (25-35) Mean Corpuscular Hemoglobin Concent 34 g/dL (31-37) Red Cell Distribution Width 15.0 % (11.5-14.5) Platelet Count 271 x10^3/uL (140-400) Neutrophils (%) (Auto) 58 % (31-73) Lymphocytes (%) (Auto) 32 % (24-48) Monocytes (%) (Auto) 7 % (0-9) Eosinophils (%) (Auto) 2 % (0-3) Basophils (%) (Auto) 1 % (0-3) Neutrophils # (Auto) 5.0 x10^3/uL (1.8-7.7) Lymphocytes # (Auto) 2.8 x10^3/uL (1.0-4.8) Monocytes # (Auto) 0.6 x10^3/uL (0.0-1.1) Eosinophils # (Auto) 0.2 x10^3/uL (0.0-0.7) Basophils # (Auto) 0.1 x10^3/uL (0.0-0.2) Sodium Level 136 mmol/L (136-145) Potassium Level 3.8 mmol/L (3.5-5.1) Chloride Level 104 mmol/L (98-107) Carbon Dioxide Level 23 mmol/L (21-32) Anion Gap 9 (6-14) Blood Urea Nitrogen 14 mg/dL (8-26) Creatinine 0.7 mg/dL (0.7-1.3) Estimated GFR (Cockcroft-Gault) 116.2 BUN/Creatinine Ratio 20 (6-20) Glucose Level 194 mg/dL (70-99) Calcium Level 8.4 mg/dL (8.5-10.1) Total Bilirubin 0.4 mg/dL (0.2-1.0) Aspartate Amino Transf (AST/SGOT) 24 U/L (15-37) Alanine Aminotransferase (ALT/SGPT) 38 U/L (16-63) Alkaline Phosphatase 97 U/L (46-116) Total Protein 6.6 g/dL (6.4-8.2) Albumin 2.9 g/dL (3.4-5.0) Albumin/Globulin Ratio 0.8 (1.0-1.7) Review of Systems Review of Systems: no n.v.d Comment Review of Relevant I have reviewed the following items jackie (where applicable) has been applied. Medications: Current Medications Medications (Trade) Dose Ordered Sig/Rock Route PRN Reason Start Time Stop Time Status Last Admin Dose Admin Insulin Glargine (Lantus Syringe) 15 unit BID SQ 03/24/21 21:00 03/24/21 20:28 Hydralazine HCl (Apresoline Inj) 10 mg PRN Q4HRS PRN IVP ELEVATED BP, SEE COMMENTS 03/25/21 02:45 03/25/21 03:16 Justifications for Admission Other Justification Acute CVA TATIANA JIMENEZ MD Mar 25, 2021 15:29
[2021-03-25] MEDS: CARVEDILOL 3.125 MG TABLET. PO SCH (17:27)
[2021-03-25 19:24] VITALS: BP 141/85
[2021-03-25] MEDS ORDERED: ZINC OXIDE 20% TOPICAL OINTMENT 28GM TUBE. TP PRN (22:00)
[2021-03-25 22:41] VITALS: BP 160/82
[2021-03-25] MEDS: ATORVASTATIN CALCIUM 20 MG TABLET PO SCH (23:02)
[2021-03-25] MEDS: traMADol 50 MG TABLET PO PRN (23:02)
[2021-03-26 02:45] VITALS: BP 131/74
[2021-03-26 06:29] VITALS: BP 136/81
[2021-03-26] MEDS: hydroCHLOROthiazide 12.5 MG CAPSULE PO SCH (08:15)
[2021-03-26] MEDS: LISINOPRIL 10 MG TABLET PO SCH (08:15)
[2021-03-26] MEDS: SMZ/TMP 800/160MG TABLET. PO SCH ×2 (08:15→22:43)
[2021-03-26] MEDS: CARVEDILOL 3.125 MG TABLET. PO SCH ×2 (08:16→17:04)
[2021-03-26] MEDS: GABAPENTIN 300 MG CAPSULE. PO SCH ×3 (08:16→22:42)
[2021-03-26] MEDS: CITALOPRAM 20 MG TABLET. PO SCH (08:16)
[2021-03-26] MEDS: INSULIN GLARGINE SYRINGE. SQ SCH ×2 (08:24→22:45)
[2021-03-26] MEDS: INSULIN LISPRO 300 UNITS/3 ML VIAL. SQ SCH ×7 (08:24→21:00)
[2021-03-26] MEDS: traMADol 50 MG TABLET PO PRN ×2 (09:31→22:42)
[2021-03-26 11:00] VITALS: BP 138/86
--- NOTE | 2021-03-26 11:50 | PDOC ---
PROGRESS NOTES Date of Service DATE: 03/26/21 TIME: 11:44 Assessment Acute issues of dysarthria, facial drooping, total body pain, stuttering of his speech, penile pain. Brain MRI again is negative. No obvious metabolic issue besides hyperglycemia. Urine drug screen was negative. Diabetic neuropathy, otherwise I find no organic neurological issue. 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 I treated him with a prednisone taper. MRI of the brain both times was negative. He did not return to the office for follow-up. Plan I told the patient that we do not have a urologist on staff, the photoengraver will evaluate the penile pain and decide whether he needs inpatient or outpatient urological intervention. No additional neurological studies or treatment needed. Continue gabapentin. Subjective Complains of multiple issues as described above. Objective Vital Signs Date Time Temp Pulse Resp B/P (MAP) Pulse Ox O2 Delivery O2 Flow Rate FiO2 03/26/21 11:00 97.8 82 18 138/86 (103) 97 Room Air 97.8 Intake and Output 03/26/21 07:00 Intake Total 480 ml Output Total 400 ml Balance 80 ml Intake Oral 480 ml Output Urine Total 400 ml # Bowel Movements 3 PHYSICAL EXAM Alert. Oriented to time, place and person. PERRL. EOMI. CN: No focal findings Muscle tone: normal. Muscle strength: 4/5 DTR: 1+ Plantar reflex: Flexor Gait: A little unsteady. Sensory exam: Stocking loss. No cerebellar signs elicited. Review of Relevant I have reviewed the following items jackie (where applicable) has been applied. Labs Laboratory Tests Test 03/24/21 20:25 03/25/21 03:40 03/25/21 08:54 03/25/21 11:29 Glucose (Fingerstick) 164 mg/dL (70-99) 268 mg/dL (70-99) 354 mg/dL (70-99) White Blood Count 8.6 x10^3/uL (4.0-11.0) Red Blood Count 4.59 x10^6/uL (4.30-5.70) Hemoglobin 13.1 g/dL (13.0-17.5) Hematocrit 39.0 % (39.0-53.0) Mean Corpuscular Volume 85 fL (79-100) Mean Corpuscular Hemoglobin 29 pg (25-35) Mean Corpuscular Hemoglobin Concent 34 g/dL (31-37) Red Cell Distribution Width 15.0 % (11.5-14.5) Platelet Count 271 x10^3/uL (140-400) Neutrophils (%) (Auto) 58 % (31-73) Lymphocytes (%) (Auto) 32 % (24-48) Monocytes (%) (Auto) 7 % (0-9) Eosinophils (%) (Auto) 2 % (0-3) Basophils (%) (Auto) 1 % (0-3) Neutrophils # (Auto) 5.0 x10^3/uL (1.8-7.7) Lymphocytes # (Auto) 2.8 x10^3/uL (1.0-4.8) Monocytes # (Auto) 0.6 x10^3/uL (0.0-1.1) Eosinophils # (Auto) 0.2 x10^3/uL (0.0-0.7) Basophils # (Auto) 0.1 x10^3/uL (0.0-0.2) Sodium Level 136 mmol/L (136-145) Potassium Level 3.8 mmol/L (3.5-5.1) Chloride Level 104 mmol/L (98-107) Carbon Dioxide Level 23 mmol/L (21-32) Anion Gap 9 (6-14) Blood Urea Nitrogen 14 mg/dL (8-26) Creatinine 0.7 mg/dL (0.7-1.3) Estimated GFR (Cockcroft-Gault) 116.2 BUN/Creatinine Ratio 20 (6-20) Glucose Level 194 mg/dL (70-99) Calcium Level 8.4 mg/dL (8.5-10.1) Total Bilirubin 0.4 mg/dL (0.2-1.0) Aspartate Amino Transf (AST/SGOT) 24 U/L (15-37) Alanine Aminotransferase (ALT/SGPT) 38 U/L (16-63) Alkaline Phosphatase 97 U/L (46-116) Total Protein 6.6 g/dL (6.4-8.2) Albumin 2.9 g/dL (3.4-5.0) Albumin/Globulin Ratio 0.8 (1.0-1.7) Test 03/25/21 16:51 03/25/21 20:23 03/26/21 07:11 03/26/21 11:41 Glucose (Fingerstick) 360 mg/dL (70-99) 324 mg/dL (70-99) 333 mg/dL (70-99) 212 mg/dL (70-99) Laboratory Tests Test 03/25/21 16:51 03/25/21 20:23 03/26/21 07:11 03/26/21 11:41 Glucose (Fingerstick) 360 mg/dL (70-99) 324 mg/dL (70-99) 333 mg/dL (70-99) 212 mg/dL (70-99) Microbiology 03/24/21 Blood Culture - Preliminary, Resulted NO GROWTH AFTER 2 DAYS Medications Current Medications Sodium Chloride 1,000 ml @ 1,000 mls/hr 1X ONCE IV Last administered on 03/24/21at 04:15; Start 03/24/21 at 04:15; Stop 03/24/21 at 05:14; Status DC Ketorolac Tromethamine (Toradol 15mg Vial) 15 mg 1X ONCE IVP Last administered on 03/24/21at 13:05; Start 03/24/21 at 05:30; Stop 03/24/21 at 05:31; Status DC Sodium Chloride 1,000 ml @ 75 mls/hr 1X ONCE IV Last administered on 03/24/21at 08:15; Start 03/24/21 at 05:30; Stop 03/24/21 at 18:50; Status DC Atorvastatin Calcium (Lipitor) 20 mg QHS PO Last administered on 03/25/21at 23 :02; Start 03/24/21 at 21:00 Citalopram Hydrobromide (CeleXA) 20 mg DAILY PO Last administered on 03/26/21at 08:16; Start 03/24/21 at 12:00 Insulin Human Lispro (HumaLOG) 7 units TIDWMEALS SQ ; Start 03/24/21 at 12:00; Stop 03/25/21 at 14:07; Status DC Trimethoprim/ Sulfamethoxazole (Bactrim Ds) 1 tab BID PO Last administered on 03/26/21at 08:15; Start 03/24/21 at 12:00 Gabapentin (Neurontin) 600 mg TID PO Last administered on 03/26/21at 08:16; Start 03/24/21 at 12:00 Insulin Glargine (Lantus Syringe) 15 unit BID SQ Last administered on 03/26/21at 08:24; Start 03/24/21 at 21:00 Lisinopril (Prinivil) 10 mg DAILY PO Last administered on 03/26/21at 08:15; Start 03/24/21 at 12:00 Insulin Human Lispro (HumaLOG) 0-5 UNITS QIDACHS SQ Last administered on 03/26/21at 08:24; Start 03/24/21 at 11:30 Dextrose (Dextrose 50%-Water Syringe) 12.5 gm PRN Q15MIN PRN IV SEE COMMENTS; Start 03/24/21 at 10:30 Hydrochlorothiazide (Microzide) 12.5 mg DAILY PO Last administered on 03/26/21at 08:15; Start 03/24/21 at 12:00 Amino Acids/ Electrolytes/ Dextrose 1,000 ml @ 80 mls/hr [id number] IV Last administered on 03/25/21at 03:15; Start 03/24/21 at 12:30; Stop 03/25/21 at 14:03; Status DC Hydralazine HCl (Apresoline Inj) 10 mg PRN Q4HRS PRN IVP ELEVATED BP, SEE COMMENTS Last administered on 03/25/21at 03:16; Start 03/25/21 at 02:45 Insulin Human Lispro (HumaLOG) 12 units TIDWMEALS SQ Last administered on 03/26/21at 09:24; Start 03/25/21 at 17:00 Carvedilol (Coreg) 3.125 mg BIDWMEALS PO Last administered on 03/26/21at 08:16; Start 03/25/21 at 17:00 Acetaminophen (Tylenol) 650 mg PRN Q6HRS PRN PO MILD PAIN / TEMP > 100.3'F; Start 03/25/21 at 22:00 Olanzapine (ZyPREXA ZYDIS) 5 mg PRN BID PRN PO ANXIETY / AGITATION; Start 03/25/21 at 22:00 Tramadol HCl (Ultram) 50 mg PRN Q6HRS PRN PO PAIN Last administered on 03/26/21at 09:31; Start 03/25/21 at 22:00 Ketorolac Tromethamine (Toradol 30mg Vial) 30 mg PRN Q6HRS PRN IVP INFLAMMATION; Start 03/25/21 at 22:00 Zinc Oxide (Zinc Oxide 20% Topical) 1 nikolai PRN Q4HRS PRN TP SKIN PROTECTION; Start 03/25/21 at 22:00 Active Scripts Active Atorvastatin Calcium 20 Mg Tablet 20 Mg PO QHS 30 Days Novolin N Flexpen (Insulin NPH Human Isophane) 100 Unit/1 Ml Insuln.pen 15 Unit SQ BID Novolin R (Insulin Regular, Human) 100 Unit/1 Ml Vial 7 Unit IJ TID Reported Bactrim Ds Tablet (Sulfamethoxazole/Trimethoprim) 1 Each Tablet 1 Tab PO BID 10 Days Gabapentin 600 Mg Tablet 600 Mg PO TID Celexa (Citalopram Hydrobromide) 20 Mg Tablet 20 Mg PO DAILY Lisinopril-Hctz 10-12.5 Mg Tab (Lisinopril/Hydrochlorothiazide) 1 Each Tablet 1 Tab PO DAILY Vitals/I & O Vital Sign - Last 24 Hours 03/25/21 03/25/21 03/25/21 03/25/21 15:15 17:27 19:24 20:00 Temp 96.8 98.0 96.8 98.0 Pulse 106 106 104 Resp 20 18 B/P (MAP) 159/83 (108) 159/83 141/85 (103) Pulse Ox 98 98 O2 Delivery Room Air Room Air Room Air 03/25/21 03/25/21 03/25/21 03/26/21 22:41 23:02 23:35 02:45 Temp 98.7 98.4 98.7 98.4 Pulse 86 85 Resp 16 20 20 20 B/P (MAP) 160/82 (108) 131/74 (93) Pulse Ox 96 96 98 98 O2 Delivery Room Air Room Air Room Air Room Air 03/26/21 03/26/21 03/26/21 03/26/21 06:29 08:00 08:15 08:16 Temp 98.2 98.2 Pulse 80 80 80 Resp 18 B/P (MAP) 136/81 (99) 136/81 136/81 Pulse Ox 96 O2 Delivery Room Air Room Air 03/26/21 03/26/21 03/26/21 09:31 10:01 11:00 Temp 97.8 97.8 Pulse 82 Resp 17 18 B/P (MAP) 138/86 (103) Pulse Ox 96 97 O2 Delivery Room Air Room Air Room Air Intake and Output 03/25/21 03/25/21 03/26/21 15:00 23:00 07:00 Intake Total 0 ml 480 ml 0 ml Output Total 400 ml Balance 0 ml 480 ml -400 ml Images MRI BRAIN WO, 03/24 Indication: Reason: stroke / Spl. Instructions: / History: . TECHNIQUE: Routine multiplanar MR images of the brain were obtained without intravenous contrast. FINDINGS: The ventricles and sulci are normal in size and configuration for the patient's stated age. Abnormal T2/FLAIR signal in the periventricular and subcortical white matter bilaterally is consistent with microvascular disease. There is no mass effect, midline shift, extra axial collection, or acute intracranial hemorrhage. There is no diffusion abnormality to suggest acute infarction. The flow voids at the base of the brain are within normal limits. The visualized paranasal sinuses, orbits and mastoid air cells are within normal limits. No lesion of the skull base or calvarium is seen. IMPRESSION: No evidence for acute intracranial pathology. Mild microvascular disease. Justicifation of Admission Dx: Justifications for Admission: Justification of Admission Dx: Yes GRIS TOLLIVER MD Mar 26, 2021 11:49
[2021-03-26] MEDS: KETOROLAC 30 MG/ML VIAL. IVP PRN ×2 (12:00→22:42)
--- NOTE | 2021-03-26 12:50 | NUR ---
Delgadillo catheter removed from patient without complaints, penis is red and swollen from original placement date.
[2021-03-26] MEDS: ACETAMINOPHEN 325 MG TABLET. PO PRN (14:00)
[2021-03-26] MEDS ORDERED: HYDR12.575 PO (14:19)
[2021-03-26] MEDS ORDERED: CARV3.1210 PO (14:19)
--- NOTE | 2021-03-26 14:22 | DISCH ---
DISCHARGE INSTRUCTIONS Condition on Discharge Condition on Discharge: Guarded Activity After Discharge Activity Instructions for Disc: Activity as tolerated Lifting Instructions after Dis: No heavy lifting, No pulling or pushing Exercise Instruction after Dis: Progress as tolerated Driving Instructions after Dis: Do not drive Weight Bearing Status after Di: As tolerated Diet after Discharge Diet after Discharge: Diabetic No Calorie Level Diet Texture: Regular Liquid Texture: Thin Liquid Swallowing Supervision: None needed Checks after Discharge Checks after discharge: Check blood press - daily, Check blood sugar, ac/hs, Check your Temp as needed, Weigh Yourself Daily Contacting the DR. after DC Call your doctor for: If your condition worsens Follow-Up Follow up with: PCP within 2 weeks of discharge Follow Up With: Neurology as needed Treatment/Equipment after DC Adaptive Equipment Issued: None, Front wheeled walker KVNG IVY MD Mar 26, 2021 14:21
[2021-03-26 15:08] VITALS: BP 104/56
--- NOTE | 2021-03-26 15:37 | NUR ---
SS following for discharge planning. SS reviewed pt chart and discussed with pt RN. Pt is from home with spouse and is currently on room air. COVID19 negative. Pt had ryan removed today. Currently awaiting on urine output. Discharge plan is currently to home when medically ready for discharge. SS will continue to follow for discharge planning.
[2021-03-26] MEDS ORDERED: MORPHINE SULFATE 2 MG/ML INJ. IV PRN ×2 (16:15→16:30)
[2021-03-26] MEDS ORDERED: LIDOCAINE 2% JELLY 6ML IN APPLICATOR. MM ONE (16:30)
--- NOTE | 2021-03-26 16:43 | PDOC ---
[facility] PROGRESS NOTE Date of Service DOS: DATE: 03/26/21 TIME: 16:41 Chief Complaint Chief Complaint acute metabolic encephalopathy, poss partial seizure, consult neuro Hx OF CVA reported on prior admit Diabetes on insulin, type1, prior hgb A1c 11.9 weakness and debility paraphimosis History of Present Illness History of Present Illness htn, tachy, poor control, add coreg, 03/26/21 No acute events overnight. Mental status improved. penile pain due to paraphimosis. Bedside reduction completed and foreskin retracted. Vitals/I&O Vitals/I&O: Vital Signs Date Time Temp Pulse Resp B/P (MAP) Pulse Ox O2 Delivery O2 Flow Rate FiO2 03/26/21 16:31 98 Room Air 03/26/21 15:08 98.0 92 18 104/56 (72) 98.0 I & O 03/25/21 03/25/21 03/26/21 15:00 23:00 07:00 Intake Total 0 ml 480 ml 0 ml Output Total 400 ml Balance 0 ml 480 ml -400 ml Physical Exam Physical Exam: more calm and oriented, General: Alert, Oriented X3, Cooperative, No acute distress, Other (not oriented) Lungs: Clear, Other Extremities: No cyanosis, No edema Skin: No breakdown Labs Labs: Laboratory Tests Test 03/25/21 16:51 03/25/21 20:23 03/26/21 07:11 03/26/21 11:41 Glucose (Fingerstick) 360 mg/dL (70-99) 324 mg/dL (70-99) 333 mg/dL (70-99) 212 mg/dL (70-99) Comment Review of Relevant I have reviewed the following items jackie (where applicable) has been applied. Medications: Current Medications Medications (Trade) Dose Ordered Sig/Rock Route PRN Reason Start Time Stop Time Status Last Admin Dose Admin Insulin Human Lispro (HumaLOG) 12 units TIDWMEALS SQ 03/25/21 17:00 03/26/21 12:10 Carvedilol (Coreg) 3.125 mg BIDWMEALS PO 03/25/21 17:00 03/26/21 08:16 Acetaminophen (Tylenol) 650 mg PRN Q6HRS PRN PO MILD PAIN / TEMP > 100.3'F 03/25/21 22:00 03/26/21 14:00 Tramadol HCl (Ultram) 50 mg PRN Q6HRS PRN PO PAIN 03/25/21 22:00 03/26/21 09:31 Ketorolac Tromethamine (Toradol 30mg Vial) 30 mg PRN Q6HRS PRN IVP INFLAMMATION 03/25/21 22:00 03/26/21 12:00 Morphine Sulfate (Morphine Sulfate) 2 mg 1X PRN IV PAIN 03/26/21 16:15 03/26/21 16:31 Justifications for Admission Other Justification Acute CVA KVNG IVY MD Mar 26, 2021 16:43
[2021-03-26 19:28] VITALS: BP 130/67
[2021-03-26] MEDS: ATORVASTATIN CALCIUM 20 MG TABLET PO SCH (22:43)
[2021-03-26 22:59] VITALS: BP 148/74
[2021-03-27 03:21] VITALS: BP 125/67
[2021-03-27 07:00] VITALS: BP 123/70
[2021-03-27] MEDS: CARVEDILOL 3.125 MG TABLET. PO SCH (08:17)
[2021-03-27] MEDS: LISINOPRIL 10 MG TABLET PO SCH (08:18)
[2021-03-27] MEDS: SMZ/TMP 800/160MG TABLET. PO SCH (08:18)
[2021-03-27] MEDS: hydroCHLOROthiazide 12.5 MG CAPSULE PO SCH (08:18)
[2021-03-27] MEDS: CITALOPRAM 20 MG TABLET. PO SCH (08:18)
[2021-03-27] MEDS: ACETAMINOPHEN 325 MG TABLET. PO PRN (08:19)
[2021-03-27] MEDS: GABAPENTIN 300 MG CAPSULE. PO SCH ×2 (08:19→13:36)
[2021-03-27] MEDS: INSULIN LISPRO 300 UNITS/3 ML VIAL. SQ SCH ×4 (08:25→12:24)
[2021-03-27] MEDS: INSULIN GLARGINE SYRINGE. SQ SCH (08:26)
[2021-03-27 10:28] VITALS: BP 104/62
--- NOTE | 2021-03-27 10:31 | PDOC ---
PROGRESS NOTES Date of Service DATE: 03/27/21 TIME: 10:30 Assessment Acute issues of dysarthria, facial drooping, total body pain, stuttering of his speech, penile pain. Brain MRI again is negative. No obvious metabolic issue besides hyperglycemia. Urine drug screen was negative. Diabetic neuropathy, otherwise I find no organic neurological issue. 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 I treated him with a prednisone taper. MRI of the brain both times was negative. He did not return to the office for follow-up. Plan No additional neurological studies or treatment needed. Okay for discharge Continue gabapentin. Subjective He is feeling a lot better and wants to go home Objective Vital Signs Date Time Temp Pulse Resp B/P (MAP) Pulse Ox O2 Delivery O2 Flow Rate FiO2 03/27/21 10:28 98.1 75 16 104/62 (76) 100 Room Air 98.1 Intake and Output 03/27/21 07:00 Intake Total 1220 ml Output Total 900 ml Balance 320 ml Intake Oral 1220 ml Output Urine Total 900 ml # Bowel Movements 1 PHYSICAL EXAM Alert. Oriented to time, place and person. PERRL. EOMI. CN: No focal findings Muscle tone: normal. Muscle strength: 4/5 DTR: 1+ Plantar reflex: Flexor Gait: Not tested Sensory exam: Stocking loss. No cerebellar signs elicited. Review of Relevant I have reviewed the following items jackie (where applicable) has been applied. Labs Laboratory Tests Test 03/25/21 11:29 03/25/21 16:51 03/25/21 20:23 03/26/21 07:11 Glucose (Fingerstick) 354 mg/dL (70-99) 360 mg/dL (70-99) 324 mg/dL (70-99) 333 mg/dL (70-99) Test 03/26/21 11:41 03/26/21 16:46 03/26/21 20:56 03/27/21 07:42 Glucose (Fingerstick) 212 mg/dL (70-99) 171 mg/dL (70-99) 240 mg/dL (70-99) 229 mg/dL (70-99) Laboratory Tests Test 03/26/21 11:41 03/26/21 16:46 03/26/21 20:56 03/27/21 07:42 Glucose (Fingerstick) 212 mg/dL (70-99) 171 mg/dL (70-99) 240 mg/dL (70-99) 229 mg/dL (70-99) Microbiology 03/24/21 Blood Culture - Preliminary, Resulted NO GROWTH AFTER 3 DAYS Medications Current Medications Sodium Chloride 1,000 ml @ 1,000 mls/hr 1X ONCE IV Last administered on 03/24/21at 04:15; Start 03/24/21 at 04:15; Stop 03/24/21 at 05:14; Status DC Ketorolac Tromethamine (Toradol 15mg Vial) 15 mg 1X ONCE IVP Last administered on 03/24/21at 13:05; Start 03/24/21 at 05:30; Stop 03/24/21 at 05:31; Status DC Sodium Chloride 1,000 ml @ 75 mls/hr 1X ONCE IV Last administered on 03/24/21at 08:15; Start 03/24/21 at 05:30; Stop 03/24/21 at 18:50; Status DC Atorvastatin Calcium (Lipitor) 20 mg QHS PO Last administered on 03/26/21at 22:43; Start 03/24/21 at 21:00 Citalopram Hydrobromide (CeleXA) 20 mg DAILY PO Last administered on 03/27/21at 08:18; Start 03/24/21 at 12:00 Insulin Human Lispro (HumaLOG) 7 units TIDWMEALS SQ ; Start 03/24/21 at 12:00; Stop 03/25/21 at 14:07; Status DC Trimethoprim/ Sulfamethoxazole (Bactrim Ds) 1 tab BID PO Last administered on 03/27/21at 08:18; Start 03/24/21 at 12:00 Gabapentin (Neurontin) 600 mg TID PO Last administered on 03/27/21at 08:19; Start 03/24/21 at 12:00 Insulin Glargine (Lantus Syringe) 15 unit BID SQ Last administered on 03/27/21at 08:26; Start 03/24/21 at 21:00 Lisinopril (Prinivil) 10 mg DAILY PO Last administered on 03/27/21at 08:18; Start 03/24/21 at 12:00 Insulin Human Lispro (HumaLOG) 0-5 UNITS QIDACHS SQ Last administered on 03/27/21at 08:25; Start 03/24/21 at 11:30 Dextrose (Dextrose 50%-Water Syringe) 12.5 gm PRN Q15MIN PRN IV SEE COMMENTS; Start 03/24/21 at 10:30 Hydrochlorothiazide (Microzide) 12.5 mg DAILY PO Last administered on 03/27/21at 08:18; Start 03/24/21 at 12:00 Amino Acids/ Electrolytes/ Dextrose 1,000 ml @ 80 mls/hr [id number] IV Last administered on 03/25/21at 03:15; Start 03/24/21 at 12:30; Stop 03/25/21 at 14:03; Status DC Hydralazine HCl (Apresoline Inj) 10 mg PRN Q4HRS PRN IVP ELEVATED BP, SEE COMMENTS Last administered on 03/25/21at 03:16; Start 03/25/21 at 02:45 Insulin Human Lispro (HumaLOG) 12 units TIDWMEALS SQ Last administered on 03/27/21at 08:26; Start 03/25/21 at 17:00 Carvedilol (Coreg) 3.125 mg BIDWMEALS PO Last administered on 03/27/21at 08:17; Start 03/25/21 at 17:00 Acetaminophen (Tylenol) 650 mg PRN Q6HRS PRN PO MILD PAIN / TEMP > 100.3'F Last administered on 03/27/21at 08:19; Start 03/25/21 at 22:00 Olanzapine (ZyPREXA ZYDIS) 5 mg PRN BID PRN PO ANXIETY / AGITATION Last administered on 03/26/21at 22:55; Start 03/25/21 at 22:00 Tramadol HCl (Ultram) 50 mg PRN Q6HRS PRN PO PAIN Last administered on 03/26/21at 22:42; Start 03/25/21 at 22:00 Ketorolac Tromethamine (Toradol 30mg Vial) 30 mg PRN Q6HRS PRN IVP INFLAMMATION Last administered on 03/26/21at 22:42; Start 03/25/21 at 22:00 Zinc Oxide (Zinc Oxide 20% Topical) 1 nikolai PRN Q4HRS PRN TP SKIN PROTECTION; Start 03/25/21 at 22:00 Morphine Sulfate (Morphine Sulfate) 2 mg 1X PRN IV PAIN Last administered on 03/26/21at 16:31; Start 03/26/21 at 16:15 Lidocaine HCl (Glydo (Lidocaine) Jelly) 1 nikolai 1X ONCE MM Last administered on 03/26/21at 17:02; Start 03/26/21 at 16:30; Stop 03/26/21 at 16:31; Status DC Morphine Sulfate (Morphine Sulfate) 2 mg 1X PACU PRN IV PAIN Last administered on 03/26/21at 17:06; Start 03/26/21 at 16:30; Stop 03/26/21 at 23:00; Status DC Active Scripts Active Hydrochlorothiazide Capsule (Hydrochlorothiazide) 12.5 Mg Capsule 12.5 Mg PO DAILY 30 Days Carvedilol (Carvedilol) 3.125 Mg Tablet 3.125 Mg PO BIDWMEALS 30 Days Atorvastatin Calcium 20 Mg Tablet 20 Mg PO QHS 30 Days Novolin N Flexpen (Insulin NPH Human Isophane) 100 Unit/1 Ml Insuln.pen 15 Unit SQ BID Novolin R (Insulin Regular, Human) 100 Unit/1 Ml Vial 7 Unit IJ TID Reported Bactrim Ds Tablet (Sulfamethoxazole/Trimethoprim) 1 Each Tablet 1 Tab PO BID 10 Days Gabapentin 600 Mg Tablet 600 Mg PO TID Celexa (Citalopram Hydrobromide) 20 Mg Tablet 20 Mg PO DAILY Lisinopril-Hctz 10-12.5 Mg Tab (Lisinopril/Hydrochlorothiazide) 1 Each Tablet 1 Tab PO DAILY Vitals/I & O Vital Sign - Last 24 Hours 03/26/21 03/26/21 03/26/21 03/26/21 11:00 15:08 16:31 17:01 Temp 97.8 98.0 97.8 98.0 Pulse 82 92 Resp 18 18 B/P (MAP) 138/86 (103) 104/56 (72) Pulse Ox 97 98 98 98 O2 Delivery Room Air Room Air Room Air Room Air 03/26/21 03/26/21 03/26/21 03/26/21 17:04 17:06 17:36 19:28 Temp 98.4 98.4 Pulse 92 86 Resp 16 B/P (MAP) 104/56 130/67 (88) Pulse Ox 98 98 100 O2 Delivery Room Air Room Air Room Air 03/26/21 03/26/21 03/26/21 03/26/21 20:00 22:42 22:59 23:20 Temp 97.5 97.5 Pulse 81 Resp 20 18 18 B/P (MAP) 148/74 (98) Pulse Ox 100 96 96 O2 Delivery Room Air Room Air Room Air Room Air 03/27/21 03/27/21 03/27/21 03/27/21 03:21 07:00 08:00 08:17 Temp 97.4 97.7 97.4 97.7 Pulse 66 74 66 Resp 16 18 B/P (MAP) 125/67 (86) 123/70 (87) 125/67 Pulse Ox 99 99 O2 Delivery Room Air Room Air Room Air 03/27/21 03/27/21 08:18 10:28 Temp 98.1 98.1 Pulse 66 75 Resp 16 B/P (MAP) 125/67 104/62 (76) Pulse Ox 100 O2 Delivery Room Air Intake and Output 03/26/21 03/26/21 03/27/21 15:00 23:00 07:00 Intake Total 500 ml 720 ml 0 ml Output Total 900 ml Balance 500 ml -180 ml 0 ml Justicifation of Admission Dx: Justifications for Admission: Justification of Admission Dx: Yes GRIS TOLLIVER MD Mar 27, 2021 10:31
--- NOTE | 2021-03-27 12:19 | NUR ---
SS following up with discharge planning. SS reviewed pt chart and discussed with pt RN. Pt is currently on room air. COVID19 negative. PO diet. Discharge plan is currently to home when medically ready for discharge. SS will continue to follow for discharge planning. Addendum: 03/27/21 at 1442 by MATTHEW ESPITIA SS Pt needing transportation to home. [facility] transport unavailable. [facility] scheduled between 1500 and 1530.
[2021-03-27] MEDS ORDERED: TAMS0.4C97 PO (14:07)
--- NOTE | 2021-03-27 15:34 | NUR ---
Discharge Note: KORIN JEFFREY[address] [place] [address] Discharge instructions and discharge home medications reviewed with Patient and a copy given. All questions have been answered and understanding verbalized. The following instructions and handouts were given: [place] care, carvedilol, hydrochlorothiazide, tamsulosin. Patient discharged to home with self care via wheelchair.
--- NOTE | 2021-03-28 18:12 | PDOC3 ---
[facility]-Discharge Summary Date of Admission: Date of Admission: Mar 24, 2021 Date of Discharge: Date of Discharge: Mar 27, 2021 Discharge Diagnosis: Discharge Diagnosis: acute metabolic encephalopathy, poss partial seizure, consult neuro Hx OF CVA reported on prior admit Diabetes on insulin, type1, prior hgb A1c 11.9 weakness and debility paraphimosis, manually reduced bedside Consults: Consults: Neuro Plan No additional neurological studies or treatment needed. Okay for discharge Continue gabapentin. Hospital Course: Hospital Course: 55 year old brought in by EMS from home for confusion, after awakneing at em with new symptoms He had a new speech difficulty and facial droop. her proted consuion and had witness tremor and shakign movements to his upper extremities. He feels weak and is not sure where he is todaym, prior stroke noted in prior notes Evaluated by neurology. Per neuro notes: Acute issues of dysarthria, facial drooping, total body pain, stuttering of his speech, penile pain. Brain MRI again is negative. No obvious metabolic issue besides hyperglycemia. Urine drug screen was negative. Diabetic neuropathy, otherwise I find no organic neurological issue. 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 I treated him with a prednisone taper. MRI of the brain both times was negative. He did not return to the office for follow-up. Patient's mental status has returned to baseline. 03/26/21 No acute events overnight. Mental status improved. penile pain due to paraphimosis. Bedside reduction completed and foreskin retracted. By day of discharge, pt was clinically stable and ready for discharge. He will need to keep ryan in and stay on FLomax until seen by PCP or urologist to remove. Rest of hospital course was uneventful Disposition: Disposition/Orders: D/C to Home Activity: Activity: Resume previous activity Diet: Diet: Cardiac Medications: Home Meds Active Scripts Tamsulosin Hcl (FLOMAX) 0.4 Mg Cap.er.24h, 0.4 MG PO DAILY for urinary retention, #30 TAB 2 Refills Prov:KVNG IVY MD 03/27/21 Hydrochlorothiazide (HYDROCHLOROTHIAZIDE CAPSULE ) 12.5 Mg Capsule, 12.5 MG PO DAILY for blood pressure for 30 Days, #30 CAP 2 Refills Prov:KVNG IVY MD 03/26/21 Carvedilol (CARVEDILOL ) 3.125 Mg Tablet, 3.125 MG PO BIDWMEALS for blood pressure for 30 Days, #60 TAB 2 Refills Prov:KVNG IVY MD 03/26/21 Atorvastatin Calcium (ATORVASTATIN CALCIUM) 20 Mg Tablet, 20 MG PO QHS for hld for 30 Days, #30 TAB Prov:SMITHA ANGEL K III DO 09/12/20 Insulin NPH Human Isophane (Novolin N Flexpen) 100 Unit/1 Ml Insuln.pen, 15 UNIT SQ BID, #100 EACH Prov:JAIME CARDONA MD 02/28/20 Insulin Regular, Human (NOVOLIN R) 100 Unit/1 Ml Vial, 7 UNIT IJ TID, #100 EACH Prov:JAIME CARDONA MD 02/28/20 Reported Medications Sulfamethoxazole/Trimethoprim (BACTRIM DS TABLET) 1 Each Tablet, 1 TAB PO BID for GLUTEAL CYST REMOVAL for 10 Days, #20 TAB 0 Refills 03/24/21 Gabapentin (GABAPENTIN) 600 Mg Tablet, 600 MG PO TID for NEUROGENIC PAIN, TAB 03/24/21 Citalopram Hydrobromide (CELEXA) 20 Mg Tablet, 20 MG PO DAILY for depression, TAB 03/09/20 Lisinopril/Hydrochlorothiazide (LISINOPRIL-HCTZ 10-12.5 MG TAB) 1 Each Tablet, 1 TAB PO DAILY for htn, #90 TAB 3 Refills 03/09/20 Scheduled Atorvastatin Calcium (Atorvastatin Calcium), 20 MG PO QHS Carvedilol (Carvedilol ), 3.125 MG PO BIDWMEALS Citalopram Hydrobromide (Celexa), 20 MG PO DAILY, (Reported) Gabapentin (Gabapentin), 600 MG PO TID, (Reported) Hydrochlorothiazide (Hydrochlorothiazide Capsule ), 12.5 MG PO DAILY Insulin NPH Human Isophane (Novolin N Flexpen), 15 UNIT SQ BID Insulin Regular, Human (Novolin R), 7 UNIT IJ TID Lisinopril/Hydrochlorothiazide (Lisinopril-Hctz 10-12.5 Mg Tab), 1 TAB PO DAILY, (Reported) Sulfamethoxazole/Trimethoprim (Bactrim Ds Tablet), 1 TAB PO BID, (Reported) Tamsulosin Hcl (Flomax), 0.4 MG PO DAILY Total Time: Total Time: Total time spent was 32 minutes in preparing scripts, discharge planning with SW and RN, and preparing this discharge summary. Patient seen and examined on day of discharge. Justicifation of Admission Dx: Justifications for Admission: Justification of Admission Dx: Yes KVNG IVY MD Mar 28, 2021 18:12
== END 2021-03-27 15:26 | disposition home or self-care (01) | DRG 69 ==
LOC: ER 02:38 → 6 SOUTH 05:05 → OBSVTOIN 03-26 16:25
PROVIDERS: ADMIT Internal Medicine; ATTEND Internal Medicine
DX: G45.9 Transient cerebral ischemic attack, unspecified (principal); G93.41 Metabolic encephalopathy; R47.1 Dysarthria and anarthria; R29.810 Facial weakness; R41.82 Altered mental status, unspecified; E11.40 Type 2 diabetes mellitus with diabetic neuropathy, unspecified; F31.9 Bipolar disorder, unspecified; I10 Essential (primary) hypertension; N47.2 Paraphimosis; Z79.4 Long term (current) use of insulin; Z82.3 Family history of stroke; Z82.49 Family history of ischemic heart disease and other diseases of the circulatory system; Z83.3 Family history of diabetes mellitus; Z86.73 Personal history of transient ischemic attack (TIA), and cerebral infarction without residual deficits; Z87.442 Personal history of urinary calculi; Z90.49 Acquired absence of other specified parts of digestive tract
CPT/HCPCS: 36415; 70450; 70551; 71045; 80048; 80053; 80076; 80307; 81001; 82140; 82550; 82962; 83605; 84484; 85025; 85610; 85730; 87040; 87426; 87804; 93005; 96360; 96361; G0378; G0379; G0480; J0360; J1815; J1885; J2270; J3490; J7030; U0003; U0005; 92526-GN; 92610-GN; 99285-25

== ENCOUNTER 2021-05-21 07:51 | Emergency (ER) | payer MEDICAID ==
[~2021-05-21] VITALS: Ht 172.7 cm; Wt 99.0 kg
[~2021-05-21 07:51] MED LIST changes: +CARV3.1210 PO; +GABA600T7 PO; +SULF1TAB24 PO; +TAMS0.4C97 PO
--- NOTE | 2021-05-21 08:12 | PHYS DOC ---
Past Medical History Past Medical History: CVA, Diabetes-Type II, Hypertension, Kidney Stone Additional Past Medical Histor: STAPH INFECTION ON LEFT LEG W/ SX, CVA with L side weakness Past Surgical History: Other Additional Past Surgical Histo: unknown Smoking Status: Unknown if ever smoked Alcohol Use: None General Adult EDM: Chief Complaint: FEVER HPI: HPI: Patient is a 55 year old male with history of DM, CVA, indwelling Ryan who presents with fever for the approximately last 24 hours not treatable Tylenol and abdominal pain. Abdominal pain is lower in the bilateral quadrants. Does not radiate. Worse with movement or with palpation. No alleviating factors identified. States that his Ryan was last changed April 26, but does not know who is responsible for changing it or why it was placed in the first place. Denies cough, congestion, sore throat, runny nose, loss of taste/smell. Denies sick contacts. Was not vaccinated for Covid. No nausea/vomiting. Did have diarrhea approximately 3 days ago. Review of Systems: Review of Systems: Constitutional: Reports fever and chills Eyes: Denies change in visual acuity. [] HENT: Denies nasal congestion or sore throat. [] Respiratory: Denies cough or acute shortness of breath. [] Cardiovascular: Denies chest pain or edema. [] GI: Reports abdominal pain and previous diarrhea. Denies nausea/vomiting. : Indwelling Ryan chronic Musculoskeletal: Denies back pain or joint pain. [] Integument: Denies rash. [] Neurologic: Denies headache, focal weakness or sensory changes. [] Psychiatric: Denies depression or anxiety. [] Heart Score: C/O Chest Pain: No Allergies: Allergies: Allergies Coded Allergies Type Severity Reaction Last Updated Verified I S O L A T I O N *CONTACT* Allergy Unknown 01/15/21 Yes No Known Medication Allergies Allergy Unknown 01/15/21 Yes Physical Exam: PE: Constitutional: Well developed, well nourished, no acute distress HENT: Normocephalic, atraumatic Neck: Normal range of motion, no tenderness, supple, no stridor. [] Cardiovascular:Heart rate regular rhythm, no murmur [] Lungs & Thorax: Bilateral breath sounds clear to auscultation [] Abdomen: Diffuse tenderness to palpation worse in the lower quadrants with accompanying guarding. : ryan in placed Skin: Warm, dry, no erythema, no rash. [] Extremities: No tenderness, no cyanosis, no clubbing, ROM intact, no edema. [] Neurologic: Alert and oriented X 3 Psychologic: Affect normal, judgement normal, mood normal. [] EKG: EKG: [] Radiology/Procedures: Radiology/Procedures: [] Impression: [id number] [place] [address] IMAGING REPORT Signed PATIENT: KORIN JEFFREY ACCOUNT: [id number] : 1965 LOCATION: ER AGE: 55 SEX: M EXAM STATUS: REG ER ORD. PHYSICIAN: YAYO PARKS MD REASON: covid + PROCEDURE: CHEST AP ONLY EXAM: CHEST ONE VIEW. HISTORY: COVID-19. COMPARISON: 03/24/2021. FINDINGS: A frontal view of the chest is obtained. There are mild linear opacities in the left greater than right bases. There is no pneumothorax or pleural effusion. The heart is not enlarged. A cardiac monitoring device projects over the left chest. IMPRESSION: 1. Mild bibasilar infiltrates consistent with atypical pneumonia. Electronically signed by: Ifrah Obrien MD (05/21/2021 10:49 AM) [id number] DICTATED and SIGNED BY: YAYO OBRIEN MD DATE: 05/21/21 [id number] [place] [address] IMAGING REPORT Signed PATIENT: KORIN JEFFREY ACCOUNT: [id number] : 1965 LOCATION: ER AGE: 55 SEX: M EXAM STATUS: REG ER ORD. PHYSICIAN: YAYO PARKS MD REASON: Lower abd pain, fever PROCEDURE: CT ABD PELV W/ IV CONTRST ONLY INDICATION: Reason: Lower abd pain, fever / Spl. Instructions: IV omni 300 75 mls / History: COMPARISON: September 2020 TECHNIQUE: Axial CT images were obtained through the abdomen and pelvis with intravenous contrast. One or more of the following individualized dose reduction techniques were utilized for this examination: 1. Automated exposure control; 2. Adjustment of the mA and/or kV according to patient size; 3. Use of iterative reconstruction technique. FINDINGS: Linear opacities at the left lower lung which could be from scarring or atelectasis. Vascular: Atherosclerotic disease throughout the vasculature. Hepatobiliary: Postcholecystectomy. Liver appears mildly low density which is nonspecific but can be seen with mild fatty infiltration. Pancreas: Mild prominence of pancreatic duct. No adjacent fluid collection. Spleen: Spleen unremarkable. Renal/Bladder: Bilateral nonspecific perinephric stranding. Urinary bladder is decompressed with a catheter within. Prominence of wall. Mild haziness adjacent fat. Low-density lesion of the left kidney measuring about 12 mm. Gastrointestinal: Colonic diverticulosis. No dilated loops of bowel to suggest obstruction. Fat-containing umbilical hernia. Surgical clips right lower quadrant. Degenerative changes throughout the spine. IMPRESSION: * Urinary bladder is decompressed with catheter within. Wall is prominent with mild haziness of adjacent fat. Would correlate with symptoms to ensure there is not a pathologic cause such as cystitis. * No evidence of bowel obstruction. * Soft tissue density at the subcutaneous fat in the gluteal region abutting the area of the coccyx. Nonspecific appearance but would correlate with physical exam findings to ensure that this is not infectious in nature. Another possible cause would include a small subcutaneous hematoma or confluent fibrosis. There is also a tract extending towards the anorectal region abutting this site. Electronically signed by: Tracy Bravo MD (05/21/2021 10:06 AM) [id number] DICTATED and SIGNED BY: TRACY BRAVO MD DATE: 05/21/21 [id number] Course & Med Decision Making: Course & Med Decision Making Pertinent Labs and Imaging studies reviewed. (See chart for details) Patient 55-year-old male with history of diabetes and chronic indwelling Ryan who presents with fever and abdominal pain. Infectious sources considered: intrabdominal, UTI, pneumonia, covid, bacteremia. Abd/pelv CT, Blood culture, urine culture, lactic, ryan change, IVF, and empiric zosyn ordered (to cover potential intra-abdominal source). 0812 CT shows bladder thickening, cystitis vs chronic inflammation from ryan. UA pending. COVID +, CXR clear. Lactate and WBC wnl. 1124 INR and bilirubin normal. No evidence of liver failure. Acute hepatitis panel added. UA negative for infection. Seems symptoms are due to COVID. Satting 95+% and his VS have remained stable. Do not feel he has an acute indication for hospitalization at this time. Advised of isolation and return precautions. 1309 Cheri Disclaimer: Cheri Disclaimer: This electronic medical record was generated, in whole or in part, using a voice recognition dictation system. Departure Departure Impression: Primary Impression: COVID-19 Additional Impression: Elevated liver enzymes Disposition: HOME / SELF CARE / HOMELESS Condition: STABLE Referrals: SEFERINO MENJIVAR MD (PCP) Schedule an appointment in approximately 2 weeks for follow-up of your high liver enzymes. Additional Instructions: You have Covid. Isolation: -You will need to isolate for a minimum of 10 days from your symptom onset (05/31/2021 at the earliest) -At the 10-day jackie, you must also have at least 3 days of no fever/chills, and improving symptoms before you end your isolation. -You are continuing to be symptomatic or having high fevers you need to continue your isolation until you meet the above requirements. Monitoring: -Please buy a home pulse oximeter. These can be purchased [email or web address] most pharmacies, or on [employer]. -Check your oxygen levels once a day. If they are persistently below 90% please return to the emergency department. -If you develop chest pain or worsening shortness of breath please return to the emergency department. You also have elevated liver enzymes. This will need to be monitored by your primary care doctor. Please schedule a follow-up appointment after you recover from your Covid infection to consider further work-up for this lab abnormality. Please abstain from alcohol. For body aches/fever and ibuprofen are best used on a schedule. Please alternate between the two. -Tylenol 650 mg every 6 hours (do not exceed 4000 mg in one day) -Ibuprofen 400 mg every 6 hours. Take with food. Do not take for more than 1 week. YAYO PARKS MD May 21, 2021 08:12
[2021-05-21] MEDS ORDERED: IV NORMAL SALINE 1000ML BAG 1,000 ML IV ONE (08:30)
[2021-05-21] MEDS ORDERED: IOHEXOL 300 MG/ML 100ML VIAL. IV ONE (08:30)
[2021-05-21] MEDS ORDERED: CONTRAST GIVEN. MC PRN (08:30)
[2021-05-21] MEDS ORDERED: PIPERACILLIN/TAZOBACTAM 4.5 GM in IV NORMAL SALINE 100ML 100 ML IV ONE (08:30)
[2021-05-21 08:51] LABS: INFLUENZA A PATIENT NEGATIVE (NEGATIVE); INFLUENZA B PATIENT NEGATIVE (NEGATIVE)
[2021-05-21 08:58] LABS: BASO % 0 % (0-3); EOS % 1 % (0-3); HEMOGLOBIN 13.2 g/dL (13.0-17.5); LYMPH # 0.9 x10^3/uL (1.0-4.8); LYMPH % 23 % (24-48); MEAN CORPUSCULAR HEMOGLOBIN 28 pg (25-35); MEAN CORPUSCULAR HGB CONC 34 g/dL (31-37); MEAN CORPUSCULAR VOLUME 83 fL (79-100); MONO # 0.6 x10^3/uL (0.0-1.1); MONO % 15 % (0-9); NEUT # 2.4 x10^3/uL (1.8-7.7); NEUT % 60 % (31-73); PLATELET COUNT 192 x10^3/uL (140-400); RED BLOOD COUNT 4.69 x10^6/uL (4.30-5.70); RED CELL DISTRIBUTION WIDTH 13.5 % (11.5-14.5)
[2021-05-21 09:20] LABS: CALCIUM 8.5 mg/dL (8.5-10.1); CREATININE 1.1 mg/dL (0.7-1.3); POTASSIUM 3.3 mmol/L (3.5-5.1)
[2021-05-21 09:25] LABS: ALBUMIN 3.2 g/dL (3.4-5.0); ALBUMIN/GLOBULIN RATIO 0.8 (1.0-1.7); TOTAL BILIRUBIN 0.3 mg/dL (0.2-1.0)
--- NOTE | 2021-05-21 10:09 | RAD ---
INDICATION: Reason: Lower abd pain, fever / Spl. Instructions: IV omni 300 75 mls / History: COMPARISON: September 2020 TECHNIQUE: Axial CT images were obtained through the abdomen and pelvis with intravenous contrast. One or more of the following individualized dose reduction techniques were utilized for this examinat ion: 1. Automated exposure control; 2. Adjustment of the mA and/or kV according to patient size; 3 . Use of iterative reconstruction technique. FINDINGS: Linear opacities at the left lower lung which could be from scarring or atelectasis. Vascular: Atherosclerotic disease throughout the vasculature. Hepatobiliary: Postcholecystectomy. Liver appears mildly low density which is nonspecific but can be seen with mild fatty infiltration. Pancreas: Mild prominence of pancreatic duct. No adjacent fluid collection. Spleen: Spleen unremarkable. Renal/Bladder: Bilateral nonspecific perinephric stranding. Urinary bladder is decompressed with a ca theter within. Prominence of wall. Mild haziness adjacent fat. Low-density lesion of the left kidney measuring about 12 mm. Gastrointestinal: Colonic diverticulosis. No dilated loops of bowel to suggest obstruction. Fat-conta ining umbilical hernia. Surgical clips right lower quadrant. Degenerative changes throughout the spine. IMPRESSION: * Urinary bladder is decompressed with catheter within. Wall is prominent with mild haziness of adj acent fat. Would correlate with symptoms to ensure there is not a pathologic cause such as cystitis. * No evidence of bowel obstruction. * Soft tissue density at the subcutaneous fat in the gluteal region abutting the area of the coccyx. Nonspecific appearance but would correlate with physical exam findings to ensure that this is not in fectious in nature. Another possible cause would include a small subcutaneous hematoma or confluent f ibrosis. There is also a tract extending towards the anorectal region abutting this site. Electronically signed by: Keron Teixeira MD (05/21/2021 10:06 AM) [id number]
[2021-05-21] MEDS ORDERED: ACETAMINOPHEN 500 MG TABLET PO ONE (10:30)
--- NOTE | 2021-05-21 10:51 | RAD ---
EXAM: CHEST ONE VIEW. HISTORY: COVID-19. COMPARISON: 03/24/2021. FINDINGS: A frontal view of the chest is obtained. There are mild linear opacities in the left greater than right bases. There is no pneumothorax or ple ural effusion. The heart is not enlarged. A cardiac monitoring device projects over the left chest. IMPRESSION: 1. Mild bibasilar infiltrates consistent with atypical pneumonia. Electronically signed by: Ifrah Obrien MD (05/21/2021 10:49 AM) [id number]
[2021-05-21] MEDS ORDERED: GABAPENTIN 300 MG CAPSULE. PO ONE (11:15)
[2021-05-21 11:57] LABS: PROTHROMBIN TIME PATIENT 12.9 SEC (11.7-14.0)
[2021-05-21 12:13] LABS: BILIRUBIN,URINE NEGATIVE (NEG); CLARITY,URINE CLEAR; COLOR,URINE YELLOW; NITRITE,URINE NEGATIVE (NEG); PROTEIN,URINE 100 mg/dL (NEG-TRACE)
[2021-05-21 12:24] LABS: BACTERIA,URINE 0 /HPF (0-FEW); RBC,URINE 0 /HPF (0-2); WBC,URINE 0 /HPF (0-4)
[2021-05-21 13:39] VITALS: BP 98/63
== END 2021-05-21 13:44 | disposition home or self-care (01) ==
LOC: ER 07:51
DX: U07.1 COVID-19 (principal); R74.8 Abnormal levels of other serum enzymes; E11.9 Type 2 diabetes mellitus without complications; I10 Essential (primary) hypertension; Z86.73 Personal history of transient ischemic attack (TIA), and cerebral infarction without residual deficits; Z91.041 Radiographic dye allergy status
CPT/HCPCS: 36415; 71045; 74177; 80053; 81001; 83605; 83690; 85025; 85610; 86705; 86709; 86803; 87040; 87340; 87426; 87804; 96365; 99285; J2543; J7030; Q9967; 96360

== ENCOUNTER 2021-06-15 15:07 | Emergency (ER) | payer MEDICAID ==
[~2021-06-15] VITALS: Ht 172.7 cm; Wt 81.8 kg
[2021-06-15] MEDS ORDERED: KETOROLAC 60 MG/2 ML VIAL. IM ONE (16:00)
--- NOTE | 2021-06-15 16:26 | PHYS DOC ---
Past Medical History Past Medical History: Diabetes-Type II, Hypertension, Kidney Stone Additional Past Medical Histor: neuropathy, diet controlled diabetes, chronic ryan since Mar 2021 s/p AMS Past Surgical History: Other Additional Past Surgical Histo: unknown Smoking Status: Never Smoker Alcohol Use: None General Adult EDM: Chief Complaint: URINE CATHETER PROBLEM HPI: HPI: Patient is a 55 year old male who presents with suprapubic pain and urinary retention status post Ryan catheter removal this morning. Patient reports he was in the hospital for possible stroke in February or March of last year. He states he did not have a stroke, but a Ryan was placed during his hospital stay. After that time, the urinary catheter was never removed. Patient reports they had to remove part of the glans penis to open his urethra. Patient is treated by Dr. Vin Reese at [facility] [place]. This morning, the Ryan catheter was rem trinity. Since that time patient reports an area and worsening suprapubic pain that extends down to the scrotum. He denies urethral discharge, genital trauma or blood. Review of Systems: Review of Systems: ROS negative or noncontributory except as mentioned in HPI. Heart Score: C/O Chest Pain: No Current Medications: Current Medications Medications (Trade) Dose Ordered Sig/Rock Start Time Stop Time Status Last Admin Dose Admin Ketorolac Tromethamine (Toradol Im) 60 mg 1X ONCE 06/15/21 16:00 06/15/21 16:01 DC 06/15/21 15:52 60 MG Allergies: Allergies: Allergies Coded Allergies Type Severity Reaction Last Updated Verified I S O L A T I O N *CONTACT* Allergy Unknown 01/15/21 Yes No Known Medication Allergies Allergy Unknown 05/21/21 Yes Physical Exam: PE: Constitutional: Well developed, well nourished, no acute distress, non-toxic appearance. HENT: Normocephalic, atraumatic, bilateral external ears normal, nose normal. Eyes: EOMI, conjunctiva normal, no discharge. Neck: Normal range of motion, no stridor. Abdomen: Bowel sounds normal, soft, suprapubic tenderness without guarding, no masses, no pulsatile masses. Skin: Warm, dry, no erythema, no rash. Extremities: No tenderness, no cyanosis, no clubbing, ROM intact, no edema. Neurologic: Alert and oriented x4, no focal deficits noted. Current Patient Data: Labs: Laboratory Tests Test 06/15/21 15:27 Urine Collection Type Unknown Urine Color Yellow Urine Clarity Clear Urine pH 6.0 (<5.0-8.0) Urine Specific [place] >=1.030 (1.000-1.030) Urine Protein 100 mg/dL (NEG-TRACE) Urine Glucose (UA) >=1000 mg/dL (NEG) Urine Ketones (Stick) Negative mg/dL (NEG) Urine Blood Negative (NEG) Urine Nitrite Negative (NEG) Urine Bilirubin Negative (NEG) Urine Urobilinogen Dipstick 0.2 mg/dL (0.2 mg/dL) Urine Leukocyte Esterase Negative (NEG) Urine RBC 0 /HPF (0-2) Urine WBC 5-10 /HPF (0-4) Urine Squamous Epithelial Cells Occ /LPF Urine Bacteria Few /HPF (0-FEW) Urine Hyaline Casts Occasional /HPF Urine Mucus Slight /LPF Vital Signs: Vital Signs Date Time Temp Pulse Resp B/P (MAP) Pulse Ox O2 Delivery O2 Flow Rate FiO2 06/15/21 15:43 92 20 160/95 (116) 96 Room Air 06/15/21 15:07 98.2 98.2 Course & Med Decision Making: Course & Med Decision Making Pertinent Labs and Imaging studies reviewed. (See chart for details) Patient is a 55-year-old male who presents with anuria since Ryan catheter removal this morning. Since that time, he has been unable to urinate and has suprapubic pain. Work-up today will include bladder scan and urinalysis. Bladder scan showed 440 cc retained urine. Straight cath resulted in 400 cc of urine removed. Spoke with Dr. Reese (urologist), who the patient saw this morning. Dr. Reese request the Ryan be replaced and a course of antibiotics be initiated. He will see the patient early next week for reevaluation. Explained findings and Dr. Reese' recommendation with the patient. He was given return precautions and Ryan care instruction. Patient understands and is agreeable to discharge plan. Dragon Disclaimer: Dragon Disclaimer: This electronic medical record was generated, in whole or in part, using a voice recognition dictation system. Departure Departure Impression: Primary Impression: Acute on chronic urinary retention Additional Impression: Status post insertion of Ryan catheter Disposition: HOME / SELF CARE / HOMELESS Condition: IMPROVED Referrals: SEFERINO MENJIVAR MD (PCP) Patient Instructions: Ryan Catheter Care, Adult, Urinary Retention, Acute, Male, [id number] Additional Instructions: EMERGENCY DEPARTMENT GENERAL DISCHARGE INSTRUCTIONS Thank you for coming to [facility] Emergency Department (ED) today and trusting us with you care. We trust that you had a positive experience in our Emergency Department. If you wish to speak to the department management, you may call the director at . YOUR FOLLOW UP INSTRUCTIONS ARE FOLLOWS: 1. Follow up with your primary care doctor. If you do not have a primary doctor, please ask for a resource list of physicians or clinics that may be able to assist you with follow up care. 2. The emergency provider has interpreted your images. The radiology electronic publishing specialist also reviewed them. If there is a change in the findings, you will be notified in 48 hours when at all possible. 3. A lab test or culture has been done, your results will be reviewed and you will be notified if you need a change in treatment. 4. Follow instructions verbalized to you and refer to the printouts if needed. Take the full course of antibiotics. Dr. Reese will see you next week for further evaluation and management. Please call his office at if you have further questions for the urologist. ADDITIONAL INSTRUCTIONS AND INFORMATION: 1. Your care today has been supervised by a physician who is specially trained in emergency care. Many problems require more than one evaluation for a complete diagnosis and treatment. We recommend that you schedule your follow up appointment as recommended to ensure complete treatment of you illness or injury. If you are unable to obtain follow up care and continue to have a problem, or if your condition worsens, we recommend that you return to the ED. 2. We are not able to safely determine your condition over the phone nor are we able to give sound medical advice over the phone. For these safety reasons, if you call for medical advice we will ask you to come to the ED for further evaluation. 3. If you have any questions regarding these discharge instructions please call the ED at . SAFETY INFORMATION: In the interest of safety, wellness, and injury prevention; we encourage you to wear your seat belt, if you smoke; quite smoking, and we encourage family to use a protective helmet for bicycling and other sporting events that present an increased risk for head injury. IF YOUR SYMPTOMS WORSEN OR NEW SYMPTOMS DEVELOP, OR YOU HAVE CONCERNS ABOUT YOUR CONDITION; OR IF YOUR CONDITION WORSENS WHILE YOU ARE WAITING FOR YOUR FOLLOW UP APPOINTMENT; EITHER CONTACT YOUR PRIMARY CARE DOCTOR, THE PHYSICIAN WHOSE NAME AND NUMBER YOU WERE GIVEN, OR RETURN TO THE ED IMMEDIATELY. Scripts Cephalexin (KEFLEX) 500 Mg Capsule 1 CAP PO BID for 5 Days, #10 CAP Prov: BIANKA CONTRERAS 06/15/21 BIANKA CONTRERAS Jun 15, 2021 16:26
[2021-06-15 16:32] LABS: BILIRUBIN,URINE NEGATIVE (NEG); CLARITY,URINE CLEAR; COLOR,URINE YELLOW; NITRITE,URINE NEGATIVE (NEG); PROTEIN,URINE 100 mg/dL (NEG-TRACE); UROBILINOGEN,URINE 0.2 mg/dL (0.2 mg/dL)
[2021-06-15] MEDS ORDERED: CEPH500C PO (16:37)
[2021-06-15 16:42] LABS: HYALINE CASTS, URINE OCCASIONAL /HPF
[2021-06-15 16:43] LABS: BACTERIA,URINE FEW /HPF (0-FEW); RBC,URINE 0 /HPF (0-2)
[2021-06-15 16:44] VITALS: BP 181/94
== END 2021-06-15 17:02 | disposition home or self-care (01) ==
LOC: ER 15:07
DX: I10 Essential (primary) hypertension (principal); R10.30 Lower abdominal pain, unspecified; R33.9 Retention of urine, unspecified; E11.40 Type 2 diabetes mellitus with diabetic neuropathy, unspecified; Z91.041 Radiographic dye allergy status
CPT/HCPCS: 51702; 81001; 87086; 96372; 99284; A4314; J1885

== ENCOUNTER 2021-07-21 00:33 | Emergency (ER) | payer MEDICAID ==
[~2021-07-21] VITALS: Ht 177.8 cm; Wt 81.8 kg
[~2021-07-21 00:33] MED LIST changes: +CEPH500C PO
--- NOTE | 2021-07-21 00:53 | PHYS DOC ---
Past Medical History Past Medical History: Diabetes-Type II, Hypertension, Kidney Stone Additional Past Medical Histor: neuropathy, diet controlled diabetes, chronic ryan since Mar 2021 s/p AMS Past Surgical History: Other Additional Past Surgical Histo: unknown Smoking Status: Never Smoker Alcohol Use: None General Adult EDM: Chief Complaint: URINE CATHETER PROBLEM HPI: HPI: Patient is a 55 year old male who is here with report of feeling as if his urinary catheter is not draining appropriately. He reports that urine is draining out of his urethra from around the catheter. He reports penile and lower pelvic pain. He has had a urinary catheter in place since February 2021. He seems to have a very poor understanding of why this is placed. He describes failed trials of voiding. He sees a urologist at [facility] [place]. He has a scheduled appointment with him next week. He denies fevers, nausea, vomiting. Denies bowel habit changes. He denies any gross hematuria. The last time his urinary catheter was changed with was stented 2 weeks ago. Review of Systems: Review of Systems: Constitutional: Denies fever or chills. [] Respiratory: Denies cough or shortness of breath. [] Cardiovascular: Denies chest pain or edema. [] GI: Denies abdominal pain, nausea, vomiting, or diarrhea : Obstructed urinary catheter, penile pain, suprapubic discomfort. No gross hematuria. Decreased urine output from the catheter. Musculoskeletal: Denies back pain or joint pain. [] Integument: Denies rash. [] Neurologic: Denies headache, focal weakness or sensory changes. [] Endocrine: Reports hyperglycemia earlier today Psychiatric: Denies depression or anxiety. [] Heart Score: C/O Chest Pain: No Risk Factors: Risk Factors: DM, Current or recent (<one month) smoker, HTN, HLP, family history of CAD, obesity. Risk Scores: Score 0 - 3: 2.5% MACE over next 6 weeks - Discharge Home Score 4 - 6: 20.3% MACE over next 6 weeks - Admit for Clinical Observation Score 7 - 10: 72.7% MACE over next 6 weeks - Early Invasive Strategies Allergies: Allergies: Allergies Coded Allergies Type Severity Reaction Last Updated Verified I S O L A T I O N *CONTACT* Allergy Unknown 01/15/21 Yes No Known Medication Allergies Allergy Unknown 05/21/21 Yes Physical Exam: PE: Constitutional: Well developed, well nourished, no acute distress, non-toxic appearance. [] HENT: Normocephalic, atraumatic Eyes: Conjunctiva normal, no discharge. [] Neck: Normal range of motion, no tenderness, supple, no stridor. Trachea midline Cardiovascular:Heart rate regular rhythm, was 2 radial and +2 posterior tibial pulses bilaterally. Lungs & Thorax: Bilateral breath sounds clear to auscultation [] Abdomen: Abdomen is soft, nondistended, mild suprapubic tenderness to palpation. Normal bowel sounds, no CVA tenderness, no flank or abdominal ecchymoses. No palpable mass organomegaly : Urethral meatus is patent, no purulent drainage or discharge. Urinary catheter is changed, Ryan catheter appears to be draining urine, catheter bulb inflates without resistance. Testes are descended, no testicle or scrotal tenderness, no warmth or erythema. Skin: Warm, dry, no erythema, no rash. [] Back: No tenderness, no CVA tenderness. [] Extremities: No tenderness, no cyanosis, no clubbing, ROM intact, no edema. [] Neurologic: Alert and oriented X 3, normal motor function, normal sensory function, no focal deficits noted. [] Psychologic: Affect normal, judgement normal, mood normal. [] EKG: EKG: [] Radiology/Procedures: Radiology/Procedures: [] Course & Med Decision Making: Course & Med Decision Making Pertinent Labs and Imaging studies reviewed. (See chart for details) Nursing staff changed out his catheter shortly after arrival. He is draining plenty of urine. The patient complained of some suprapubic pain and penile pain. He is given a liter of IV fluids and IV fentanyl. He is given a dose of IV antibiotics. He does have some significant pyuria. The urine is sent for culture. He will be given a 5-day course of Levaquin. He understands that urine culture is pending. I told him to keep his scheduled appointment with urology next week. Post catheter placement, bedside bladder scan demonstrates no urinary retention or significant volume of urine in the bladder. Home care instructions are provided. Strict return precautions are given. He verbalizes understanding. Cheri Disclaimer: Cheri Disclaimer: This electronic medical record was generated, in whole or in part, using a voice recognition dictation system. Departure Departure Impression: Primary Impression: Obstructed Ryan catheter Qualified Codes: T83.091A - Other mechanical complication of indwelling urethral catheter, initial encounter Additional Impression: Urinary tract infection Disposition: HOME / SELF CARE / HOMELESS Condition: STABLE Referrals: SEFERINO MENJIVAR MD (PCP) Patient Instructions: Catheter-Associated Urinary Tract Infection FAQs - FARMER, Ryan Catheter Care, Adult Additional Instructions: Take the antibiotics as directed until gone. Your urine culture is pending, and if there is any need to change her medications or treatment regimen based on this, you should be notified, within about 48 hours. Return to the ER for severe abdominal pain, fever, vomiting, dehydration or any other concerns. Please contact your urologist and primary care doctor for follow-up. Keep your scheduled urology appointment next week Scripts Levofloxacin (LEVOFLOXACIN) 750 Mg Tablet 1 TAB PO DAILY, #5 TAB Prov: BECKA MITCHELL DO 07/21/21 BECKA MITCHELL DO Jul 21, 2021 00:53
[2021-07-21 01:41] LABS: BASO # 0.1 x10^3/uL (0.0-0.2); BASO % 1 % (0-3); EOS # 0.2 x10^3/uL (0.0-0.7); EOS % 3 % (0-3); HEMATOCRIT 38.3 % (39.0-53.0); HEMOGLOBIN 12.6 g/dL (13.0-17.5); LYMPH # 1.7 x10^3/uL (1.0-4.8); LYMPH % 20 % (24-48); MEAN CORPUSCULAR HEMOGLOBIN 28 pg (25-35); MEAN CORPUSCULAR HGB CONC 33 g/dL (31-37); MEAN CORPUSCULAR VOLUME 84 fL (79-100); MONO # 0.5 x10^3/uL (0.0-1.1); MONO % 5 % (0-9); NEUT # 6.2 x10^3/uL (1.8-7.7); NEUT % 71 % (31-73); PLATELET COUNT 300 x10^3/uL (140-400); RED BLOOD COUNT 4.56 x10^6/uL (4.30-5.70); RED CELL DISTRIBUTION WIDTH 15.1 % (11.5-14.5); WHITE BLOOD COUNT 8.6 x10^3/uL (4.0-11.0)
[2021-07-21 01:46] LABS: CALCIUM 8.7 mg/dL (8.5-10.1); CREATININE 1.2 mg/dL (0.7-1.3); GFR 62.4; POTASSIUM 4.8 mmol/L (3.5-5.1)
[2021-07-21 01:54] LABS: BILIRUBIN,URINE NEGATIVE (NEG); CLARITY,URINE CLOUDY; COLOR,URINE YELLOW; NITRITE,URINE POSITIVE (NEG); PH,URINE 5.5 (<5.0-8.0); PROTEIN,URINE >=300 mg/dL (NEG-TRACE); UROBILINOGEN,URINE 0.2 mg/dL (0.2 mg/dL)
[2021-07-21 01:55] LABS: BACTERIA,URINE FEW /HPF (0-FEW); RBC,URINE OCC /HPF (0-2); WBC,URINE >40 /HPF (0-4)
[2021-07-21 01:56] LABS: HYALINE CASTS, URINE MODERATE /HPF
[2021-07-21] MEDS ORDERED: fentaNYL PF VIAL 100 MCG/2 ML VIAL IVP ONE (02:00)
[2021-07-21] MEDS ORDERED: IV NORMAL SALINE 1000ML BAG 1,000 ML IV ONE (02:00)
[2021-07-21] MEDS ORDERED: cefTRIAXone IV Push 1 GM VIAL. IVP ONE (04:00)
[2021-07-21] MEDS ORDERED: LEVO750T5 PO (04:31)
[2021-07-21 05:00] VITALS: BP 133/86
== END 2021-07-21 05:18 | disposition home or self-care (01) ==
LOC: ER 00:33
DX: T83.091A Other mechanical complication of indwelling urethral catheter, initial encounter (principal); N39.0 Urinary tract infection, site not specified; R10.2 Pelvic and perineal pain; N48.89 Other specified disorders of penis; I10 Essential (primary) hypertension; E11.40 Type 2 diabetes mellitus with diabetic neuropathy, unspecified; Z91.041 Radiographic dye allergy status; Y84.6 Urinary catheterization as the cause of abnormal reaction of the patient, or of later complication, without mention of misadventure at the time of the procedure; Y92.89 Other specified places as the place of occurrence of the external cause
CPT/HCPCS: 36415; 51702; 80048; 81001; 85025; 87077; 87086; 96361; 96374; 96375; 99285; J0696; J3010; J7030

== ENCOUNTER 2021-09-25 23:03 | Emergency (ER) | payer MEDICAID ==
[~2021-09-25] VITALS: Ht 172.7 cm; Wt 81.8 kg
[~2021-09-25 23:03] MED LIST changes: +LEVO750T5 PO
--- NOTE | 2021-09-25 23:27 | PHYS DOC ---
Past Medical History Past Medical History: Diabetes-Type II, Hypertension, Kidney Stone Additional Past Medical Histor: neuropathy, diet controlled diabetes, chronic ryan since Mar 2021 s/p AMS (ALEXANDRA SANTOS [place] [employer]) Past Surgical History: No Surgical History, Other Additional Past Surgical Histo: unknown (ALEXANDRA SANTOS [place] [employer]) Smoking Status: Never Smoker Alcohol Use: None (ALEXANDRA SANTOS [place] [employer]) General Adult HPI: HPI: Patient is a 55 year old male patient with history of CVA in 2019 while he lived in [place], hypertension, diabetes type 2, bipolar, who presents today to be evaluated for right shoulder pain. Patient states he is wheelchair-bound. He states he fell during a transfer. Denies any loss of consciousness, denies hitting his head on the ground. Denies any neck pain, mid or low back pain (SHERLYJersonALEXANDRA [place] CELL[employer]OID TRIMMER) Review of Systems: Review of Systems: Constitutional: Denies fever or chills. [] Eyes: Denies change in visual acuity. [] HENT: Denies nasal congestion or sore throat. [] Respiratory: Denies cough or shortness of breath. [] Cardiovascular: Denies chest pain or edema. [] GI: Denies abdominal pain, nausea, vomiting, bloody stools or diarrhea. [] : Denies dysuria. [] Musculoskeletal: Reports right shoulder pain. Denies back pain Integument: Denies rash. [] Neurologic: Denies headache, focal weakness or sensory changes. [] Psychiatric: Denies depression or anxiety. [] (TOMALEXANDRA Fraga CELLULOID TRIMMER) Heart Score: C/O Chest Pain: N/A Risk Factors: Risk Factors: DM, Current or recent (<one month) smoker, HTN, HLP, family history of CAD, obesity. Risk Scores: Score 0 - 3: 2.5% MACE over next 6 weeks - Discharge Home Score 4 - 6: 20.3% MACE over next 6 weeks - Admit for Clinical Observation Score 7 - 10: 72.7% MACE over next 6 weeks - Early Invasive Strategies (ALEXANDRA SANTOS CE[employer] TRIMMER) Allergies: Allergies: Allergies Coded Allergies Type Severity Reaction Last Updated Verified I S O L A T I O N *CONTACT* Allergy Unknown 07/21/21 Yes No Known Medication Allergies Allergy Unknown 07/21/21 Yes (ALEXANDRA SANTOS APRN) Physical Exam: PE: Constitutional: Well developed, well nourished, no acute distress, non-toxic appearance. [] HENT: Normocephalic, atraumatic, bilateral external ears normal, oropharynx moist, no oral exudates, nose normal. [] Eyes: PERRLA, EOMI, conjunctiva normal, no discharge. [] Neck: Normal range of motion, no tenderness, supple, no stridor. [] Cardiovascular:Heart rate regular rhythm, no murmur [] Lungs & Thorax: Bilateral breath sounds clear to auscultation [] Abdomen: Bowel sounds normal, soft, no tenderness, no masses, no pulsatile masses. [] Male : Uncircumcised male with Ryan catheter, cloudy urine Skin: Warm, dry, no erythema, no rash. [] Back: No tenderness, no CVA tenderness. [] Extremities: Right shoulder with no obvious deformity. Full passive range of motion to the right shoulder. Adequate radial, medial, ulnar sensation to the right upper extremity. +2 right radial pulse. Cap refill less than 2 seconds in the right fingers. Neurologic: Alert and oriented X 3, normal motor function, normal sensory function, no focal deficits noted. [] Psychologic: Affect normal, judgement normal, mood normal. [] (ALEXANDRA SANTOS APRN) EKG: EKG: [] (ALEXANDRA SANTOS APRN) Radiology/Procedures: Radiology/Procedures: []PROCEDURE: SHOULDER 2+V RIGHT INDICATION: Reason: fall pain / Spl. Instructions: / History: COMPARISON: None. IMPRESSION: Right shoulder: 3 views obtained. Hypoexpanded appearance of the right lung. Device projecting over the mediastinum. No acute fracture or dislocation. Osseous demineralization versus lucent lesion at the right proximal humerus measuring 23 mm. Electronically signed by: Tracy Bravo MD (09/26/2021 12:14 AM) [id number] DICTATED and SIGNED BY: TRACY BRAVO MD DATE: 09/26/21 0011 (ALEXANDRA SANTOS APRN) Course & Med Decision Making: Course & Med Decision Making Pertinent Labs and Imaging studies reviewed. (See chart for details) This a 55-year-old male patient presenting to the ED today with right shoulder pain that began after he fell today. Right shoulder x-rays are negative for any acute findings, discharged back to home. He has a Ryan catheter and he requested we change it to the ED. Ryan catheter was changed. Recommended he follows up with his own urologist and PCP. (ALEXANDRA SANTOS APRN) Cheri Disclaimer: Dragon Disclaimer: This electronic medical record was generated, in whole or in part, using a voice recognition dictation system. (ALEXANDRA SANTOS APRN) Departure Departure Impression: Primary Impression: Fall Qualified Codes: W19.XXXA - Unspecified fall, initial encounter Additional Impressions: Shoulder pain, right Qualified Codes: M25.511 - Pain in right shoulder Urinary catheter (Ryan) change required Disposition: 01 HOME / SELF CARE / HOMELESS Condition: STABLE Referrals: SEFERINO MENJIVAR MD (PCP) follow up next week JODIE SCHMID Jr. DO follow up in one week Patient Instructions: Fall Prevention and Home Safety, Ryan Catheter Care, Adult, Shoulder Pain, [id number] Additional Instructions: You were evaluated in the emergency room for right shoulder pain, your right shoulder x-rays are negative for any acute findings. Please follow-up with your primary care doctor and the provided orthopedic doctor in 1 week. Please follow-up with your urologist as soon as you can Attending Signature Attending Signature I have reviewed the PA/CLINICAL REHABILITATION SPECIALIST's note and plan of care. I was available for consultation as needed during the patient's visit in the emergency department. I agree with the clinical impression, plan, and disposition. (SARA WALKER DO) ALEXANDRA SANTOS APRN September 25, 2021 23:27 SARA WALKER DO September 26, 2021 01:12
--- NOTE | 2021-09-26 00:16 | RAD ---
INDICATION: Reason: fall pain / Spl. Instructions: / History: COMPARISON: None. IMPRESSION: Right shoulder: 3 views obtained. Hypoexpanded appearance of the right lung. Device projecting over t he mediastinum. No acute fracture or dislocation. Osseous demineralization versus lucent lesion at th e right proximal humerus measuring 23 mm. Electronically signed by: Keron Teixeira MD (09/26/2021 12:14 AM) [id number]
[2021-09-26 01:25] VITALS: BP 190/95
== END 2021-09-26 01:55 | disposition home or self-care (01) ==
LOC: ER 23:03
DX: T83.098A Other mechanical complication of other urinary catheter, initial encounter (principal); M25.511 Pain in right shoulder; G89.11 Acute pain due to trauma; E11.40 Type 2 diabetes mellitus with diabetic neuropathy, unspecified; I10 Essential (primary) hypertension; F31.9 Bipolar disorder, unspecified; Z86.73 Personal history of transient ischemic attack (TIA), and cerebral infarction without residual deficits; Z91.041 Radiographic dye allergy status; W18.39XA Other fall on same level, initial encounter; Y93.89 Activity, other specified; Y92.89 Other specified places as the place of occurrence of the external cause; Y99.8 Other external cause status
CPT/HCPCS: 51702; 73030; 99284